=== PATIENT | female | born 1975 | race Caucasian/White ===

== ENCOUNTER 2017-10-03 13:19 | Inpatient (IN) | payer OTHER, MEDICARE ==
[~2017-10-03] VITALS: Ht 160 cm; Wt 78.5 kg
[~2017-10-03 13:19] MED LIST: BACL10 PO; GABA100 PO; HYDR1TAB94 PO; IBUP600 PO; METO25ER PO; Norco 5-325 Ta1 EACH PO; THYR60 PO
[2017-10-03 14:25] LABS: BASOPHILS ABSOLUTE AUTO 0.07 K/mm3 (0.00-0.23); BASOPHILS PERCENT AUTO 1 % (0-2); EOSINOPHILS ABSOLUTE AUTO 0.59 K/mm3 (0.00-0.68); EOSINOPHILS PERCENT AUTO 6 % (0-6); Hematocrit 38.4 % (33.0-51.0); Hemoglobin 12.9 g/dL (11.5-16.0); IMMATURE GRAN ABSOLUTE AUTO 0.04 K/mm3 (0.00-0.10); IMMATURE GRAN PERCENT AUTO 0 % (0-1); LYMPHOCYTES ABSOLUTE AUTO 2.25 K/mm3 (0.84-5.20); LYMPHOCYTES PERCENT AUTO 24 % (21-46); MONOCYTES ABSOLUTE AUTO 0.91 K/mm3 (0.16-1.47); MONOCYTES PERCENT AUTO 10 % (4-13); Mean Corpuscular HGB 30.8 pg (26.0-34.0); Mean Corpuscular HGB Conc 33.6 g/dL (31.5-36.5); Mean Corpuscular Volume 92 fL (80-100); Mean Platelet Volume 10.7 fL (9.1-12.4); NEUTROPHILS ABSOLUTE AUTO 5.39 K/mm3 (1.96-9.15); NEUTROPHILS PERCENT AUTO 58 % (41-73); Platelet Count 239 K/mm3 (150-400); RDW Coefficient Variation 13.4 % (11.7-14.2); RDW Standard Deviation 45.1 fL (35.1-46.3); Red Blood Cell Count 4.19 M/mm3 (3.80-5.20); White Blood Cell Count 9.25 K/mm3 (4.00-11.30)
[2017-10-03 15:01] LABS: Alanine Aminotransfer (ALT/SGP 32 U/L (12-78); Albumin, Blood 3.9 g/dL (3.4-5.0); Albumin/Globulin Ratio 1.1 (0.8-1.8); Alk Phos 72 U/L (50-136); Anion Gap 7 mmol/L (6-16); Aspartate Aminotrans (AST/SGOT 35 U/L (12-37); Bilirubin, Total 0.3 mg/dL (0.1-1.0); Blood Urea Nitrogen 14 mg/dL (8-24); Bun/Creatinine Ratio 15.7 (12.0-20.0); CO2, Blood 25 mmol/L (21-32); Calcium, Blood 8.4 mg/dL (8.5-10.1); Chloride, Blood 111 mmol/L (98-108); Creatinine, Blood 0.89 mg/dL (0.40-1.00); Globulin, Blood 3.4 g/dL (2.2-4.0); Glomerular Filtration Rate >60 (60-); Glucose, Blood 96 mg/dL (70-99); Potassium, Blood 4.1 mmol/L (3.5-5.5); Sodium, Blood 143 mmol/L (136-145); Total Protein, Blood 7.3 g/dL (6.4-8.2); Troponin I 0.149 ng/mL (0.000-0.040)
[2017-10-03] MEDS ORDERED: GABA100 PO (16:53)
[2017-10-03] MEDS ORDERED: FAMO20 PO (16:56)
[2017-10-04 02:32] LABS: CHOL/HDL RATIO 3.9; Cholesterol 213 mg/dL (50-200); HDL Cholesterol 54 mg/dL (>39); LDL/HDL RATIO 2.5; Low Density Lipoprotein Chol 134 mg/dL (0-110); Triglycerides 124 mg/dL (30-160); Very Low Density Lipoprot Chol 24 mg/dL (6-32)
[2017-10-04 12:57] LABS: International Normalized Ratio 1.15
[2017-10-05] MEDS ORDERED: ASPI81CH PO (09:24)
[2017-10-05] MEDS ORDERED: ATOR40TA PO (09:25)
[2017-10-05] MEDS ORDERED: TORSE20 PO (09:26)
== END 2017-10-05 11:00 | disposition home or self-care (01) | DRG 282 ==
LOC: ER 13:19 → MEDS 13:20 → ICUW 16:40 → MEDS 16:40 → ICUW 10-04 11:03
PROVIDERS: Emergency Medicine; Family Medicine; Internal Medicine Cardiovascular Disease
PROC: 4A023N7 Measurement of Cardiac Sampling and Pressure, Left Heart, Percutaneous Approach (ICD-10-PCS; principal; 2017-10-04)
PROC: B211YZZ Fluoroscopy of Multiple Coronary Arteries using Other Contrast (ICD-10-PCS; 2017-10-04)
DX: I42.1 Obstructive hypertrophic cardiomyopathy (principal); I21.4 Non-ST elevation (NSTEMI) myocardial infarction; E03.9 Hypothyroidism, unspecified; R79.89 Other specified abnormal findings of blood chemistry; I25.10 Atherosclerotic heart disease of native coronary artery without angina pectoris; Z95.0 Presence of cardiac pacemaker; I10 Essential (primary) hypertension; E11.9 Type 2 diabetes mellitus without complications
CPT/HCPCS: 36415; 71046; 80053; 80061; 83880; 84443; 84484; 85025; 85379; 85610; 86850; 86900; 86901; 93005; 93010; 93306; 93458; 96360; 96372; 99152; 99285; C1769; C1894; G0378; J0690; J1644; J1650; J2060; J2250; J3010; J7030; Q9967

== ENCOUNTER 2017-10-06 23:59 | Emergency (ER) | payer OTHER, MEDICARE ==
[~2017-10-06] VITALS: Ht 160 cm; Wt 78.0 kg
[~2017-10-06 23:59] MED LIST changes: +ASPI81CH PO; +ATOR40TA PO; +FAMO20 PO; +TORSE20 PO
[2017-10-07 01:12] LABS: BASOPHILS ABSOLUTE AUTO 0.06 K/mm3 (0.00-0.23); BASOPHILS PERCENT AUTO 1 % (0-2); EOSINOPHILS ABSOLUTE AUTO 0.45 K/mm3 (0.00-0.68); EOSINOPHILS PERCENT AUTO 5 % (0-6); Hematocrit 38.9 % (33.0-51.0); IMMATURE GRAN ABSOLUTE AUTO 0.02 K/mm3 (0.00-0.10); IMMATURE GRAN PERCENT AUTO 0 % (0-1); LYMPHOCYTES ABSOLUTE AUTO 3.04 K/mm3 (0.84-5.20); LYMPHOCYTES PERCENT AUTO 34 % (21-46); MONOCYTES ABSOLUTE AUTO 0.98 K/mm3 (0.16-1.47); MONOCYTES PERCENT AUTO 11 % (4-13); Mean Corpuscular HGB 30.6 pg (26.0-34.0); Mean Corpuscular HGB Conc 33.4 g/dL (31.5-36.5); Mean Corpuscular Volume 92 fL (80-100); Mean Platelet Volume 10.8 fL (9.1-12.4); NEUTROPHILS ABSOLUTE AUTO 4.37 K/mm3 (1.96-9.15); NEUTROPHILS PERCENT AUTO 49 % (41-73); Platelet Count 263 K/mm3 (150-400); RDW Coefficient Variation 13.4 % (11.7-14.2); RDW Standard Deviation 45.1 fL (35.1-46.3); Red Blood Cell Count 4.25 M/mm3 (3.80-5.20); White Blood Cell Count 8.92 K/mm3 (4.00-11.30)
[2017-10-07 01:25] LABS: Alanine Aminotransfer (ALT/SGP 45 U/L (12-78); Albumin/Globulin Ratio 1.1 (0.8-1.8); Alk Phos 63 U/L (50-136); Anion Gap 7 mmol/L (6-16); Aspartate Aminotrans (AST/SGOT 49 U/L (12-37); Bilirubin, Total 0.2 mg/dL (0.1-1.0); Blood Urea Nitrogen 17 mg/dL (8-24); Bun/Creatinine Ratio 20.3 (12.0-20.0); CO2, Blood 25 mmol/L (21-32); Calcium, Blood 9.3 mg/dL (8.5-10.1); Chloride, Blood 106 mmol/L (98-108); Creatinine, Blood 0.84 mg/dL (0.40-1.00); Globulin, Blood 3.5 g/dL (2.2-4.0); Glomerular Filtration Rate >60 (60-); Glucose, Blood 83 mg/dL (70-99); Potassium, Blood 4.3 mmol/L (3.5-5.5); Sodium, Blood 138 mmol/L (136-145); Total Protein, Blood 7.5 g/dL (6.4-8.2)
[2017-10-07 03:23] LABS: Troponin I 0.164 ng/mL (0.000-0.040)
== END 2017-10-07 03:45 | disposition home or self-care (01) ==
LOC: ER 23:59
PROVIDERS: Emergency Medicine
DX: R60.9 Edema, unspecified (principal); Z88.8 Allergy status to other drugs, medicaments and biological substances; Z79.899 Other long term (current) drug therapy; Z79.82 Long term (current) use of aspirin
CPT/HCPCS: 71046; 80053; 83880; 84484; 85025; 93005; 93010; 96374; 96375; 99283; J1885

== ENCOUNTER 2017-10-19 11:28 | Observation (INO) | payer OTHER, MEDICARE ==
[~2017-10-19] VITALS: Ht 160 cm; Wt 77.5 kg
[2017-10-19 11:54] LABS: BASOPHILS ABSOLUTE AUTO 0.07 K/mm3 (0.00-0.23); BASOPHILS PERCENT AUTO 1 % (0-2); EOSINOPHILS ABSOLUTE AUTO 0.29 K/mm3 (0.00-0.68); EOSINOPHILS PERCENT AUTO 4 % (0-6); Hematocrit 38.9 % (33.0-51.0); Hemoglobin 13.5 g/dL (11.5-16.0); IMMATURE GRAN ABSOLUTE AUTO 0.04 K/mm3 (0.00-0.10); IMMATURE GRAN PERCENT AUTO 1 % (0-1); LYMPHOCYTES ABSOLUTE AUTO 2.05 K/mm3 (0.84-5.20); LYMPHOCYTES PERCENT AUTO 25 % (21-46); MONOCYTES ABSOLUTE AUTO 0.86 K/mm3 (0.16-1.47); MONOCYTES PERCENT AUTO 10 % (4-13); Mean Corpuscular HGB 31.2 pg (26.0-34.0); Mean Corpuscular HGB Conc 34.7 g/dL (31.5-36.5); Mean Corpuscular Volume 90 fL (80-100); Mean Platelet Volume 10.6 fL (9.1-12.4); NEUTROPHILS ABSOLUTE AUTO 4.95 K/mm3 (1.96-9.15); NEUTROPHILS PERCENT AUTO 60 % (41-73); Platelet Count 275 K/mm3 (150-400); RDW Coefficient Variation 13.2 % (11.7-14.2); RDW Standard Deviation 43.2 fL (35.1-46.3); Red Blood Cell Count 4.33 M/mm3 (3.80-5.20); White Blood Cell Count 8.26 K/mm3 (4.00-11.30)
[2017-10-19] MEDS ORDERED: STIOLTO RESPIMAT4 GM (12:19)
[2017-10-19] MEDS ORDERED: ALBU90OI INH (12:20)
[2017-10-19] MEDS ORDERED: ARNUITY ELLIP200 MCG (12:20)
[2017-10-19] MEDS ORDERED: ACYC200 PO (12:21)
[2017-10-19 12:22] LABS: Alanine Aminotransfer (ALT/SGP 49 U/L (12-78); Albumin, Blood 3.9 g/dL (3.4-5.0); Alk Phos 66 U/L (50-136); Anion Gap 7 mmol/L (6-16); Aspartate Aminotrans (AST/SGOT 59 U/L (12-37); Bilirubin, Total 0.3 mg/dL (0.1-1.0); Blood Urea Nitrogen 21 mg/dL (8-24); Bun/Creatinine Ratio 20.4 (12.0-20.0); CO2, Blood 33 mmol/L (21-32); Calcium, Blood 9.4 mg/dL (8.5-10.1); Chloride, Blood 99 mmol/L (98-108); Creatinine, Blood 1.03 mg/dL (0.40-1.00); Globulin, Blood 3.9 g/dL (2.2-4.0); Glomerular Filtration Rate >60 (60-); Glucose, Blood 104 mg/dL (70-99); Sodium, Blood 139 mmol/L (136-145); Total Protein, Blood 7.8 g/dL (6.4-8.2)
[2017-10-19] MEDS ORDERED: NITR.4SL SL (12:22)
[2017-10-19] MEDS ORDERED: FERSU90EL PO (12:24)
[2017-10-19] MEDS ORDERED: METO25ER PO (13:20)
[2017-10-19] MEDS ORDERED: THYR60 PO (13:20)
[2017-10-19] MEDS ORDERED: ATOR40TA PO (13:20)
[2017-10-19] MEDS ORDERED: ASPI81CH PO (13:20)
[2017-10-19] MEDS ORDERED: TORSE20 PO (13:20)
[2017-10-19] MEDS ORDERED: FAMO20 PO (13:21)
[2017-10-19] MEDS ORDERED: IBUP600 PO (13:21)
[2017-10-19] MEDS ORDERED: BACL10 PO (13:22)
[2017-10-19] MEDS ORDERED: VENL37.5 PO (17:55)
[2017-10-19] MEDS ORDERED: MELA3 PO (17:55)
[2017-10-19] MEDS ORDERED: GABA100 PO (17:55)
[2017-10-19] MEDS ORDERED: Excedrin Extra1 EACH PO (17:56)
[2017-10-19] MEDS ORDERED: XYZAL5 MG PO (17:58)
[2017-10-20 04:40] LABS: Bun/Creatinine Ratio 23.7 (12.0-20.0); Calcium, Blood 9.3 mg/dL (8.5-10.1); Creatinine, Blood 1.14 mg/dL (0.40-1.00); Potassium, Blood 3.1 mmol/L (3.5-5.5); Troponin I 0.421 ng/mL (0.000-0.040)
[2017-10-20] MEDS ORDERED: POTA10T PO (14:54)
== END 2017-10-20 17:55 | disposition home or self-care (01) ==
LOC: ER 11:28 → PCU 11:29
PROVIDERS: Hospitalist; Physician Assistant
DX: R55 Syncope and collapse (principal); I42.1 Obstructive hypertrophic cardiomyopathy; E78.5 Hyperlipidemia, unspecified; I11.0 Hypertensive heart disease with heart failure; I50.9 Heart failure, unspecified; E03.9 Hypothyroidism, unspecified; K21.9 Gastro-esophageal reflux disease without esophagitis; Z95.810 Presence of automatic (implantable) cardiac defibrillator; E87.6 Hypokalemia
CPT/HCPCS: 36415; 76830; 76856; 80048; 80053; 83880; 84443; 84484; 85025; 93005; 93010; 96372; 96374; 96375; 96376; 99285; G0378; J1650; J1940; J2001; J2405; J3480

== ENCOUNTER 2017-10-24 04:58 | Emergency (ER) | payer OTHER, MEDICARE ==
[~2017-10-24] VITALS: Ht 160 cm; Wt 74.8 kg
[~2017-10-24 04:58] MED LIST changes: +ACYC200 PO; +ALBU90OI INH; +ARNUITY ELLIP200 MCG; +Excedrin Extra1 EACH PO; +FERSU90EL PO; +MELA3 PO; +NITR.4SL SL; +POTA10T PO; +STIOLTO RESPIMAT4 GM; +VENL37.5 PO; +XYZAL5 MG PO
[2017-10-24 06:52] LABS: Alanine Aminotransfer (ALT/SGP 46 U/L (12-78); Albumin, Blood 4.5 g/dL (3.4-5.0); Albumin/Globulin Ratio 1.1 (0.8-1.8); Alk Phos 74 U/L (50-136); Anion Gap 10 mmol/L (6-16); Aspartate Aminotrans (AST/SGOT 53 U/L (12-37); Bilirubin, Total 0.5 mg/dL (0.1-1.0); Blood Urea Nitrogen 14 mg/dL (8-24); Bun/Creatinine Ratio 14.8 (12.0-20.0); CO2, Blood 25 mmol/L (21-32); Calcium, Blood 9.4 mg/dL (8.5-10.1); Chloride, Blood 102 mmol/L (98-108); Creatinine, Blood 0.95 mg/dL (0.40-1.00); Glomerular Filtration Rate >60 (60-); Glucose, Blood 88 mg/dL (70-99); Sodium, Blood 137 mmol/L (136-145); Total Protein, Blood 8.5 g/dL (6.4-8.2)
[2017-10-24 07:50] LABS: Magnesium, Blood 2.4 mg/dL (1.6-2.4); Troponin I 0.146 ng/mL (0.000-0.040)
[2017-10-24 08:05] LABS: BASOPHILS ABSOLUTE AUTO 0.08 K/mm3 (0.00-0.23); BASOPHILS PERCENT AUTO 1 % (0-2); EOSINOPHILS ABSOLUTE AUTO 0.22 K/mm3 (0.00-0.68); EOSINOPHILS PERCENT AUTO 3 % (0-6); Hematocrit 40.6 % (33.0-51.0); Hemoglobin 13.6 g/dL (11.5-16.0); IMMATURE GRAN ABSOLUTE AUTO 0.03 K/mm3 (0.00-0.10); IMMATURE GRAN PERCENT AUTO 0 % (0-1); LYMPHOCYTES ABSOLUTE AUTO 3.01 K/mm3 (0.84-5.20); LYMPHOCYTES PERCENT AUTO 35 % (21-46); MONOCYTES ABSOLUTE AUTO 1.11 K/mm3 (0.16-1.47); MONOCYTES PERCENT AUTO 13 % (4-13); Mean Corpuscular HGB 30.6 pg (26.0-34.0); Mean Corpuscular HGB Conc 33.5 g/dL (31.5-36.5); Mean Corpuscular Volume 91 fL (80-100); Mean Platelet Volume 10.5 fL (9.1-12.4); NEUTROPHILS ABSOLUTE AUTO 4.06 K/mm3 (1.96-9.15); NEUTROPHILS PERCENT AUTO 48 % (41-73); Platelet Count 236 K/mm3 (150-400); RDW Coefficient Variation 13.2 % (11.7-14.2); RDW Standard Deviation 44.7 fL (35.1-46.3); Red Blood Cell Count 4.44 M/mm3 (3.80-5.20); White Blood Cell Count 8.51 K/mm3 (4.00-11.30)
[2017-10-24] MEDS ORDERED: HYDMOR2 PO (08:56)
[2017-10-24] MEDS ORDERED: Zofran Odt4 MG SL (08:56)
== END 2017-10-24 09:00 | disposition home or self-care (01) ==
LOC: ER 04:58
PROVIDERS: Emergency Medicine
DX: K85.90 Acute pancreatitis without necrosis or infection, unspecified (principal); K74.60 Unspecified cirrhosis of liver; G89.29 Other chronic pain; I25.10 Atherosclerotic heart disease of native coronary artery without angina pectoris; I42.9 Cardiomyopathy, unspecified; I50.9 Heart failure, unspecified; I25.2 Old myocardial infarction; Z88.4 Allergy status to anesthetic agent; Z88.5 Allergy status to narcotic agent; Z88.8 Allergy status to other drugs, medicaments and biological substances; Z79.82 Long term (current) use of aspirin; Z79.899 Other long term (current) drug therapy
CPT/HCPCS: 36415; 71046; 76705; 80053; 83690; 83735; 83880; 84484; 85025; 93005; 93010; J2405; J7030

== ENCOUNTER 2017-10-25 13:01 | Emergency (ER) | payer OTHER, MEDICARE ==
[~2017-10-25] VITALS: Ht 160 cm; Wt 77.0 kg
[~2017-10-25 13:01] MED LIST changes: +HYDMOR2 PO; +Zofran Odt4 MG SL
[2017-10-25 14:48] LABS: Source, Urine Clean Catch
[2017-10-25 14:59] LABS: Bilirubin, Urine Neg (Neg); Blood, Urine Neg (Neg); Glucose Qualitative, Urine Neg (Neg); Ketones, Urine Neg (Neg); Leukocyte Esterase, Urine Neg (Neg); Nitrite, Urine Neg (Neg); Protein, Urine Neg (Neg); Urobilinogen, Urine NORM (Normal)
[2017-10-25 15:10] LABS: Appearance, Urine Clear (Clear); Color, Urine Pale Yellow (P-Yellow)
[2017-10-25 15:19] LABS: Alanine Aminotransfer (ALT/SGP 35 U/L (12-78); Albumin, Blood 4.3 g/dL (3.4-5.0); Albumin/Globulin Ratio 1.2 (0.8-1.8); Alk Phos 67 U/L (50-136); Anion Gap 11 mmol/L (6-16); Aspartate Aminotrans (AST/SGOT 34 U/L (12-37); Bilirubin, Total 0.3 mg/dL (0.1-1.0); Blood Urea Nitrogen 15 mg/dL (8-24); Bun/Creatinine Ratio 15.9 (12.0-20.0); CO2, Blood 23 mmol/L (21-32); Calcium, Blood 9.8 mg/dL (8.5-10.1); Chloride, Blood 106 mmol/L (98-108); Creatinine, Blood 0.94 mg/dL (0.40-1.00); Free Thyroxine 1.69 ng/dL (0.70-1.60); Globulin, Blood 3.5 g/dL (2.2-4.0); Glomerular Filtration Rate >60 (60-); Glucose, Blood 87 mg/dL (70-99); Potassium, Blood 3.8 mmol/L (3.5-5.5); Sodium, Blood 140 mmol/L (136-145); Total Protein, Blood 7.8 g/dL (6.4-8.2); Troponin I 0.151 ng/mL (0.000-0.040)
[2017-10-25 15:56] LABS: BASOPHILS ABSOLUTE AUTO 0.06 K/mm3 (0.00-0.23); BASOPHILS PERCENT AUTO 1 % (0-2); EOSINOPHILS PERCENT AUTO 3 % (0-6); Hematocrit 39.8 % (33.0-51.0); Hemoglobin 13.4 g/dL (11.5-16.0); IMMATURE GRAN ABSOLUTE AUTO 0.02 K/mm3 (0.00-0.10); IMMATURE GRAN PERCENT AUTO 0 % (0-1); LYMPHOCYTES PERCENT AUTO 31 % (21-46); MONOCYTES ABSOLUTE AUTO 1.06 K/mm3 (0.16-1.47); MONOCYTES PERCENT AUTO 10 % (4-13); Mean Corpuscular HGB 30.9 pg (26.0-34.0); Mean Corpuscular HGB Conc 33.7 g/dL (31.5-36.5); Mean Corpuscular Volume 92 fL (80-100); Mean Platelet Volume 10.8 fL (9.1-12.4); NEUTROPHILS PERCENT AUTO 55 % (41-73); Platelet Count 262 K/mm3 (150-400); RDW Coefficient Variation 13.2 % (11.7-14.2); RDW Standard Deviation 44.8 fL (35.1-46.3); Red Blood Cell Count 4.33 M/mm3 (3.80-5.20); White Blood Cell Count 10.84 K/mm3 (4.00-11.30)
[2017-10-25 17:04] LABS: U Amphetamine Screen Not Detected; U Barbituate Screen Not Detected; U Benzodiazapine Screen Not Detected; U Buprenorphine Screen Not Detected; U Cannabinoids Screen Not Detected; U Cocaine Screen Not Detected; U Methadone Screen Not Detected; U Methamphetamine Screen Not Detected; U Opiates Screen Not Detected; U Oxycodone Screen Not Detected; U Phencyclidine Screen Not Detected; U Propoxyphene Screen Not Detected
== END 2017-10-25 18:08 | disposition home or self-care (01) ==
LOC: ER 13:01
PROVIDERS: Emergency Medicine
DX: R07.9 Chest pain, unspecified (principal); R55 Syncope and collapse; R10.9 Unspecified abdominal pain; F12.90 Cannabis use, unspecified, uncomplicated; I42.1 Obstructive hypertrophic cardiomyopathy; I25.2 Old myocardial infarction; Z88.8 Allergy status to other drugs, medicaments and biological substances; Z88.5 Allergy status to narcotic agent; Z79.899 Other long term (current) drug therapy; Z79.82 Long term (current) use of aspirin
CPT/HCPCS: 36415; 74177; 80053; 81003; 81025; 83690; 83880; 84439; 84443; 84484; 85025; 93005; 93010; 99284; Q9967

== ENCOUNTER 2017-11-19 02:43 | Emergency (ER) | payer OTHER, MEDICARE ==
[~2017-11-19] VITALS: Ht 160 cm; Wt 78.7 kg
[~2017-11-19 02:43] MED LIST changes: +FURO80 PO; +ONDA4ODT MM; -VENL37.5 PO; +VENL37.5ER PO
[2017-11-19 04:45] LABS: BASOPHILS ABSOLUTE AUTO 0.04 K/mm3 (0.00-0.23); BASOPHILS PERCENT AUTO 0 % (0-2); EOSINOPHILS ABSOLUTE AUTO 0.21 K/mm3 (0.00-0.68); EOSINOPHILS PERCENT AUTO 2 % (0-6); Hematocrit 40.6 % (33.0-51.0); Hemoglobin 13.8 g/dL (11.5-16.0); IMMATURE GRAN ABSOLUTE AUTO 0.05 K/mm3 (0.00-0.10); IMMATURE GRAN PERCENT AUTO 1 % (0-1); LYMPHOCYTES ABSOLUTE AUTO 2.97 K/mm3 (0.84-5.20); LYMPHOCYTES PERCENT AUTO 30 % (21-46); MONOCYTES ABSOLUTE AUTO 1.13 K/mm3 (0.16-1.47); MONOCYTES PERCENT AUTO 11 % (4-13); Mean Corpuscular HGB 30.8 pg (26.0-34.0); Mean Corpuscular Volume 91 fL (80-100); Mean Platelet Volume 10.6 fL (9.1-12.4); NEUTROPHILS ABSOLUTE AUTO 5.63 K/mm3 (1.96-9.15); NEUTROPHILS PERCENT AUTO 56 % (41-73); Platelet Count 262 K/mm3 (150-400); RDW Coefficient Variation 13.6 % (11.7-14.2); RDW Standard Deviation 44.9 fL (35.1-46.3); Red Blood Cell Count 4.48 M/mm3 (3.80-5.20); White Blood Cell Count 10.03 K/mm3 (4.00-11.30)
[2017-11-19 05:07] LABS: Alanine Aminotransfer (ALT/SGP 37 U/L (12-78); Albumin, Blood 4.1 g/dL (3.4-5.0); Alk Phos 72 U/L (50-136); Anion Gap 11 mmol/L (6-16); Aspartate Aminotrans (AST/SGOT 31 U/L (12-37); Bilirubin, Total 0.3 mg/dL (0.1-1.0); Blood Urea Nitrogen 20 mg/dL (8-24); Bun/Creatinine Ratio 24.1 (12.0-20.0); CO2, Blood 28 mmol/L (21-32); Calcium, Blood 9.4 mg/dL (8.5-10.1); Chloride, Blood 100 mmol/L (98-108); Creatinine, Blood 0.83 mg/dL (0.40-1.00); Glomerular Filtration Rate >60 (60-); Glucose, Blood 82 mg/dL (70-99); Potassium, Blood 3.4 mmol/L (3.5-5.5); Sodium, Blood 139 mmol/L (136-145); Total Protein, Blood 8.1 g/dL (6.4-8.2); Troponin I 0.321 ng/mL (0.000-0.040)
[2017-11-19] MEDS ORDERED: TORSE20 PO (06:17)
[2017-11-19] MEDS ORDERED: POTA10T PO (06:17)
== END 2017-11-19 08:40 | disposition home or self-care (01) ==
LOC: ER 02:43
PROVIDERS: Emergency Medicine
DX: I42.2 Other hypertrophic cardiomyopathy (principal); I25.2 Old myocardial infarction; Z88.8 Allergy status to other drugs, medicaments and biological substances; Z88.5 Allergy status to narcotic agent; Z79.82 Long term (current) use of aspirin; Z79.899 Other long term (current) drug therapy
CPT/HCPCS: 36415; 80053; 83880; 84484; 85025; 93005; 93010; 96374; 99284; J1940

== ENCOUNTER 2017-12-03 06:12 | Observation (INO) | payer OTHER, MEDICARE ==
[~2017-12-03] VITALS: Ht 160 cm; Wt 73.4 kg
[~2017-12-03 06:12] MED LIST changes: +Armour Thyroid90 MG PO
[2017-12-03 07:49] LABS: BASOPHILS ABSOLUTE AUTO 0.05 K/mm3 (0.00-0.23); BASOPHILS PERCENT AUTO 1 % (0-2); EOSINOPHILS ABSOLUTE AUTO 0.14 K/mm3 (0.00-0.68); EOSINOPHILS PERCENT AUTO 1 % (0-6); Hematocrit 34.2 % (33.0-51.0); Hemoglobin 11.6 g/dL (11.5-16.0); IMMATURE GRAN ABSOLUTE AUTO 0.05 K/mm3 (0.00-0.10); IMMATURE GRAN PERCENT AUTO 1 % (0-1); LYMPHOCYTES ABSOLUTE AUTO 1.94 K/mm3 (0.84-5.20); LYMPHOCYTES PERCENT AUTO 19 % (21-46); MONOCYTES ABSOLUTE AUTO 0.81 K/mm3 (0.16-1.47); MONOCYTES PERCENT AUTO 8 % (4-13); Mean Corpuscular HGB 30.7 pg (26.0-34.0); Mean Corpuscular HGB Conc 33.9 g/dL (31.5-36.5); Mean Corpuscular Volume 91 fL (80-100); NEUTROPHILS PERCENT AUTO 71 % (41-73); Platelet Count 238 K/mm3 (150-400); RDW Coefficient Variation 13.2 % (11.7-14.2); RDW Standard Deviation 43.8 fL (35.1-46.3); Red Blood Cell Count 3.78 M/mm3 (3.80-5.20); White Blood Cell Count 10.19 K/mm3 (4.00-11.30)
[2017-12-03 08:08] LABS: Alanine Aminotransfer (ALT/SGP 53 U/L (12-78); Albumin/Globulin Ratio 1.1 (0.8-1.8); Alk Phos 73 U/L (50-136); Anion Gap 11 mmol/L (6-16); Aspartate Aminotrans (AST/SGOT 52 U/L (12-37); Bilirubin, Total 0.4 mg/dL (0.1-1.0); Blood Urea Nitrogen 17 mg/dL (8-24); Bun/Creatinine Ratio 17.1 (12.0-20.0); CO2, Blood 26 mmol/L (21-32); Calcium, Blood 8.7 mg/dL (8.5-10.1); Chloride, Blood 104 mmol/L (98-108); Creatinine, Blood 0.99 mg/dL (0.40-1.00); Globulin, Blood 3.7 g/dL (2.2-4.0); Glomerular Filtration Rate >60 (60-); Glucose, Blood 104 mg/dL (70-99); Potassium, Blood 3.5 mmol/L (3.5-5.5); Sodium, Blood 141 mmol/L (136-145); Total Protein, Blood 7.7 g/dL (6.4-8.2); Troponin I 0.192 ng/mL (0.000-0.040)
[2017-12-03] MEDS ORDERED: ZYRTEC10 M2 PO (11:20)
[2017-12-03] MEDS ORDERED: TORSE20 PO (11:21)
[2017-12-03] MEDS ORDERED: POTCHL10ER PO (11:22)
[2017-12-03 14:07] LABS: Creatine Kinase MB 4.3 ng/mL (0.0-3.6); Creatine Kinase MB Index 2.3 (0.0-4.0); Troponin I 0.218 ng/mL (0.000-0.040)
[2017-12-03 16:11] LABS: Source, Urine Clean Catch
[2017-12-03 16:22] LABS: Bilirubin, Urine Neg (Neg); Blood, Urine Neg (Neg); Glucose Qualitative, Urine Neg (Neg); Ketones, Urine Neg (Neg); Leukocyte Esterase, Urine Neg (Neg); Nitrite, Urine Neg (Neg); Protein, Urine Neg (Neg); Specific Gravity, Urine 1.015 (1.003-1.022); Urobilinogen, Urine NORM (Normal)
[2017-12-03 16:28] LABS: Appearance, Urine Clear (Clear); Color, Urine Yellow (P-Yellow)
[2017-12-03 20:18] LABS: Creatine Kinase MB 3.4 ng/mL (0.0-3.6); Creatine Kinase MB Index 1.9 (0.0-4.0); Troponin I 0.217 ng/mL (0.000-0.040)
[2017-12-04 06:28] LABS: Bun/Creatinine Ratio 17.1 (12.0-20.0); Calcium, Blood 9.3 mg/dL (8.5-10.1); Creatinine, Blood 1.17 mg/dL (0.40-1.00); Potassium, Blood 3.6 mmol/L (3.5-5.5)
[2017-12-04] MEDS ORDERED: SACC250C PO (15:50)
[2017-12-04] MEDS ORDERED: HYDR10 PO (15:52)
[2017-12-04] MEDS ORDERED: VANCOMYCIN125 MG/2.5 PO (15:54)
[2017-12-05] MEDS ORDERED: TORSE20 PO (20:15)
== END 2017-12-04 17:45 | disposition home or self-care (01) ==
LOC: ER 06:12 → PCU 12:43
PROVIDERS: Emergency Medicine; Family Medicine
DX: A04.72 Enterocolitis due to Clostridium difficile, not specified as recurrent (principal); I42.1 Obstructive hypertrophic cardiomyopathy; I25.2 Old myocardial infarction; E03.9 Hypothyroidism, unspecified; I12.9 Hypertensive chronic kidney disease with stage 1 through stage 4 chronic kidney disease, or unspecified chronic kidney disease; I50.9 Heart failure, unspecified; F41.9 Anxiety disorder, unspecified; Q24.8 Other specified congenital malformations of heart; R06.02 Shortness of breath; R60.9 Edema, unspecified; R79.89 Other specified abnormal findings of blood chemistry; R00.0 Tachycardia, unspecified; R30.0 Dysuria; Z79.01 Long term (current) use of anticoagulants; Z95.810 Presence of automatic (implantable) cardiac defibrillator; Z88.5 Allergy status to narcotic agent; Z88.8 Allergy status to other drugs, medicaments and biological substances; Z79.82 Long term (current) use of aspirin; Z79.899 Other long term (current) drug therapy
CPT/HCPCS: 36415; 71046; 80048; 80053; 81000; 81003; 81025; 82550; 82553; 82947; 83880; 84484; 85025; 87493; 93005; 93010; 96374; 96376; 99285-25; G0378; J1650; J2405

== ENCOUNTER → 2018-01-17 | Outpatient (CLI) | payer MEDICARE ==
[~2018-01-17] MED LIST changes: +CYAN500 PO; +FOLI1 PO; +HYDR10 PO; +MAGOXI400 PO; +POTCHL10ER PO; +SACC250C PO; +VANCOMYCIN125 MG/2.5 PO; +ZYRTEC10 M2 PO
[2018-01-17 18:32] LABS: Appearance, Urine Clear (Clear); Blood, Urine 2+ (Neg); Color, Urine Amber (P-Yellow); Glucose Qualitative, Urine Neg (Neg); Ketones, Urine Neg (Neg); Leukocyte Esterase, Urine 1+ (Neg); Nitrite, Urine Pos (Neg); Protein, Urine Neg (Neg); Specific Gravity, Urine 1.015 (1.003-1.022); Urobilinogen, Urine 2+ (Normal); pH, Urine 6.5 (5.0-8.0)
[2018-01-17 19:05] LABS: Bilirubin, Urine 2+ (Neg)
[2018-01-17 19:07] LABS: Bacteria Few /hpf; Hyaline Casts 0-2 /lpf (0-2); Squamous Epithelial Cells Few /hpf (Few)
== END ==
LOC: LAB SHORT 18:06 → LAB 18:06
PROVIDERS: Registered Nurse
DX: R30.0 Dysuria (principal)
CPT/HCPCS: 81001; 87077; 87086; 87186

== ENCOUNTER 2018-01-24 03:33 | Observation (INO) | payer MEDICARE ==
[~2018-01-24] VITALS: Ht 160 cm; Wt 75.2 kg
[2018-01-24 03:56] LABS: BASOPHILS ABSOLUTE AUTO 0.05 K/mm3 (0.00-0.23); BASOPHILS PERCENT AUTO 1 % (0-2); EOSINOPHILS ABSOLUTE AUTO 0.24 K/mm3 (0.00-0.68); EOSINOPHILS PERCENT AUTO 3 % (0-6); Hematocrit 31.5 % (33.0-51.0); Hemoglobin 10.6 g/dL (11.5-16.0); IMMATURE GRAN ABSOLUTE AUTO 0.03 K/mm3 (0.00-0.10); IMMATURE GRAN PERCENT AUTO 0 % (0-1); LYMPHOCYTES ABSOLUTE AUTO 2.67 K/mm3 (0.84-5.20); LYMPHOCYTES PERCENT AUTO 31 % (21-46); MONOCYTES ABSOLUTE AUTO 0.95 K/mm3 (0.16-1.47); MONOCYTES PERCENT AUTO 11 % (4-13); Mean Corpuscular HGB Conc 33.7 g/dL (31.5-36.5); Mean Corpuscular Volume 92 fL (80-100); Mean Platelet Volume 10.8 fL (9.1-12.4); NEUTROPHILS ABSOLUTE AUTO 4.58 K/mm3 (1.96-9.15); NEUTROPHILS PERCENT AUTO 54 % (41-73); Platelet Count 252 K/mm3 (150-400); RDW Coefficient Variation 13.8 % (11.7-14.2); RDW Standard Deviation 46.4 fL (35.1-46.3); Red Blood Cell Count 3.42 M/mm3 (3.80-5.20); White Blood Cell Count 8.52 K/mm3 (4.00-11.30)
[2018-01-24 04:18] LABS: Alanine Aminotransfer (ALT/SGP 33 U/L (12-78); Albumin, Blood 3.8 g/dL (3.4-5.0); Albumin/Globulin Ratio 1.1 (0.8-1.8); Alk Phos 78 U/L (50-136); Anion Gap 7 mmol/L (6-16); Aspartate Aminotrans (AST/SGOT 39 U/L (12-37); Bilirubin, Total 0.3 mg/dL (0.1-1.0); Blood Urea Nitrogen 24 mg/dL (8-24); Bun/Creatinine Ratio 23.3 (12.0-20.0); CO2, Blood 29 mmol/L (21-32); Calcium, Blood 8.8 mg/dL (8.5-10.1); Chloride, Blood 103 mmol/L (98-108); Creatinine, Blood 1.03 mg/dL (0.40-1.00); Globulin, Blood 3.6 g/dL (2.2-4.0); Glomerular Filtration Rate >60 (60-); Glucose, Blood 85 mg/dL (70-99); Magnesium, Blood 2.5 mg/dL (1.6-2.4); Potassium, Blood 3.4 mmol/L (3.5-5.5); Sodium, Blood 139 mmol/L (136-145); Total Protein, Blood 7.4 g/dL (6.4-8.2); Troponin I 0.317 ng/mL (0.000-0.040)
[2018-01-24] MEDS ORDERED: NITR100 PO (09:19)
[2018-01-24 12:40] LABS: Troponin I 0.286 ng/mL (0.000-0.040)
[2018-01-24 12:54] LABS: Creatine Kinase MB 2.7 ng/mL (0.0-3.6); Creatine Kinase MB Index 1.4 (0.0-4.0)
[2018-01-24 20:50] LABS: Troponin I 0.227 ng/mL (0.000-0.040)
[2018-01-24 20:59] LABS: Source, Urine Clean Catch
[2018-01-24 21:03] LABS: Bilirubin, Urine Neg (Neg); Blood, Urine Neg (Neg); Glucose Qualitative, Urine Neg (Neg); Ketones, Urine Neg (Neg); Leukocyte Esterase, Urine Neg (Neg); Nitrite, Urine Neg (Neg); Protein, Urine Neg (Neg); Specific Gravity, Urine 1.005 (1.003-1.022); Urobilinogen, Urine NORM (Normal)
[2018-01-24 21:11] LABS: Appearance, Urine Clear (Clear); Color, Urine Yellow (P-Yellow)
[2018-01-25 05:39] LABS: BASOPHILS ABSOLUTE AUTO 0.04 K/mm3 (0.00-0.23); BASOPHILS PERCENT AUTO 1 % (0-2); EOSINOPHILS ABSOLUTE AUTO 0.26 K/mm3 (0.00-0.68); EOSINOPHILS PERCENT AUTO 3 % (0-6); Hematocrit 33.3 % (33.0-51.0); Hemoglobin 11.2 g/dL (11.5-16.0); IMMATURE GRAN ABSOLUTE AUTO 0.06 K/mm3 (0.00-0.10); IMMATURE GRAN PERCENT AUTO 1 % (0-1); LYMPHOCYTES PERCENT AUTO 32 % (21-46); MONOCYTES ABSOLUTE AUTO 0.86 K/mm3 (0.16-1.47); MONOCYTES PERCENT AUTO 10 % (4-13); Mean Corpuscular HGB 30.9 pg (26.0-34.0); Mean Corpuscular HGB Conc 33.6 g/dL (31.5-36.5); Mean Corpuscular Volume 92 fL (80-100); Mean Platelet Volume 11.1 fL (9.1-12.4); NEUTROPHILS ABSOLUTE AUTO 4.65 K/mm3 (1.96-9.15); NEUTROPHILS PERCENT AUTO 54 % (41-73); Platelet Count 259 K/mm3 (150-400); RDW Coefficient Variation 13.4 % (11.7-14.2); RDW Standard Deviation 45.3 fL (35.1-46.3); Red Blood Cell Count 3.63 M/mm3 (3.80-5.20); White Blood Cell Count 8.57 K/mm3 (4.00-11.30)
[2018-01-25 06:33] LABS: Albumin, Blood 3.8 g/dL (3.4-5.0); Albumin/Globulin Ratio 1.1 (0.8-1.8); Bilirubin, Total 0.5 mg/dL (0.1-1.0); Bun/Creatinine Ratio 14.4 (12.0-20.0); Creatinine, Blood 1.18 mg/dL (0.40-1.00); Globulin, Blood 3.6 g/dL (2.2-4.0); Potassium, Blood 3.5 mmol/L (3.5-5.5); Total Protein, Blood 7.4 g/dL (6.4-8.2)
[2018-01-25] MEDS ORDERED: IBUP600 PO (12:50)
== END 2018-01-25 15:25 | disposition home or self-care (01) ==
LOC: ER 03:33 → MEDS 03:34 → ENPENDDIS 01-25 13:12 → MEDS 01-25 15:25
PROVIDERS: Emergency Medicine; Internal Medicine
DX: R55 Syncope and collapse (principal); N17.9 Acute kidney failure, unspecified; R07.89 Other chest pain; I11.0 Hypertensive heart disease with heart failure; I50.9 Heart failure, unspecified; I25.2 Old myocardial infarction; I42.1 Obstructive hypertrophic cardiomyopathy; E03.9 Hypothyroidism, unspecified; F41.9 Anxiety disorder, unspecified; G62.9 Polyneuropathy, unspecified; R79.89 Other specified abnormal findings of blood chemistry; E87.6 Hypokalemia; E06.3 Autoimmune thyroiditis; Z79.82 Long term (current) use of aspirin; Z79.899 Other long term (current) drug therapy; Z88.5 Allergy status to narcotic agent; Z88.8 Allergy status to other drugs, medicaments and biological substances; Z95.0 Presence of cardiac pacemaker
CPT/HCPCS: 36415; 71046; 80053; 81003; 82550; 82553; 83735; 83880; 84484; 85025; 85027; 93005; 93010; 96374; 96375; 99285-25; G0378; J2060; J2550

== ENCOUNTER 2018-07-06 01:35 | Emergency (ER) | payer MEDICARE ==
[~2018-07-06] VITALS: Ht 167.6 cm; Wt 68.0 kg
[~2018-07-06 01:35] MED LIST changes: +Ativan0.5 MG PO; +Ativan1 MG PO; +Bactrim Ds Tab1 EACH PO; +LEVSOD100 PO; +METO25 PO; +NITR100 PO; +NP THYROID30 MG PO; -POTCHL10ER PO; +POTCHL20ER PO; +SPIR25 PO; +WARF5 PO
[2018-07-06 02:48] LABS: BASOPHILS ABSOLUTE AUTO 0.06 K/mm3 (0.00-0.23); BASOPHILS PERCENT AUTO 0 % (0-2); EOSINOPHILS ABSOLUTE AUTO 0.38 K/mm3 (0.00-0.68); EOSINOPHILS PERCENT AUTO 3 % (0-6); Hematocrit 31.9 % (33.0-51.0); Mean Corpuscular HGB 24.9 pg (26.0-34.0); Mean Corpuscular HGB Conc 31.3 g/dL (31.5-36.5); Mean Corpuscular Volume 80 fL (80-100); Mean Platelet Volume 10.1 fL (9.1-12.4); Platelet Count 261 K/mm3 (150-400); RDW Coefficient Variation 17.6 % (11.7-14.2); RDW Standard Deviation 51.2 fL (35.1-46.3); Red Blood Cell Count 4.01 M/mm3 (3.80-5.20); White Blood Cell Count 14.15 K/mm3 (4.00-11.30)
[2018-07-06 02:52] LABS: IMMATURE GRAN ABSOLUTE AUTO 0.15 K/mm3 (0.00-0.10); IMMATURE GRAN PERCENT AUTO 1 % (0-1); LYMPHOCYTES ABSOLUTE AUTO 3.73 K/mm3 (0.84-5.20); LYMPHOCYTES PERCENT AUTO 26 % (21-46); MONOCYTES ABSOLUTE AUTO 1.43 K/mm3 (0.16-1.47); MONOCYTES PERCENT AUTO 10 % (4-13); NEUTROPHILS PERCENT AUTO 59 % (41-73)
[2018-07-06 03:08] LABS: Alanine Aminotransfer (ALT/SGP 106 U/L (12-78); Albumin, Blood 3.3 g/dL (3.4-5.0); Albumin/Globulin Ratio 0.8 (0.8-1.8); Alk Phos 229 U/L (50-136); Anion Gap 8 mmol/L (6-16); Aspartate Aminotrans (AST/SGOT 53 U/L (12-37); Bilirubin, Total 0.4 mg/dL (0.1-1.0); Blood Urea Nitrogen 15 mg/dL (8-24); Bun/Creatinine Ratio 18.1 (12.0-20.0); CO2, Blood 27 mmol/L (21-32); Calcium, Blood 9.2 mg/dL (8.5-10.1); Chloride, Blood 104 mmol/L (98-108); Creatinine, Blood 0.83 mg/dL (0.40-1.00); Globulin, Blood 4.2 g/dL (2.2-4.0); Glomerular Filtration Rate >60 (60-); Glucose, Blood 95 mg/dL (70-99); Potassium, Blood 3.4 mmol/L (3.5-5.5); Sodium, Blood 139 mmol/L (136-145); Total Protein, Blood 7.5 g/dL (6.4-8.2); Troponin I 0.278 ng/mL (0.000-0.040)
[2018-07-06 03:09] LABS: BAND PERCENT MAN 1 % (0-8); BASOPHILS PERCENT MAN 0 % (0-2); EOSINOPHILS ABSOLUTE MAN 0.84 K/mm3 (0.00-0.68); EOSINOPHILS PERCENT MAN 6 % (0-6); LYMPHOCYTES ABSOLUTE MAN 3.67 K/mm3 (0.84-5.20); LYMPHOCYTES PERCENT MAN 26 % (21-46); MONOCYTES ABSOLUTE MAN 1.13 K/mm3 (0.16-1.47); MONOCYTES PERCENT MAN 8 % (4-13); MYELOCYTE ABSOLUTE MAN 0.28 K/mm3 (0.00-0.00); MYELOCYTE PERCENT MAN 2 % (0-0); SEG NEUTROPHILS PERCENT MAN 57 % (41-73); TOTAL CELLS COUNTED 100
[2018-07-06 04:17] LABS: Source, Urine Clean Catch
[2018-07-06 04:19] LABS: Bilirubin, Urine Neg (Neg); Blood, Urine 1+ (Neg); Glucose Qualitative, Urine Neg (Neg); Ketones, Urine Neg (Neg); Leukocyte Esterase, Urine 2+ (Neg); Nitrite, Urine Neg (Neg); Protein, Urine Neg (Neg); Specific Gravity, Urine 1.005 (1.003-1.022); Urobilinogen, Urine NORM (Normal)
[2018-07-06 04:24] LABS: Appearance, Urine Clear (Clear); Color, Urine Yellow (P-Yellow); Red Blood Cells, Urine 0-2 /hpf (0-2)
[2018-07-06 04:25] LABS: Bacteria Mod /hpf; Squamous Epithelial Cells Not Seen /hpf (Few)
== END 2018-07-06 04:42 | disposition home or self-care (01) ==
LOC: ER 01:35
PROVIDERS: Emergency Medicine
DX: J06.9 Acute upper respiratory infection, unspecified (principal); E06.3 Autoimmune thyroiditis; I50.9 Heart failure, unspecified; I42.9 Cardiomyopathy, unspecified; I25.2 Old myocardial infarction; Z79.82 Long term (current) use of aspirin; Z88.4 Allergy status to anesthetic agent; Z88.8 Allergy status to other drugs, medicaments and biological substances; Z79.899 Other long term (current) drug therapy; Z79.01 Long term (current) use of anticoagulants
CPT/HCPCS: 71046; 80053; 81001; 83880; 84484; 85025; 87086; 93005; 93010; 99284-25

== ENCOUNTER → 2018-07-11 | Outpatient (CLI) | payer MEDICARE ==
[2018-07-12 10:24] LABS: Appearance, Urine Clear (Clear); Bilirubin, Urine Neg (Neg); Blood, Urine Neg (Neg); Color, Urine Yellow (P-Yellow); Glucose Qualitative, Urine Neg (Neg); Ketones, Urine Neg (Neg); Leukocyte Esterase, Urine 1+ (Neg); Nitrite, Urine Neg (Neg); Protein, Urine 1+ (Neg); Urobilinogen, Urine NORM (Normal)
[2018-07-12 11:28] LABS: Bacteria Few /hpf; Mucus Light (0-Heavy); Red Blood Cells, Urine Rare /hpf (0-2); Squamous Epithelial Cells Mod /hpf (Few); White Blood Cells, Urine 0-2 /hpf (0-5)
== END ==
LOC: LAB SHORT 17:53 → LAB 17:53
PROVIDERS: Nurse Practitioner Family
DX: N89.8 Other specified noninflammatory disorders of vagina (principal); R35.0 Frequency of micturition
CPT/HCPCS: 81001; 87086

== ENCOUNTER 2018-07-26 15:13 | Emergency (ER) | payer OTHER, MEDICARE ==
[~2018-07-26] VITALS: Ht 160 cm; Wt 70.8 kg
[2018-07-26] MEDS ORDERED: CYCL10 PO (17:38)
[2018-07-26] MEDS ORDERED: Naprosyn500 MG PO (17:38)
== END 2018-07-26 17:59 | disposition home or self-care (01) ==
LOC: ER 15:13
DX: S16.1XXA Strain of muscle, fascia and tendon at neck level, initial encounter (principal); S29.012A Strain of muscle and tendon of back wall of thorax, initial encounter; R11.0 Nausea; V49.9XXA Car occupant (driver) (passenger) injured in unspecified traffic accident, initial encounter; Z88.8 Allergy status to other drugs, medicaments and biological substances; Z88.5 Allergy status to narcotic agent; Z79.899 Other long term (current) drug therapy; Z79.82 Long term (current) use of aspirin; Z79.01 Long term (current) use of anticoagulants; I50.9 Heart failure, unspecified; I25.2 Old myocardial infarction

== ENCOUNTER 2019-01-13 16:50 | Emergency (ER) | payer MEDICARE ==
[~2019-01-13] VITALS: Ht 160 cm; Wt 68.0 kg
[~2019-01-13 16:50] MED LIST changes: +CYCL10 PO; +Naprosyn500 MG PO
[2019-01-13 17:20] LABS: BASOPHILS ABSOLUTE AUTO 0.03 K/mm3 (0.00-0.23); BASOPHILS PERCENT AUTO 0 % (0-2); EOSINOPHILS ABSOLUTE AUTO 0.08 K/mm3 (0.00-0.68); EOSINOPHILS PERCENT AUTO 1 % (0-6); Hematocrit 39.3 % (33.0-51.0); IMMATURE GRAN ABSOLUTE AUTO 0.04 K/mm3 (0.00-0.10); IMMATURE GRAN PERCENT AUTO 1 % (0-1); LYMPHOCYTES ABSOLUTE AUTO 1.93 K/mm3 (0.84-5.20); LYMPHOCYTES PERCENT AUTO 25 % (21-46); MONOCYTES ABSOLUTE AUTO 0.85 K/mm3 (0.16-1.47); MONOCYTES PERCENT AUTO 11 % (4-13); Mean Corpuscular HGB 29.6 pg (26.0-34.0); Mean Corpuscular HGB Conc 33.1 g/dL (31.5-36.5); Mean Corpuscular Volume 90 fL (80-100); Mean Platelet Volume 9.3 fL (9.1-12.4); NEUTROPHILS ABSOLUTE AUTO 4.68 K/mm3 (1.96-9.15); NEUTROPHILS PERCENT AUTO 61 % (41-73); Platelet Count 361 K/mm3 (150-400); RDW Coefficient Variation 14.6 % (11.7-14.2); RDW Standard Deviation 47.5 fL (35.1-46.3); Red Blood Cell Count 4.39 M/mm3 (3.80-5.20); White Blood Cell Count 7.61 K/mm3 (4.00-11.30)
[2019-01-13 17:47] LABS: Alanine Aminotransfer (ALT/SGP 44 U/L (12-78); Albumin, Blood 4.2 g/dL (3.4-5.0); Albumin/Globulin Ratio 1.1 (0.8-1.8); Alk Phos 84 U/L (50-136); Anion Gap 10 mmol/L (6-16); Aspartate Aminotrans (AST/SGOT 49 U/L (12-37); Bilirubin, Total 0.6 mg/dL (0.1-1.0); Blood Urea Nitrogen 20 mg/dL (8-24); Bun/Creatinine Ratio 21.1 (12.0-20.0); CO2, Blood 25 mmol/L (21-32); Calcium, Blood 9.5 mg/dL (8.5-10.1); Chloride, Blood 102 mmol/L (98-108); Creatinine, Blood 0.95 mg/dL (0.40-1.00); Globulin, Blood 3.9 g/dL (2.2-4.0); Glomerular Filtration Rate >60 (60-); Glucose, Blood 85 mg/dL (70-99); Potassium, Blood 3.6 mmol/L (3.5-5.5); Sodium, Blood 137 mmol/L (136-145); Total Protein, Blood 8.1 g/dL (6.4-8.2); Troponin I 0.261 ng/mL (0.000-0.040)
[2019-01-13 17:51] LABS: Source, Urine Clean Catch
[2019-01-13 18:00] LABS: Appearance, Urine Clear (Clear); Bilirubin, Urine Neg (Neg); Blood, Urine 1+ (Neg); Color, Urine Yellow (P-Yellow); Glucose Qualitative, Urine Neg (Neg); Ketones, Urine 3+ (Neg); Leukocyte Esterase, Urine Neg (Neg); Nitrite, Urine Neg (Neg); Protein, Urine 1+ (Neg); Specific Gravity, Urine 1.025 (1.003-1.022); Urobilinogen, Urine 1+ (Normal)
[2019-01-13 18:11] LABS: International Normalized Ratio 1.53; Prothrombin Time Results 15.6 Sec (9.7-11.5)
[2019-01-13 18:23] LABS: Bacteria Mod /hpf; Red Blood Cells, Urine 0-2 /hpf (0-2); Squamous Epithelial Cells Many /hpf (Few); White Blood Cells, Urine Not Seen /hpf (0-5)
[2019-01-13 18:25] LABS: Mucus Light (0-Heavy)
[2019-01-13] MEDS ORDERED: Norco 5-325 Ta1 EACH PO (19:00)
[2019-01-13] MEDS ORDERED: ONDA4ODT MM (19:00)
== END 2019-01-13 19:45 | disposition home or self-care (01) ==
LOC: ER 16:50
PROVIDERS: Emergency Medicine; Physician Assistant
DX: K04.7 Periapical abscess without sinus (principal); R07.9 Chest pain, unspecified; R11.0 Nausea; Z79.899 Other long term (current) drug therapy; Z88.8 Allergy status to other drugs, medicaments and biological substances; Z88.5 Allergy status to narcotic agent; Z79.82 Long term (current) use of aspirin; Z79.01 Long term (current) use of anticoagulants; I50.9 Heart failure, unspecified
CPT/HCPCS: 36415; 71046; 80053; 81001; 83605; 83690; 83880; 84484; 85025; 85610; 87040; 87086; 93005; 93010; 96361; 96372-59; 96374; 96375; 96376; 99284-25; J0696; J1170; J2405; J7030

== ENCOUNTER 2019-03-17 14:25 | Emergency (ER) | payer MEDICARE, OTHER ==
[~2019-03-17] VITALS: Ht 160 cm; Wt 70.3 kg
[2019-03-17 15:05] LABS: BASOPHILS ABSOLUTE AUTO 0.05 K/mm3 (0.00-0.23); BASOPHILS PERCENT AUTO 1 % (0-2); EOSINOPHILS ABSOLUTE AUTO 0.09 K/mm3 (0.00-0.68); EOSINOPHILS PERCENT AUTO 1 % (0-6); Hematocrit 37.1 % (33.0-51.0); Hemoglobin 12.4 g/dL (11.5-16.0); IMMATURE GRAN ABSOLUTE AUTO 0.03 K/mm3 (0.00-0.10); IMMATURE GRAN PERCENT AUTO 0 % (0-1); LYMPHOCYTES PERCENT AUTO 27 % (21-46); MONOCYTES ABSOLUTE AUTO 1.02 K/mm3 (0.16-1.47); MONOCYTES PERCENT AUTO 11 % (4-13); Mean Corpuscular HGB 29.4 pg (26.0-34.0); Mean Corpuscular HGB Conc 33.4 g/dL (31.5-36.5); Mean Corpuscular Volume 88 fL (80-100); Mean Platelet Volume 9.9 fL (9.1-12.4); NEUTROPHILS ABSOLUTE AUTO 5.56 K/mm3 (1.96-9.15); NEUTROPHILS PERCENT AUTO 60 % (41-73); Platelet Count 299 K/mm3 (150-400); RDW Coefficient Variation 14.6 % (11.7-14.2); Red Blood Cell Count 4.22 M/mm3 (3.80-5.20); White Blood Cell Count 9.25 K/mm3 (4.00-11.30)
[2019-03-17 15:16] LABS: Alanine Aminotransfer (ALT/SGP 38 U/L (12-78); Albumin, Blood 3.9 g/dL (3.4-5.0); Alk Phos 68 U/L (50-136); Anion Gap 7 mmol/L (6-16); Aspartate Aminotrans (AST/SGOT 35 U/L (12-37); Bilirubin, Total 0.3 mg/dL (0.1-1.0); Blood Urea Nitrogen 14 mg/dL (8-24); Bun/Creatinine Ratio 16.5 (12.0-20.0); CO2, Blood 27 mmol/L (21-32); Calcium, Blood 9.2 mg/dL (8.5-10.1); Chloride, Blood 105 mmol/L (98-108); Creatinine, Blood 0.85 mg/dL (0.40-1.00); Globulin, Blood 3.8 g/dL (2.2-4.0); Glomerular Filtration Rate >60 (60-); Glucose, Blood 92 mg/dL (70-99); Potassium, Blood 3.2 mmol/L (3.5-5.5); Sodium, Blood 139 mmol/L (136-145); Total Protein, Blood 7.7 g/dL (6.4-8.2); Troponin I 0.277 ng/mL (0.000-0.040)
[2019-03-17 15:26] LABS: Prothrombin Time Results 48.7 Sec (9.7-11.5)
[2019-03-17 15:28] LABS: International Normalized Ratio 5.35
== END 2019-03-17 18:45 | disposition home or self-care (01) ==
LOC: ER 14:25
PROVIDERS: Emergency Medicine
DX: F41.9 Anxiety disorder, unspecified (principal); R07.89 Other chest pain; E87.6 Hypokalemia; R42 Dizziness and giddiness; R79.1 Abnormal coagulation profile; I25.2 Old myocardial infarction; F43.10 Post-traumatic stress disorder, unspecified; Z88.8 Allergy status to other drugs, medicaments and biological substances; Z88.5 Allergy status to narcotic agent; Z79.899 Other long term (current) drug therapy; Z79.82 Long term (current) use of aspirin; Z79.01 Long term (current) use of anticoagulants
CPT/HCPCS: 36415; 71046; 80053; 83880; 84484; 85025; 85610; 93005; 93010; 99284-25

== ENCOUNTER 2019-07-03 02:01 | Emergency (ER) | payer MEDICARE, OTHER ==
[~2019-07-03] VITALS: Ht 160 cm; Wt 68.5 kg
[2019-07-03] MEDS ORDERED: GABA300 PO (02:41)
[2019-07-03] MEDS ORDERED: EUTHYROX88 MCG PO (02:42)
[2019-07-03] MEDS ORDERED: VENL75ER PO (02:44)
[2019-07-03] MEDS ORDERED: ALDACTONE25 MG PO (02:45)
[2019-07-03] MEDS ORDERED: POTCHL20ER PO (02:46)
[2019-07-03] MEDS ORDERED: WARF5 PO (02:48)
[2019-07-03] MEDS ORDERED: METOPROLOL TART25 MG PO (02:48)
[2019-07-03] MEDS ORDERED: BACL20 PO (02:49)
[2019-07-03 03:14] LABS: BASOPHILS ABSOLUTE AUTO 0.04 K/mm3 (0.00-0.23); BASOPHILS PERCENT AUTO 0 % (0-2); EOSINOPHILS PERCENT AUTO 1 % (0-6); Hematocrit 38.7 % (33.0-51.0); Hemoglobin 13.1 g/dL (11.5-16.0); IMMATURE GRAN ABSOLUTE AUTO 0.04 K/mm3 (0.00-0.10); IMMATURE GRAN PERCENT AUTO 0 % (0-1); LYMPHOCYTES ABSOLUTE AUTO 2.41 K/mm3 (0.84-5.20); LYMPHOCYTES PERCENT AUTO 24 % (21-46); MONOCYTES ABSOLUTE AUTO 0.98 K/mm3 (0.16-1.47); MONOCYTES PERCENT AUTO 10 % (4-13); Mean Corpuscular HGB 29.9 pg (26.0-34.0); Mean Corpuscular HGB Conc 33.9 g/dL (31.5-36.5); Mean Platelet Volume 9.9 fL (9.1-12.4); NEUTROPHILS PERCENT AUTO 65 % (41-73); Platelet Count 264 K/mm3 (150-400); RDW Coefficient Variation 13.8 % (11.7-14.2); RDW Standard Deviation 44.8 fL (35.1-46.3); Red Blood Cell Count 4.38 M/mm3 (3.80-5.20); White Blood Cell Count 10.27 K/mm3 (4.00-11.30)
[2019-07-03 03:17] LABS: Mean Corpuscular Volume 88 fL (80-100)
[2019-07-03 03:28] LABS: International Normalized Ratio 2.11; Prothrombin Time Results 21.6 Sec (9.7-11.5)
[2019-07-03 03:37] LABS: Alanine Aminotransfer (ALT/SGP 32 U/L (12-78); Albumin/Globulin Ratio 1.1 (0.8-1.8); Alk Phos 72 U/L (50-136); Anion Gap 6 mmol/L (6-16); Aspartate Aminotrans (AST/SGOT 25 U/L (12-37); Bilirubin, Total 0.4 mg/dL (0.1-1.0); Blood Urea Nitrogen 16 mg/dL (8-24); Bun/Creatinine Ratio 18.4 (12.0-20.0); CO2, Blood 29 mmol/L (21-32); Chloride, Blood 103 mmol/L (98-108); Creatinine, Blood 0.87 mg/dL (0.40-1.00); Globulin, Blood 3.5 g/dL (2.2-4.0); Glomerular Filtration Rate >60 (60-); Glucose, Blood 102 mg/dL (70-99); Potassium, Blood 3.3 mmol/L (3.5-5.5); Sodium, Blood 138 mmol/L (136-145); Total Protein, Blood 7.5 g/dL (6.4-8.2); Troponin I 0.153 ng/mL (0.000-0.040)
== END 2019-07-03 05:30 | disposition home or self-care (01) ==
LOC: ER 02:01
PROVIDERS: Emergency Medicine
DX: R07.9 Chest pain, unspecified (principal); I25.2 Old myocardial infarction; F32.9 Major depressive disorder, single episode, unspecified; Z86.73 Personal history of transient ischemic attack (TIA), and cerebral infarction without residual deficits; I50.9 Heart failure, unspecified; Z88.8 Allergy status to other drugs, medicaments and biological substances; Z88.5 Allergy status to narcotic agent; Z79.899 Other long term (current) drug therapy; Z79.82 Long term (current) use of aspirin; Z79.01 Long term (current) use of anticoagulants
CPT/HCPCS: 36415; 80053; 84484; 85025; 85610; 93005; 93010; 99285-25

== ENCOUNTER 2019-07-08 01:08 | Inpatient (IN) | payer MEDICARE, OTHER ==
[~2019-07-08] VITALS: Ht 160 cm; Wt 61.4 kg
[~2019-07-08 01:08] MED LIST changes: +BACL20 PO; -Excedrin Extra1 EACH PO; +GABA300 PO; +VENL75ER PO
[2019-07-08 01:30] LABS: BASOPHILS ABSOLUTE AUTO 0.04 K/mm3 (0.00-0.23); BASOPHILS PERCENT AUTO 1 % (0-2); EOSINOPHILS ABSOLUTE AUTO 0.16 K/mm3 (0.00-0.68); EOSINOPHILS PERCENT AUTO 2 % (0-6); Hematocrit 37.8 % (33.0-51.0); Hemoglobin 12.6 g/dL (11.5-16.0); IMMATURE GRAN ABSOLUTE AUTO 0.02 K/mm3 (0.00-0.10); IMMATURE GRAN PERCENT AUTO 0 % (0-1); LYMPHOCYTES ABSOLUTE AUTO 2.17 K/mm3 (0.84-5.20); LYMPHOCYTES PERCENT AUTO 33 % (21-46); MONOCYTES ABSOLUTE AUTO 0.85 K/mm3 (0.16-1.47); MONOCYTES PERCENT AUTO 13 % (4-13); Mean Corpuscular HGB 29.9 pg (26.0-34.0); Mean Corpuscular HGB Conc 33.3 g/dL (31.5-36.5); Mean Corpuscular Volume 90 fL (80-100); NEUTROPHILS ABSOLUTE AUTO 3.35 K/mm3 (1.96-9.15); NEUTROPHILS PERCENT AUTO 51 % (41-73); Platelet Count 241 K/mm3 (150-400); RDW Coefficient Variation 13.8 % (11.7-14.2); RDW Standard Deviation 45.3 fL (35.1-46.3); Red Blood Cell Count 4.22 M/mm3 (3.80-5.20); White Blood Cell Count 6.59 K/mm3 (4.00-11.30)
[2019-07-08 01:31] LABS: Source, Urine Catheter
[2019-07-08 01:35] LABS: Bilirubin, Urine Neg (Neg); Blood, Urine Neg (Neg); Glucose Qualitative, Urine Neg (Neg); Ketones, Urine Neg (Neg); Leukocyte Esterase, Urine Neg (Neg); Nitrite, Urine Neg (Neg); Protein, Urine Neg (Neg); Specific Gravity, Urine 1.015 (1.003-1.022); Urobilinogen, Urine NORM (Normal)
[2019-07-08 01:43] LABS: Appearance, Urine Clear (Clear); Color, Urine Yellow (P-Yellow)
[2019-07-08 01:47] LABS: International Normalized Ratio 1.62; Prothrombin Time Results 16.9 Sec (9.7-11.5)
[2019-07-08 01:49] LABS: U Amphetamine Screen Not Detected; U Barbituate Screen Not Detected; U Benzodiazapine Screen DETECTED; U Buprenorphine Screen Not Detected; U Cannabinoids Screen DETECTED; U Cocaine Screen Not Detected; U Methadone Screen Not Detected; U Methamphetamine Screen Not Detected; U Opiates Screen Not Detected; U Oxycodone Screen Not Detected; U Phencyclidine Screen Not Detected; U Propoxyphene Screen Not Detected
[2019-07-08 01:55] LABS: Acetaminophen, Random <2.0 ug/mL (10.0-30.0); Alanine Aminotransfer (ALT/SGP 26 U/L (12-78); Albumin, Blood 3.4 g/dL (3.4-5.0); Albumin/Globulin Ratio 1.1 (0.8-1.8); Alk Phos 61 U/L (50-136); Anion Gap 7 mmol/L (6-16); Aspartate Aminotrans (AST/SGOT 23 U/L (12-37); Bilirubin, Total 0.2 mg/dL (0.1-1.0); Blood Urea Nitrogen 17 mg/dL (8-24); Bun/Creatinine Ratio 19.1 (12.0-20.0); CO2, Blood 25 mmol/L (21-32); Calcium, Blood 8.3 mg/dL (8.5-10.1); Chloride, Blood 108 mmol/L (98-108); Creatinine, Blood 0.89 mg/dL (0.40-1.00); Ethanol (Alcohol), Blood, Med <3 mg/dL; Free Thyroxine 1.19 ng/dL (0.70-1.60); Glomerular Filtration Rate >60 (60-); Glucose, Blood 71 mg/dL (70-99); Potassium, Blood 3.7 mmol/L (3.5-5.5); Salicylate <1.7 mg/dL (2.8-20.0); Sodium, Blood 140 mmol/L (136-145); Total Protein, Blood 6.4 g/dL (6.4-8.2)
[2019-07-08 01:57] LABS: Thyroid Stimulating Hormone 0.842 uIU/mL (0.360-4.800)
--- NOTE | 2019-07-08 07:15 | NUR ---
PT INTUBATED. NOT FOLLOWING COMMANDS. TOMLIN IN PLACE DRAINING TO GRAVITY. PROPOFOL INFUSING AT 30MCG/KG/MIN, PRECEDEX INFUSING AT 0.2 FOR SEDATION. WILL CONTINUE TO MONITOR.
--- NOTE | 2019-07-08 07:15 | NUR ---
BEGINNING OF SHIFT Assumed care at 0700. Bedside report received from Antonio LAMAS. Pt sedated with 30 mcg/kg/min propofol and 0.2 mcg/kr/hr precedex. Pt responsive to painful stimulus. Mechanically ventilated via 7.5 cm ETT, 23 cm TONY. Ventilator settings AC 16, vT 450, PEEP 5.0, FiO2 45%. SpO2 97%. Lungs clear t/o on auscultation. No sputum noted in in-line suction. 100% atrial paced per heart monitor, rate 60. BP stable. OG tube in place, clamped. Erickson catheter in place for strict measurement of fluid intake and output; clear, yellow urine noted. Pt's father in room, participated in bedside report and then departed shortly afterwards.
--- NOTE | 2019-07-08 08:35 | NUR ---
DR GARCIA IN TO SEE PT Discussed medications that pt reportedly overdosed on. Discussed reported poison control recommendations.
--- NOTE | 2019-07-08 09:19 | NUR ---
SEDATION VACATION Propofol decreased to 15 mcg/kg/min, precedex remained at 0.2 mcg/kg/hr. Pt awoke with verbal stimulus. Opened eyes when instructed to do so. Gripped this RN's fingers when instructed to do so. Propofol increased back to previous rate of 30 mcg/kg/min.
--- NOTE | 2019-07-08 10:41 | NUR ---
[facility] Nurse, Ellyn, called for update. Discussed QRS and QTc. Recommends keeping blood potassium greater than 4 and magnesium greater than 2. Plan to address with Dr Jernigan.
--- NOTE | 2019-07-08 10:46 | NUR ---
DISCUSSED POISON CONTROL RECOMMENDATIONS WITH DR GARCIA New orders provided to check potassium and magnesium. Provider aware of prolonged QTc, which is currently 560 ms.
--- NOTE | 2019-07-08 11:22 | NUR ---
OG TUBE Advanced four inches per orders from Dr Jernigan. Confirmed placement with air injection and auscultation over stomach.
[2019-07-08 11:25] LABS: Magnesium, Blood 2.3 mg/dL (1.6-2.4); Potassium, Blood 3.4 mmol/L (3.5-5.5)
--- NOTE | 2019-07-08 12:32 | NUR ---
DISCUSSED LABS WITH DR GARCIA Orders given for IVPB potassium.
[2019-07-08 13:37] LABS: Hematocrit 37.9 % (33.0-51.0); Hemoglobin 12.4 g/dL (11.5-16.0); Mean Corpuscular HGB 29.5 pg (26.0-34.0); Mean Corpuscular HGB Conc 32.7 g/dL (31.5-36.5); Mean Corpuscular Volume 90 fL (80-100); Mean Platelet Volume 10.1 fL (9.1-12.4); Platelet Count 213 K/mm3 (150-400); RDW Coefficient Variation 14.2 % (11.7-14.2); RDW Standard Deviation 46.7 fL (35.1-46.3); Red Blood Cell Count 4.21 M/mm3 (3.80-5.20); White Blood Cell Count 9.58 K/mm3 (4.00-11.30)
[2019-07-08 13:46] LABS: Alanine Aminotransfer (ALT/SGP 22 U/L (12-78); Albumin, Blood 3.2 g/dL (3.4-5.0); Albumin/Globulin Ratio 1.1 (0.8-1.8); Alk Phos 58 U/L (50-136); Anion Gap 7 mmol/L (6-16); Aspartate Aminotrans (AST/SGOT 22 U/L (12-37); Bilirubin, Total 0.4 mg/dL (0.1-1.0); Blood Urea Nitrogen 14 mg/dL (8-24); CO2, Blood 20 mmol/L (21-32); Calcium, Blood 8.2 mg/dL (8.5-10.1); Chloride, Blood 117 mmol/L (98-108); Creatinine, Blood 0.74 mg/dL (0.40-1.00); Glomerular Filtration Rate >60 (60-); Glucose, Blood 71 mg/dL (70-99); Potassium, Blood 3.4 mmol/L (3.5-5.5); Sodium, Blood 144 mmol/L (136-145); Total Protein, Blood 6.2 g/dL (6.4-8.2)
--- NOTE | 2019-07-08 14:06 | NUR ---
AGITATION / CALL PLACED TO DR GARCIA Pt found sitting in bed, pulling on restraints and kicking in bed. Propofol increased to 40 mcg/kg/min. BP stable. Pt less agitated, but continues to toss head back and forth in bed and pull on restraints. Call placed to Dr Garcia.
--- NOTE | 2019-07-08 17:07 | NUR ---
CALL PLACED TO DR GARCIA Call placed to Dr Garcia to discuss home warfarin and subtherapeutic INR on admit. Per pharmacistGini, pt's target INR is 2.5-3.5. Telephone order given for heparin drip and coumadin.
--- NOTE | 2019-07-08 18:38 | NUR ---
SUMMARY At this time, pt is sedated with 60 mcg/kg/min propofol. Responsive to painful stimulus. Remains on ventilator AC 16/450/5/35%. SpO2 97%. 100% atrial paced. QTc 560 ms. Heparin infusing per pharmacy orders. Warfarin given through OG tube. Pt's father and best friend have visited for very brief periods of time. Will continue to closely monitor until care handoff and bedside report with oncoming RN.
--- NOTE | 2019-07-08 20:44 | NUR ---
INITIAL ASSESSMENT PATIENT INTUBATED AND SEDATED ON PROPOFOL. PATIENT RESPONDS TO PAINFUL STIMULI AND NURSING CARE WITH GRIMACING AND LOCALIZATION OF MOVEMENTS. PATIENT DOES NOT APPEAR TO HAVE ANY PAIN. PATIENT AFEBRILE. PATIENT IN RESTRAINTS TO PREVENT SELF EXTUBATION. PATIENT SATTING 100% ON VENT SETTINGS OF AC 16, TV 450, PEEP 5, AND 35% FIO2. NO SPUTUM BEING SUCTIONED FROM ETT AT THIS TIME. ETT 7.5 AND 23 AT THE LIP. PATIENT 100% ATRIALLY PACED. HR AT 60. SBP 80S TO 1-TEENS. PROPOFOL DECREASED FROM 60 TO 50 MCG/ KG/ MINUTE FOR SOFT BP AT VERY BEGINNING OF SHIFT. CLICK NOTED TO AUSCULTATION. PULSES FAINT TO PALPATION. ABDOMEN SOFT, NONDISTENDED, WITH NORMOACTIVE BS NOTED. DATE OF LAST BM UNKNOWN. HEMORRHOIDS NOTED DURING COMPLETE BED BATH. OG IN PLACE; CLAMPED. TEMP PROBE TOMLIN IN PLACE, DRAINING YELLOW COLORED URINE. SCAR NOTED TO MID CHEST AND LEFT CHEST WALL. HEPARIN INFUSING AT 13 UNITS/ KG/ HOUR. NS TKO. BED LOW, CALL LIGHT IN REACH. FRIEND AT BEDSIDE. WILL CONTINUE TO MONITOR PATIENT FREQUENTLY THROUGHOUT SHIFT.
--- NOTE | 2019-07-09 00:15 | NUR ---
PATIENT REMAINS INTUBATED AND SEDATED. PATIENT REMAINS RESPONDING TO PAINFUL STIMULI/ NURSING CARE. PATIENT AFEBRILE. PATIENT HAS NO SIGNS OF PAIN OR DISCOMFORT. PATIENT DECREASED TO 25% FIO2 AND REMAINS SATTING 90% AND GREATER. PATIENT REMAINS ATRIAL PACED. HR 60. BP STABLE. NO CHANGE IN GI. TOMLIN DRAINING YELLOW/ GREEN COLORED URINE THAT IS CLOUDY WITH SEDIMENT. NO OTHER ACUTE CHANGES TO NOTE ON AT THIS TIME. WILL CONTINUE TO MONITOR.
[2019-07-09 03:40] LABS: BASOPHILS ABSOLUTE AUTO 0.06 K/mm3 (0.00-0.23); BASOPHILS PERCENT AUTO 1 % (0-2); EOSINOPHILS PERCENT AUTO 2 % (0-6); Hematocrit 34.4 % (33.0-51.0); Hemoglobin 11.4 g/dL (11.5-16.0); IMMATURE GRAN ABSOLUTE AUTO 0.04 K/mm3 (0.00-0.10); IMMATURE GRAN PERCENT AUTO 0 % (0-1); LYMPHOCYTES ABSOLUTE AUTO 2.04 K/mm3 (0.84-5.20); LYMPHOCYTES PERCENT AUTO 19 % (21-46); MONOCYTES ABSOLUTE AUTO 1.07 K/mm3 (0.16-1.47); MONOCYTES PERCENT AUTO 10 % (4-13); Mean Corpuscular HGB 29.8 pg (26.0-34.0); Mean Corpuscular HGB Conc 33.1 g/dL (31.5-36.5); Mean Corpuscular Volume 90 fL (80-100); Mean Platelet Volume 10.8 fL (9.1-12.4); NEUTROPHILS ABSOLUTE AUTO 7.63 K/mm3 (1.96-9.15); NEUTROPHILS PERCENT AUTO 69 % (41-73); Platelet Count 186 K/mm3 (150-400); RDW Coefficient Variation 14.6 % (11.7-14.2); RDW Standard Deviation 48.3 fL (35.1-46.3); Red Blood Cell Count 3.83 M/mm3 (3.80-5.20); White Blood Cell Count 11.04 K/mm3 (4.00-11.30)
[2019-07-09 03:54] LABS: International Normalized Ratio 1.85; Prothrombin Time Results 19.1 Sec (9.7-11.5)
--- NOTE | 2019-07-09 04:00 | NUR ---
PATIENT REMAINS INTUBATED AND SEDATED. PATIENT AFEBRILE. NO SIGNS OF PAIN. PATIENT REMAINS ATRIAL PACED. HR 60. BP STABLE. REMAINS SATTING 90% AND GREATER ON SAME VENT SETTINGS. NO ACUTE CHANGES TO NOTE ON. WILL CONTINUE TO MONITOR.
[2019-07-09 04:01] LABS: Alanine Aminotransfer (ALT/SGP 22 U/L (12-78); Albumin/Globulin Ratio 1.1 (0.8-1.8); Alk Phos 58 U/L (50-136); Anion Gap 7 mmol/L (6-16); Aspartate Aminotrans (AST/SGOT 28 U/L (12-37); Bilirubin, Total 0.5 mg/dL (0.1-1.0); Blood Urea Nitrogen 15 mg/dL (8-24); Bun/Creatinine Ratio 19.3 (12.0-20.0); CO2, Blood 20 mmol/L (21-32); Calcium, Blood 7.9 mg/dL (8.5-10.1); Chloride, Blood 114 mmol/L (98-108); Creatinine, Blood 0.78 mg/dL (0.40-1.00); Globulin, Blood 2.8 g/dL (2.2-4.0); Glomerular Filtration Rate >60 (60-); Glucose, Blood 87 mg/dL (70-99); Magnesium, Blood 2.2 mg/dL (1.6-2.4); Phosphorus, Blood 2.3 mg/dL (2.5-4.9); Potassium, Blood 3.6 mmol/L (3.5-5.5); Sodium, Blood 141 mmol/L (136-145); Total Protein, Blood 5.8 g/dL (6.4-8.2)
--- NOTE | 2019-07-09 04:45 | NUR ---
DR. GARCIA CALLED AND INFORMED THAT PATIENT HAS ONLY HAD OUT 175 MLS OF URINE THIS SHIFT. INFORMED THAT PHOSPHORUS LOW AT 2.3. NO ORDERS RECEIVED AT THIS TIME. WILL CONTINUE TO MONITOR.
--- NOTE | 2019-07-09 05:39 | NUR ---
SEDATION VACATION AND WEAN FROM 0440 TO 0520. PATIENT NODDED YES AND NO TO ANSWER QUESTIONS. PATIENT FOLLOWED SOME SIMPLE COMMANDS. PATIENT THEN BECAME AGITATED AND VOMITED. PATIENT IMMEDIATELY SUCTIONED BY RT. PATIENT PLACED BACK ON PROPOFOL AND GIVEN 2 MG IV ATIVAN. PATIENT RESTING QUIETLY AT THIS TIME. WILL CONTINUE TO MONITOR.
--- NOTE | 2019-07-09 06:43 | NUR ---
SHIFT SUMMARY PATIENT REMAINED INTUBATED. PATIENT ON SEDATION UNTIL SEDATION VACATION AND WEAN THIS AM FROM 0440 TO 0520. PATIENT PASSED WEAN AND FOLLOWED SOME SIMPLE COMMANDS BUT BECAME AGITATED AND VOMITED. PATIENT THEN PLACED BACK ON SEDATION AND GIVEN 2 MG IV ATIVAN TO KEEP HER FROM SWINGING HEAD BACK AND FORTH AND GAGGING SELF. PATIENT MOVES ALL EXTREMITIES WELL. PATIENT REMAINED AFEBRILE. PATIENT HAD NO SIGNS OF PAIN. PATIENT REMAINED ON VENTILATOR AND FIO2 ABLE TO BE DECREASED FROM 35% TO 25% DURING SHIFT. LUNGS REMAINED CLEAR IN UPPER LOBES AND DIMINISHED IN LOWER LOBES. PATIENT REMAINED MOSTLY ATRIAL PACED UNTIL END OF SHIFT. HR 60S TO 70S. BP REMAINED STABLE. PATIENT DID NOT HAVE BM THIS SHIFT. OG REMAINED CLAMPED. TOMLIN DRAINED MINIMAL AMOUNT OF YELLOW/ GREEN, CLOUDY URINE WITH SEDIMENT. DR. GARCIA AWARE OF MINIMAL OUTPUT. NO CHANGE TO SKIN. PATIENT REPOSITIONED THROUGHOUT SHIFT. HEPARIN INCREASED FROM 13 TO 15 UNITS/ KG/ HOUR THIS SHIFT. NS TKO. PROPOFOL CURRENTLY INFUSING AT 40 MCG/ KG/ MINUTE. PATIENT RECEIVED COMPLETE BED BATH THIS SHIFT. NO SIGNS OF PAIN NOTED AT THIS TIME. BED LOW, CALL LIGHT IN REACH. REPORT WILL BE GIVEN TO [facility] DAY SHIFT NURSE SHORTLY.
--- NOTE | 2019-07-09 08:00 | NUR ---
BEGINNING OF SHIFT Assumed care at 0700. Bedside report recieved from Brooke LAMAS. Pt on ventilator AC 16/450/5/25%. Receiving 40 mcg/kg/min propofol. Pt agitated, thrashing head back and forth, kicking legs out of bed. Pt pulling on restraints, attempting to reach for ETT. Propofol increased up to 60 mcg/kg/min. Ativan IV push given.
--- NOTE | 2019-07-09 08:20 | NUR ---
DR GARCIA AT BEDSIDE. PROPOFOL OFF. Pt remains agitated. Pt not following commands. Propofol stopped per Dr Garcia. Will continue to reevaluate pt for extubation.
--- NOTE | 2019-07-09 08:55 | NUR ---
UPDATE Pt following commands. Pt agitated. Orders for extubation per Dr Jernigan. RT Avery notified.
--- NOTE | 2019-07-09 09:15 | NUR ---
EXTUBATION Pt remained agitated, kicking legs in bed. Pt began vomiting. OG tube connected to suction. No gastric contents collected in suction cansiter. OG tube removed. Pt extubated at 0905. Placed on 2 LPM NC. SpO2 100%. Pt immediately more calm. Pt's father at bedside during extubation.
--- NOTE | 2019-07-09 09:20 | NUR ---
SUICIDE PRECAUTIONS Speech nonsensical. Pt does not answer questions appropriately, including name and date of . Unable to perform [place]-Suicide Severity Rating Scale Assessment. Pt placed in moderate-risk suicide precautions with remote video monitoring. Room mitigation completed.
--- NOTE | 2019-07-09 09:30 | NUR ---
TACHYCARDIA AND FEVER HR trending up since 0500. Previously paced with HR 60. Currently 105-115, sinus. Discussed current temperature 100.9. No new orders at this time.
--- NOTE | 2019-07-09 10:30 | NUR ---
VEST RESTRAINT APPLIED Pt has not followed any directions from staff since extubation. Pt does not answer questions appropriately. Pt got out of bed, stood up. This RN entered room and attempted to manage cords and lines and redirect pt to bed. Pt continued to not follow directions. Pt standing in place, providing nonsensical speech. After a few seconds, unable to bear own weight and required max assist from three staff to remain standing and move back to bed. Vest restraint applied.
--- NOTE | 2019-07-09 12:00 | NUR ---
SOFT WRIST RESTRAINTS APPLIED Pt continues to attempt to get out of bed. Pt repeatedly pulls on Erickson catheter. Pt has pulled out one IV. Removing monitoring equipment including BP cuff and continuous oximetry. Continues to provide nonsensical speech; does not answer questions appropritely or follow commands.
--- NOTE | 2019-07-09 13:00 | NUR ---
UPDATE GIVEN TO POISON CONTROL CENTER Poison control center called unit for update. Discussed extubation, mentation, and vital signs. Discussed QTc and AM labs. No new recommendations at this time.
--- NOTE | 2019-07-09 13:45 | NUR ---
DR GARCIA AT BEDSIDE Agitation discussed. Inquired about starting IV fluids for patient. New orders entered by provider.
--- NOTE | 2019-07-09 14:45 | NUR ---
PRECEDEX STARTED Pt remains in vest restraint and soft wrist restraints. Pt is not following commands or answering questions appropriately. Pt calling out with nonsensical speech. Kicking and pulling on restraints. Sitting up in bed, trying to get out of bed. Precedex started.
--- NOTE | 2019-07-09 19:25 | NUR ---
SUMMARY Pt extubated today and has been on room air with SpO2 90% or greater. Pt rarely answers questions appropriately. Provided correct name and month/day of once. Stated source of pain once (Erickson catheter removed as pt stated it as source of discomfort). Otherwise, has not answered questions appropriately, therefore unable to perform [place]-Suicide Severity Rating Scale Reassessment. Since extubation, pt has been in moderate risk suicide precautions per orders from Dr Hilario. After extubation, pt required restraint due to confusion and risk for falls, additionally pt was pulling at cords/lines/tubes. Pt has had agitation that did not resolve with ativan administration and was started on precedex drip. Precedex currently at 0.2 mcg/kg/hr at this time. Pt has had visitors for brief periods of time throughout the day. Bedside report given to oncoming RNAdam.
--- NOTE | 2019-07-09 20:30 | NUR ---
SUICIDE SEVERITY- PT UNABLE TO ANSWER SUICIDE PRECAUTION QUESTIONS. PT CURRENTLY IN BILATERAL WRIST RESTRAINTS, MERCEEDS VEST, ON CAMERA MONITORING, ROOM MITIGATED FOR SAFETY, DOOR/CURTAIN OPEN. PT PLACED "MODERATE RISK" PER DAYSHIFT HOSPITALIST. WILL CONTINUE TO MONITOR AND REASSESS PT BETTER ABLE TO ANSWER QUESTIONS.
--- NOTE | 2019-07-09 21:23 | NUR ---
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 PT ALERT TO SELF, PT VERBALLY RESPONDS NONSENSICAL WITH OCCASIONAL CONFUSED WORDS. PT PULLING ON IV'S, PULLED OUT OF SOFT RESTRAINTS ATTEMPTING TO UNSAFELY AMBULATE . PT PLACED IN TAT AND MEDICATED PER EMAR. PT MODERATE SUICIDE RISK PER DAYSHIFT HOSPITALIST, ROOM MITIGATED, PT ON CAMERA MONITORING, CURTAIN DOOR REMAIN OPEN. BILATERAL UPPER TAT AND MERCEDES VEST REMAIN IN PLACE. PT ATRIAL PACED, HR:60. OCCASIONALLY HYPOTENSIVE, WILL MONITOR AND TITRATE SEDATING MEDICATIONS NEEDED. PT CURRENTLY ON PRECEDEX 0.04 MCG/KG/HR. HEPARIN @13 U/KG/HR. LR@75 ML/HR. SEE FULL SHIFT ASSESSMENT.
[2019-07-10 04:52] LABS: BASOPHILS ABSOLUTE AUTO 0.03 K/mm3 (0.00-0.23); BASOPHILS PERCENT AUTO 0 % (0-2); EOSINOPHILS PERCENT AUTO 3 % (0-6); Hematocrit 31.9 % (33.0-51.0); Hemoglobin 10.5 g/dL (11.5-16.0); IMMATURE GRAN ABSOLUTE AUTO 0.03 K/mm3 (0.00-0.10); IMMATURE GRAN PERCENT AUTO 0 % (0-1); LYMPHOCYTES ABSOLUTE AUTO 1.53 K/mm3 (0.84-5.20); LYMPHOCYTES PERCENT AUTO 21 % (21-46); MONOCYTES PERCENT AUTO 10 % (4-13); Mean Corpuscular HGB 29.8 pg (26.0-34.0); Mean Corpuscular HGB Conc 32.9 g/dL (31.5-36.5); Mean Corpuscular Volume 91 fL (80-100); Mean Platelet Volume 10.2 fL (9.1-12.4); NEUTROPHILS ABSOLUTE AUTO 4.71 K/mm3 (1.96-9.15); NEUTROPHILS PERCENT AUTO 65 % (41-73); Platelet Count 179 K/mm3 (150-400); RDW Coefficient Variation 14.3 % (11.7-14.2); RDW Standard Deviation 47.8 fL (35.1-46.3); Red Blood Cell Count 3.52 M/mm3 (3.80-5.20)
[2019-07-10 05:07] LABS: International Normalized Ratio 1.65; Prothrombin Time Results 17.2 Sec (9.7-11.5)
[2019-07-10 05:12] LABS: Alanine Aminotransfer (ALT/SGP 18 U/L (12-78); Albumin, Blood 2.9 g/dL (3.4-5.0); Albumin/Globulin Ratio 0.9 (0.8-1.8); Alk Phos 55 U/L (50-136); Anion Gap 5 mmol/L (6-16); Aspartate Aminotrans (AST/SGOT 19 U/L (12-37); Bilirubin, Total 0.6 mg/dL (0.1-1.0); Blood Urea Nitrogen 12 mg/dL (8-24); Bun/Creatinine Ratio 15.7 (12.0-20.0); CO2, Blood 24 mmol/L (21-32); Calcium, Blood 8.1 mg/dL (8.5-10.1); Chloride, Blood 113 mmol/L (98-108); Creatinine, Blood 0.76 mg/dL (0.40-1.00); Globulin, Blood 3.1 g/dL (2.2-4.0); Glomerular Filtration Rate >60 (60-); Glucose, Blood 84 mg/dL (70-99); Magnesium, Blood 2.2 mg/dL (1.6-2.4); Phosphorus, Blood 3.2 mg/dL (2.5-4.9); Potassium, Blood 3.5 mmol/L (3.5-5.5); Sodium, Blood 142 mmol/L (136-145)
--- NOTE | 2019-07-10 06:42 | NUR ---
SHIFT SUMMARY PT PLACED IN 4PT TOUGH CUFFS AT 0000 ALONG WITH MERCEDES VEST D/T PT CONTINUING TO ATTEMPT UNSAFE AMBULATION, KICKING LEGS AND BED. PT SCREAMS FOR "CLARICE" AND SAYS THAT SHE WILL "KILL" NURSING STAFF OR THAT SHE WILL HAVE "CLARICE DO IT". PT REORIENTED AND TOLD THAT CLARICE WILL RETURN IN MORNING. PT NOT CONSOLABLE CONTINUING TO SCREAM AND CUSS. PRECEDEX REMAINS AT 0.3 MCG/KG/HR. UNABLE TO TITRATE HIGHER D/T PT BECOMING HYPOTENSIVE. ADMINISTERING ATIVAN NEEDED. PT DOES NOT ANSWER QUESTIONS OR PARTICIPATE IN CARE. PT OFTEN MUMBLES NONSENSE AND APPEARS CONFUSED. WILL REPORT TO DAYSHIFT NURSE.
--- NOTE | 2019-07-10 08:00 | NUR ---
SHIFT ASSESMENT PT AGGITATED, DOES NOT FOLLOW COMMANDS OR REDIRECT, YELLING AND VERBALLY ABUSIVE TO STAFF BUT REMAINS ON PDEX QTT AND WILL WEAN TOLERATED. PRNS PER MD ORDER. VSS, AFEBRILE, PACED AT TIMES AND MECH VALVE AUDIBLE. HEPARIN QTT PER MD/RX. RA WITH SATS WNL AND NO S/S OF RESP DISTRESS. MASK IN PLACE R/T HIGH RISK OF SPITTING ON STAFF. FOUR POINT LOCKED RESTRAINTS IN PLACE AND VEST TO ASSURE PT REMAINS SAFE, ASSESMENT PER PROTOCOL. NPO, NO BM. INCONTINENT OF URINE AND CHANGED PRN. SKIN INTACT. WILL CONT TO MONITOR
--- NOTE | 2019-07-10 11:13 | NUR ---
uNABLE TO ENGAGE [id number] FOR SAFETY PLANNING. PT INCOHENT TALKING. IS IN RESTRAINTS WITH MASK ON FAce due to spitting . wILL ATTENPT PLAN AT ANOTHER TIME IF PATIENT STABILIZES AND IS ABLE TO ENGAGE IN DIRECTED CONVERSATION.
--- NOTE | 2019-07-10 12:00 | NUR ---
PT UPDATE PT REMAINS AGGITATED,WITH FREQ OUTBURSTS TO STAFF AND FATHER. DOES NOT FOLLOW COMMANDS OR REDIRECT, YELLING AND VERBALLY ABUSIVE TO STAFF BUT REMAINS ON PDEX QTT AND WILL WEAN TOLERATED. PRNS PER MD ORDER. VSS, AFEBRILE, HEPARIN QTT OFF AND CONVERTED TO LOVENOX.COUMADIN RA WITH SATS WNL AND NO S/S OF RESP DISTRESS. MASK IN PLACE R/T HIGH RISK OF SPITTING ON STAFF. FOUR POINT LOCKED RESTRAINTS IN PLACE AND VEST TO ASSURE PT REMAINS SAFE, ASSESMENT PER PROTOCOL. NPO, NO BM. INCONTINENT OF URINE AND CHANGED PRN. SKIN INTACT. WILL CONT TO MONITOR
--- NOTE | 2019-07-10 22:44 | NUR ---
PT REFUSING TO ANSWER SUICIDE QUESTIONS, PT MADE MODERATE RISK PER PHYSICIAN. CAMERA MONITORING ON, BUE/BLE TAT AND MERCEDES RESTRAINT IN PLACE, CURTAIN/DOOR OPEN
--- NOTE | 2019-07-10 23:14 | NUR ---
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 PT IN 4PT TAT WITH MERCEDES RESTRAINTS. PT YELLING AND ATTEMPTING TO SPIT ON STAFF. PT VERBALLY ABUSIVE AND THREATENING PULLING VIOLENTLY ON RESTRAINTS AND ATTEMPTING TO KICK/HIT BED. PT REFUSING TO ANSWER QUESTIONS REGARDING SUICIDE ATTEMPT/IDEATION, MEDICAL HISTORY, AND REFUSING TO COOPERATE WITH CARE. PRECEDEX ON @ 0.6MCG/KG/HR, ZYPREXA IM PRN. ROOM MITITGATED, PT ON CAMERA MONITORING, DOOR/CURTAIN OPEN. VSS. SEE FULL SHIFT ASSESSMENT.
--- NOTE | 2019-07-10 23:58 | NUR ---
PT REMOVED FROM RESTRAINTS ONE AT AT TIME, ROM PERFORMED. LOTION APPLIED TO EXTREMETIES. LEGS AND SHOULDERS MASSAGED FOR PT COMFORT.
--- NOTE | 2019-07-11 00:06 | NUR ---
UNABLE TO SAFELY REPOSITION PATIENT TO ANY POSITION BUT SUPINE. PT ATTEMPTING TO CHEW ON HER IV TUBING. PT BOOSTED, ROM PERFORMED.
--- NOTE | 2019-07-11 01:24 | NUR ---
PT AWAKE AN AGITATED, SCREAMING/THREATENING STAFF. LEG RESTRAINTS REMOVED TO PERFORM ROM, PT REMOVED ATTENDS, SPREAD HER LEGS OPEN AND SCREAMED "LOOK AT THIS, IS THIS WHAT YOU WANT TO SEE". PT STATES SHE WOULD RATHER "JUMP OFF BRIDGE IN [place] THAN BE HERE", PT STATES "DAD AND CLARICE ARE LIARS, I NEVER TRIED TO KILL MYSELF", PT DEMANDING TO BE RELEASED FROM HOSPITAL, REMINDED PT WHY SHE WAS AT [facility] AND ENCOURAGED HER TO TALK WITH MENTAL HEALTH PHYSICIAN WHEN AVAILABLE. PT CONTINUES TO BE UNCOOPERATIVE WITH CARE, NO ATTENDS IN PLACE PT REMOVED AND IS TOO AGITATED TO ALLOW CARE.
--- NOTE | 2019-07-11 02:30 | NUR ---
CALL FROM MONITORING, PT ATTEMPTING TO GET OUT OF MERCEDES AND RESTRAINTS. PT REPOSITIONED, MERCEDES ADJUSTED. PT SCREAMING AT STAFF ATTEMPTING TO SPIT.
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
--- NOTE | 2019-07-11 08:00 | NUR ---
INITIAL ASSESSMENT PATIENT ALERT AND ORIENTED TO SELF, FAMILY, AND FOLLOWING DIRECTIONS, WHEN SHE WANTS TO. PATIENT REFUSING SUICIDAL IDEATION. PATIENT REFUSING THAT SHE IS IN THE HOSPITAL. PATIENT LABILE, ANGRY AND DEFENSIVE AT TIMES, COOPERATIVE AND POLITE AT OTHERS. PATIENT WEAK BUT ABLE TO MOVE ALL EXTREMITIES. PATIENT AFEBRILE. PATIENT HAS NO COMPLAINTS OF PAIN AT THIS TIME. PATIENT IN RESTRAINTS TO PROTECT LINES AND CORDS. RESP WNL. PATIENT ATRIAL PACED, HR 59 TO 60. CLICK HEARD ON AUSCULTATION. BP STABLE. HEMORRHOIDS NOTED. NO BM SINCE ADMITTED NOTED. ATTENDS IN PLACE FOR INCONTINENCE- URINE FOUL SMELLING AND YELLOW IN COLOR. SCAR TO MIDLINE CHEST AND LEFT CHEST WALL. PRECEDEX INFUSING AT 0.7 MCG/ KG/ HOUR. LR TKO. BED LOW, CALL LIGHT IN REACH. WILL CONTINUE TO MONITOR PATIENT FREQUENTLY THROUGHOUT SHIFT.
--- NOTE | 2019-07-11 09:00 | NUR ---
PATIENT IV INFILTRATED SHORT TIME AGO WITH NS INFUSING WO. IVS FLUSHED AND PATENT UPON ADMINISTERING MEDS. FAMILY CAME TO VISIT AND INFORMED STAFF OF ARM LOOKING BIG AND BLUE 10 MINUTES AFTER NURSE LEFT ROOM. CHARGE NURSE, PRIMARY NURSE AND ANOTHER RN IN ROOM TO ASSESS. PATIENT FINGERS BLUE/ BLACK. PULSES DOPPLER. CAP REFILL LESS THAN 3 SECONDS. ARM SWOLLEN AND TIGHT. IVS STOPPED AND REMOVED. ARM ELEVATED AND WARM BLANKET WRAPPED AROUND. LESS THAN A MINUTE LATER FINGERS PINK AGAIN. ARM AND HAND REMAINS SWOLLEN AND TIGHT. CAP REFILL REMAINS LESS THAN 3 SECONDS AND FAINT PULSE PALPABLE. DR. BROWNLEE CALLED AND STATED HE WOULD BE IN TO PLACE CENTRAL LINE SBP IN THE 60S. DR. BROWNLEE IN ROOM TO SEE ARM AND HAND. WAS GOING TO PLACE CENTRAL LINE BUT DECIDED TO HAVE PICC RN PLACE PICC INSTEAD. AWARE OF LOW BPS. PATIENT'S BROTHER, SAYRA, CALLED AND INFORMED OF PATIENT'S BP AND NEED FOR A LINE FOR BP MEDS. PATIENT'S BROTHER AGREED TO EITHER PICC OR CENTRAL LINE. 0910: PICC RN IN ROOM AT THIS TIME, SETTING UP FOR PLACEMENT. PATIENT REMAINS RESPONDING TO VERBAL STIMULI. L ARM AND HAND REMAIN WITH 1 + PULSE AND GOOD CAP REFILL. SWELLING HAS COME DOWN SOME BUT REMAINS SWOLLEN AND TIGHT.
--- NOTE | 2019-07-11 10:37 | NUR ---
PATIENT'S FATHER IN TO SEE HER. UPDATED ON PATIENT CONDITION. INFORMED THAT DR. REA WILL BE IN TO SEE PATIENT TODAY.
--- NOTE | 2019-07-11 10:47 | NUR ---
POISON CONTROL AND ASKED FOR UPDATE. UPDATED ON PATIENT CONDITION.
--- NOTE | 2019-07-11 12:40 | NUR ---
PATIENT PLACED ON [address] DEMPSEY. PATIENT WANTING TO LEAVE AND IS NOT SAFE TO DO SO AT THIS TIME. MIDDLEKAUFF TO STILL SEE PATIENT TODAY.
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
--- NOTE | 2019-07-11 16:00 | NUR ---
PATIENT REMAINS CONFUSED AND DELIRIOUS. PATIENT CONTINUES NOT TO BELIEVE THAT WE ARE IN THE HOSPITAL AND CONTINUES TO BELIEVE THAT WE ARE SOMEWHERE ELSE OTHER THAN WHERE WE WERE THIS AM. PATIENT REMAINS AFEBILE. PATIENT ATRIAL PACED AND SR. HR 59 TO 70S. BP REMAINS STABLE. BED LOW, CALL LIGHT IN REACH. WILL CONTINUE TO MONITOR.
--- NOTE | 2019-07-11 17:15 | NUR ---
PATIENT VERY AGITATED AND ANGRY WITH STAFF. PATIENT ATTEMPTING TO CRAWL OUT OF BED WHEN RESTRAINTS TAKEN OFF TO CHANGE HER ATTENDS. PATIENT STATES SHE WANTS TO GO TO BATHROOM. PATIENT INFORMED THAT SHE IS UNABLE TO USE THE TOILET AT THIS TIME SHE IS ON SEDATING MEDICATIONS AND IS NOT COOPERATIVE ENOUGH AT THIS TIME TO BE SAFE TO USE THE TOILET. PATIENT BECAME EVEN MORE DISTRAUGHT, CURSING AT STAFF, KICKING BED AND GRABBING AT LINES AND CORDS. MORE STAFF CALLED INTO ROOM TO HELP. PATIENT REPOSITIONED AND PLACED BACK IN RESTRAINTS. FATHER AT BEDSIDE THE WHOLE TIME. FATHER HAS BEEN IN 2 TIMES TODAY AND IT SEEMS LIKE PATIENT REALLY EXCALATES WHEN HE IS HERE.
--- NOTE | 2019-07-11 17:38 | NUR ---
DR. BATISTAUFF IN ROOM TO SEE PATIENT AND SPEAK WITH HER FATHER, DANA, THAT IS IN THE ROOM WELL.
--- NOTE | 2019-07-11 19:30 | NUR ---
SHIFT SUMMARY PATIENT REMAINED LABILE; COOPERATIVE WITH PLEASE AND THANK YOUS AT TIMES AND ANGRY, AGGRESSIVE, VERBALLY ABUSIVE. PATIENT ONLY ORIENTED TO SELF, DAD AND FRIEND, AND FOLLOWING DIRECTIONS WHEN WANTS TO. PATIENT CONTINUED TO STATE THAT SHE DID NOT TAKE ANY EXTRA MEDICATIONS AND WAS NOT TRYING TO HURT SELF. PATIENT DELIRIOUS STATING THAT SHE WAS NOT IN THE HOSPITAL. THIS AFTERNOON, PATIENT STATED THAT SHE WAS NOT IN THE SAME PLACE SHE WAS IN THE AM. RESTRAINTS TAKEN OFF OF BLES PATIENT WAS COOPERATIVE AT THE TIME. PATIENT EARNED FEET RESTRAINTS BACK SHORT TIME AFTER WHEN STARTED KICKING BED, TRYING TO CRAWL OUT OF BED. PATIENT REMAINED AFEBRILE. PATIENT REMAINED SATTING 90% AND GREATER ON RA. PATIENT REMAINED IN SR TO ATRIAL PACED, HR 59 TO 70S. BP REMAINED STABLE. NO BM THIS SHIFT. PATIENT OFFERED LUNCH AND DINNER BUT BECAME VERY ESCALATED EACH TIME SO DID NOT EAT. ATTENDS CHANGED SEVERAL TIMES. URINE REMAINED YELLOW WITH FOUL ODOR. NO CHANGE TO SKIN. PATIENT REPOSITIONED THROUGHOUT SHIFT AND WAS ALSO REPOSITIONING AND SCOOTING SELF AROUND IN BED QUITE A LOT. PRECEDEX REMAINS INFUSING AT 1.0 MCG/ MINUTE AND NS TKO. FATHER IN TO VISIT 2X TODAY. ÁLVARO SAW PATIENT WHILE FATHER HERE. LYNNEUFF CHANGED UP PATIENT MEDICATIONS. REPORT GIVEN TO ASSUMING CITY CONTROLLER NURSE.
--- NOTE | 2019-07-11 19:56 | NUR ---
PT PLACED ON 2-MD HOLD. REFUSING TO ANSWER SUICIDE SEVERITY ASSESSMENT QUESTIONS. PT ON CAMERA MONITORING. 4PT TAT AND MERCEDES RESTRAINTS. BED IN LOW LOCKED POSITION, CURTAIN/DOOR OPEN.
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
--- NOTE | 2019-07-12 02:06 | NUR ---
ORDNANCE KEEPER AND THIS NURSE ATTEMPTED TO PERFORM ROM AND ORAL CARE. PT REFUSED TO OPEN MOUTH, CHAPSTICK APPLIED TO LIPS. LEGS TAKEN OUT OF RESTRAINTS TEMPORARILY TO PERFORM ROM, PT BEGAN ADJUSTING HER LOWER BODY ATTEMPTING TO PULL SHEETS OFF AND ATTENDS. ATTEMPTED TO VERBALLY REDIRECT. PT PLACED BACK IN LEG RESTRAINTS FOR PT AND STAFF SAFETY. PT REQUESTING A LARGER BED WITH MORE COMFORTABLE PILLOWS. PT UNSUCCESSFULLY REORIENTED. PT CONTINUES TO YELL.
--- NOTE | 2019-07-12 03:59 | NUR ---
PT REPORTS THAT HER MOTHER IS "AT HOME COMMITTING SUICIDE WITH THE OVEN", PT REORIENTED UNSUCCESSFULLY. PT BELIEVES SHE IS AT HOME, PT REPORTS THAT SHE IS GOING TO "KILL HER PARENTS" AND THAT SHE IS GOING TO SEND "CLARICE" TO "KILL THIS NURSE".
--- NOTE | 2019-07-12 04:13 | NUR ---
PERFORMED ORAL CARE, GIVEN MOUTH MOISTURIZER AND A DRINK OF WATER. PT REFUSING TO SWALLOW WATER AND THEN SPIT IT ACROSS THE BED TRYING TO HIT MEDICAL STAFF.
[2019-07-12 04:23] LABS: International Normalized Ratio 2.76; Prothrombin Time Results 27.9 Sec (9.7-11.5)
--- NOTE | 2019-07-12 06:13 | NUR ---
SHIFT SUMMARY PT REMAINS IN 4PT TAT WITH MERCEDES. PT MEDICATED PER EMAR WITH LITTLE RELIEF FROM PSYCHOLOGICAL SYMPTOMS. PT CONTINUES TO YELL AND PULL AT RESTRAINTS. ATTEMPTS TO LOOSEN OR REMOVE RESTRAINTS UNSUCCESSFUL PT IMMEDIATELY ATTEMPTS TO GET OUT OF BED, PULL IV'S OUT AND PULL ATTENDS OFF. PT OFTEN REFUSES TO PARTICIPATE OR ALLOW CARE, PT SPIT WATER OUT AND CONTINUES TO YELL VERBAL THREATS AT STAFF. PLEASE SEE MULTIPLE PREVIOUS NOTES FROM THIS SHIFT. WILL REPORT TO DAYSHIFT NURSE.
--- NOTE | 2019-07-12 07:15 | NUR ---
BEGINNING OF SHIFT Assumed care at 0700. Bedside report received from Adam LAMAS. Pt on room air. Paced per heart monitor. Pt on 1.4 mcg/kg/hr. Responsive to verbal stimulus. Does not answer questions or follow commands. Pt in vest restraint and TAT cuffs to all extremities.
--- NOTE | 2019-07-12 08:17 | NUR ---
DR DEMPSEY IN TO SEE PT Discussed plan of care. No new orders at this time.
--- NOTE | 2019-07-12 12:00 | NUR ---
DR BROWNLEE IN TO SEE PT Precedex at 1.4 mcg/kg/hr. Provider states to give ordered haldol, turn precedex off. At this time, pt in TAT x 4 extremities and vest restraint.
--- NOTE | 2019-07-12 16:00 | NUR ---
DR BATISTAUFF IN TO SEE PT Update given to provider. At this time, pt is sitting up in recliner, free of restratints. Pt is A&O x 4. Answering questions appropriately and verbalizing needs. Pt got up to shower and brushed teeth. Requesting raisin bran to eat.
--- NOTE | 2019-07-12 16:01 | NUR ---
CALL PLACED TO DR DEMPSEY Notified provider of pt's progress. Pt is requesting tylenol, stating she has a headache. Pt is also requesting "something for a cough". Pt has a dry, nonproductive cough.
--- NOTE | 2019-07-12 17:47 | NUR ---
SUMMARY At this time, pt is A&O x 4. Pt follows commands and verbalizes needs. Pt has been up in recliner since 1500. Pt compliant with fall risk precautions and utilizes call light to notify staff when she needs assistance. Pt was not alert enough to eat breakfast tray. Pt ate about 35% of lunch but had nausea and vomiting afterwards. Pt refused dinner tray at this time but stated she may want her dinner later. Dr Rosales, Dr Hilario, and Dr Forrester updated on pt progress this shift. Pt to remain in ICU overnight per Dr Forrester. Pt's father in to see pt this afternoon. When asked if pt knows why she is in the hospital, pt states "They told me I passed out and I was on a breathing machine for a few days- but I don't remember the breathing machine." This RN told pt that she had overdosed on her medications, pt stated "I did not take more than I was supposed to. I was filling my medication containers for when I travel". Pt states she had no intentions of killing herself.
--- NOTE | 2019-07-12 22:30 | NUR ---
ASSUMED PT CARE AT 1915 BEDSIDE REPORT GIVEN BY CYDNEY STOREY. PT LYING IN BED SLEEPING. VSS. PT IS SALINE LOCKED. REMAINS ON SUICIDE PRECAUTIONS, WELL A TWO MD HOLD. PT'S FATHER CALLED FOR AN UPDATE. CALL LIGHT WITHIN REACH; PT ABLE TO MAKE HER BASIC NEEDS KNOWN.
[2019-07-13 03:30] LABS: Hematocrit 39.7 % (33.0-51.0); Hemoglobin 13.4 g/dL (11.5-16.0); Mean Corpuscular HGB 29.7 pg (26.0-34.0); Mean Corpuscular HGB Conc 33.8 g/dL (31.5-36.5); Platelet Count 280 K/mm3 (150-400); RDW Coefficient Variation 13.8 % (11.7-14.2); RDW Standard Deviation 44.3 fL (35.1-46.3); Red Blood Cell Count 4.51 M/mm3 (3.80-5.20); White Blood Cell Count 7.26 K/mm3 (4.00-11.30)
[2019-07-13 03:31] LABS: Mean Corpuscular Volume 88 fL (80-100)
[2019-07-13 03:48] LABS: Anion Gap 10 mmol/L (6-16); Blood Urea Nitrogen 9 mg/dL (8-24); CO2, Blood 20 mmol/L (21-32); Calcium, Blood 9.4 mg/dL (8.5-10.1); Chloride, Blood 111 mmol/L (98-108); Creatinine, Blood 0.82 mg/dL (0.40-1.00); Glomerular Filtration Rate >60 (60-); Glucose, Blood 94 mg/dL (70-99); Potassium, Blood 3.9 mmol/L (3.5-5.5); Sodium, Blood 141 mmol/L (136-145)
[2019-07-13 03:54] LABS: Prothrombin Time Results 45.1 Sec (9.7-11.5)
[2019-07-13 03:59] LABS: International Normalized Ratio 4.59
--- NOTE | 2019-07-13 04:26 | NUR ---
END OF SHIFT SUMMARY PT HAS SLEPT MOST OF SHIFT. WOKE UP ONCE WITH AN EPISODE OF VOMITING. BROWN LIQUID WITH SMALL CHUNKS NOTED TO EMESIS. PT HASN'T EATEN ANYTHING ON THIS SHIFT. LINEN CHANGE PERFORMED. PT ASSISTED ONE PERSON TO BEDSIDE COMMODE. ORAL CARE PERFORMED. PT ASSISTED BACK TO BED; EMESIS BAG NEAR BY. MEDICATED WITH ZOFRAN PER ORDERS. PT REMAINS ON CAMERA D/T MODERATE SUICIDE PRECAUTIONS. PRECEDEX GTT REMAINS OFF. RESTRAINTS HAVE REMAINED OFF ALL SHIFT. PT HAS BEEN PLEASANT AND COOPERATIVE WITH CARES; OCCASIONALLY LABILE WITH MOOD WHERE SHE WILL ASK TO BE LEFT ALONE. APPEARS WITHDRAWN. DENIES ANY SUICIDAL IDEATION AT THIS TIME. WILL CONTINUE TO MONITOR UNTIL REPORT IS HANDED OFF TO ONCOMING RN.
--- NOTE | 2019-07-13 06:33 | NUR ---
REPORT GIVEN TO CORBIN. CALLED PT'S DAD, DANA, TO INFORM HIM OF THE ROOM TRANSFER.
--- NOTE | 2019-07-13 09:17 | NUR ---
attempted Safety Plan. Pt reports has headache and needs to rest. She said "I already have one with my counselor". Further questioning results were "[facility]". Informed pt I would come back later to update our plan with her. Involuntary status MD Hold begun 07-11-19. Patricia Rainey M.Ed., [facility]-c
[2019-07-13] MEDS ORDERED: DIAZ5 PO (10:10)
[2019-07-13] MEDS ORDERED: CYCL10 PO (10:31)
--- NOTE | 2019-07-13 13:50 | NUR ---
ADVISED PATIENT HAS BEEN HAVING NAUSEA AND DISLIKES SANDWICHES WHICH IS ABOUT ONLY THING ON SOFT, FINGER FOODS. ASKED TO CHANGE TO BRAT DIET. ALSO C/O HEARTBURN AND HAS TAKEN TUMS OR PEPCID IN PAST. OK FOR DIET CHANGE AND PEPCID 20 MG NOW AND BID.
--- NOTE | 2019-07-13 17:44 | NUR ---
REVIEW D'C INSTRUCTIONS. AWARE TO F/U W/[facility] AND HAS APPT FOR 07/20 AND AWARE CAN CALL IF NEEDS TO. AWARE [facility] WILL CALL HER FOR F/U. STS CLOTHES-DARK BRA, BLACK SHIRT(W/ROSI PRINTED ON IT) AND BLACK SWEATER W/HER MEDS CAME IN W/HER. PER PHARMACY, NO MEDS THERE. PER ICU THEY DO NOT HAVE CLOTHES OR MEDS. NOTIFIED [facility] AND THEY ARE ALSO CHECKING.PATIENT REQUEST HER MEDS OF ALDACTONE, METOPROLOL AND THYROID HAS NOT HAD THEM. AWAITING E.R RESPONSE, THEN WILL D'C.
--- NOTE | 2019-07-13 18:05 | NUR ---
PATIENT DOES NOT WISH TO WAIT FOR E.R. TO CALL BACK. STS "MAYBE MY DAD TOOK EVERYTHING HOME." IN W/C W/BRASS BURNISHER AND ADULT MALE TO POV.
[2019-07-14] MEDS ORDERED: VENLAFAXINE HCL75 M1 PO (16:02)
[2019-07-23] MEDS ORDERED: TORSE20 PO (18:41)
[2019-07-23] MEDS ORDERED: EUTHYROX88 MCG PO (18:42)
[2019-07-23] MEDS ORDERED: ALDACTONE25 MG PO (18:42)
[2019-07-23] MEDS ORDERED: POTA10T PO (18:43)
[2019-07-23] MEDS ORDERED: WARF5 PO ×2 (18:43→18:44)
[2019-07-23] MEDS ORDERED: LEVOCETIRIZINE D5 MG PO (18:44)
[2019-07-23] MEDS ORDERED: METOPROLOL TART25 MG PO (18:44)
[2019-07-23] MEDS ORDERED: Celexa10 MG PO (18:45)
[2019-07-23] MEDS ORDERED: OMEP20ER PO (18:47)
[2019-07-23] MEDS ORDERED: MELATONIN5 M1 PO (18:47)
[2019-07-23] MEDS ORDERED: AZELASTINE137 MCG/0. (18:48)
[2019-07-23] MEDS ORDERED: DESVENLAFAXINE25 MG PO (18:49)
[2019-07-23] MEDS ORDERED: Lamotrigine25 MG PO (18:50)
[2019-07-23] MEDS ORDERED: Excedrin Extra1 EACH PO (19:14)
[2019-07-23] MEDS ORDERED: ONDA4ODT SL (19:53)
== END 2019-07-13 18:01 | disposition home or self-care (01) | DRG 917 ==
LOC: ER 01:08 → ICUW 01:09 → MEDS 07-13 06:53
PROVIDERS: Emergency Medicine; Internal Medicine; Internal Medicine Critical Care Medicine; ADMIT Internal Medicine
PROC: 0BH17EZ Insertion of Endotracheal Airway into Trachea, Via Natural or Artificial Opening (ICD-10-PCS; principal; 2019-07-09)
PROC: 5A1935Z Respiratory Ventilation, Less than 24 Consecutive Hours (ICD-10-PCS; 2019-07-09)
DX: T42.72XA Poisoning by unspecified antiepileptic and sedative-hypnotic drugs, intentional self-harm, initial encounter (principal); G92 Toxic encephalopathy; J96.00 Acute respiratory failure, unspecified whether with hypoxia or hypercapnia; F31.81 Bipolar II disorder; F33.2 Major depressive disorder, recurrent severe without psychotic features; Z95.2 Presence of prosthetic heart valve; I25.2 Old myocardial infarction; Z79.01 Long term (current) use of anticoagulants; I95.9 Hypotension, unspecified; E03.9 Hypothyroidism, unspecified; G62.9 Polyneuropathy, unspecified; Z86.73 Personal history of transient ischemic attack (TIA), and cerebral infarction without residual deficits; Z95.0 Presence of cardiac pacemaker; I50.9 Heart failure, unspecified; Z78.1 Physical restraint status; B37.9 Candidiasis, unspecified
CPT/HCPCS: 31500; 31720; 36415; 51702; 71045; 80048; 80053; 81003; 81025; 82947; 83605; 83735; 84100; 84132; 84439; 84443; 85025; 85027; 85610; 85730; 93005; 93010; 94002; 94003; 96361; 96361-59; 96372; 96374-59; 96375; 96376; 97110; 97161; 99291-25; 99292; A9270-GY; C1751; G0378; G0480; J1630; J1644; J1650; J2060; J2405; J2704; J3010; J3480; J7030; J7120

== ENCOUNTER 2019-07-14 14:19 | Observation (INO) | payer MEDICARE, OTHER ==
[~2019-07-14] VITALS: Ht 160 cm; Wt 67.0 kg
[~2019-07-14 14:19] MED LIST changes: +ALDACTONE25 MG PO; +DIAZ5 PO; +EUTHYROX88 MCG PO; +Excedrin Extra1 EACH PO; +METOPROLOL TART25 MG PO
[2019-07-14 14:58] LABS: BASOPHILS ABSOLUTE AUTO 0.06 K/mm3 (0.00-0.23); BASOPHILS PERCENT AUTO 1 % (0-2); EOSINOPHILS ABSOLUTE AUTO 0.14 K/mm3 (0.00-0.68); EOSINOPHILS PERCENT AUTO 2 % (0-6); Hematocrit 47.7 % (33.0-51.0); Hemoglobin 15.7 g/dL (11.5-16.0); IMMATURE GRAN ABSOLUTE AUTO 0.05 K/mm3 (0.00-0.10); IMMATURE GRAN PERCENT AUTO 1 % (0-1); LYMPHOCYTES ABSOLUTE AUTO 1.86 K/mm3 (0.84-5.20); LYMPHOCYTES PERCENT AUTO 28 % (21-46); MONOCYTES ABSOLUTE AUTO 0.76 K/mm3 (0.16-1.47); MONOCYTES PERCENT AUTO 11 % (4-13); Mean Corpuscular HGB 29.4 pg (26.0-34.0); Mean Corpuscular HGB Conc 32.9 g/dL (31.5-36.5); Mean Corpuscular Volume 89 fL (80-100); Mean Platelet Volume 9.9 fL (9.1-12.4); NEUTROPHILS ABSOLUTE AUTO 3.84 K/mm3 (1.96-9.15); NEUTROPHILS PERCENT AUTO 57 % (41-73); Platelet Count 344 K/mm3 (150-400); RDW Coefficient Variation 14.4 % (11.7-14.2); RDW Standard Deviation 46.6 fL (35.1-46.3); Red Blood Cell Count 5.34 M/mm3 (3.80-5.20); White Blood Cell Count 6.71 K/mm3 (4.00-11.30)
[2019-07-14 15:15] LABS: Alanine Aminotransfer (ALT/SGP 45 U/L (12-78); Albumin, Blood 4.4 g/dL (3.4-5.0); Alk Phos 98 U/L (50-136); Anion Gap 8 mmol/L (6-16); Aspartate Aminotrans (AST/SGOT 54 U/L (12-37); Bilirubin, Total 0.4 mg/dL (0.1-1.0); Blood Urea Nitrogen 7 mg/dL (8-24); Bun/Creatinine Ratio 8.1 (12.0-20.0); CO2, Blood 28 mmol/L (21-32); Calcium, Blood 10.3 mg/dL (8.5-10.1); Chloride, Blood 105 mmol/L (98-108); Creatinine, Blood 0.86 mg/dL (0.40-1.00); Globulin, Blood 4.5 g/dL (2.2-4.0); Glomerular Filtration Rate >60 (60-); Glucose, Blood 99 mg/dL (70-99); Potassium, Blood 3.6 mmol/L (3.5-5.5); Sodium, Blood 141 mmol/L (136-145); Total Protein, Blood 8.9 g/dL (6.4-8.2); Troponin I 0.427 ng/mL (0.000-0.040)
[2019-07-14] MEDS ORDERED: VENLAFAXINE HCL75 M1 PO (16:02)
[2019-07-14] MEDS ORDERED: POTA10T PO (16:03)
[2019-07-14] MEDS ORDERED: LEVOCETIRIZINE D5 MG PO (16:04)
[2019-07-14 16:09] LABS: International Normalized Ratio 2.25
--- NOTE | 2019-07-14 18:54 | NUR ---
1725 RECEIVED PT TO RM 329 VIA W/C FROM ER. RECEIVED REPORT FROM LIZ LAMAS. PT TO ER WITH C/O CP, HAVING EXTENSIVE CARDIAC HX; SEE CHART. TROPONIN SLIGHTLY ELEVATED; SEE CHART. PT TO BE OBS FOR REPEAT TROPONINS. NO C/O CP TO PRESENT SINCE ADMIT. PT DID C/O "HRT BURN". DR ABEL NOTIFIED. PT STARTED ON PRILOSEC. PT ALSO REQUESTED OTHER HOME MEDICATIONS; SEE CHART. INDEPENDENT IN RM, BUT REPORTED BEING DIZZY; BED ALARM PLACED. PT A&O, ABLE TO MAKE NEEDS KNOWN. REPORTING TO KALYANI LAMAS.
[2019-07-14 22:59] LABS: U Amphetamine Screen Not Detected; U Barbituate Screen Not Detected; U Benzodiazapine Screen DETECTED; U Buprenorphine Screen Not Detected; U Cannabinoids Screen Not Detected; U Cocaine Screen Not Detected; U Methadone Screen Not Detected; U Methamphetamine Screen Not Detected; U Opiates Screen Not Detected; U Oxycodone Screen Not Detected; U Propoxyphene Screen Not Detected
[2019-07-14 23:34] LABS: Source, Urine Clean Catch
[2019-07-14 23:40] LABS: Bilirubin, Urine Neg (Neg); Blood, Urine Neg (Neg); Glucose Qualitative, Urine Neg (Neg); Ketones, Urine Neg (Neg); Leukocyte Esterase, Urine Neg (Neg); Nitrite, Urine Neg (Neg); Protein, Urine Neg (Neg); Specific Gravity, Urine 1.015 (1.003-1.022); Urobilinogen, Urine NORM (Normal)
[2019-07-14 23:42] LABS: Appearance, Urine Clear (Clear); Color, Urine Yellow (P-Yellow)
--- NOTE | 2019-07-15 01:41 | NUR ---
CALL TO MD PT C/O BACK PAIN & NAUSEA, WORRIED D/T LAST SD PRESENTING THIS WAY- CALLED DR ARELLANO AND REC EKG ORDER, VS ASSESSED, PHENERGAN ADMIN, PT RESTING, WILL CONT TO MONITOR
[2019-07-15 03:04] LABS: International Normalized Ratio 2.08; Prothrombin Time Results 21.4 Sec (9.7-11.5)
--- NOTE | 2019-07-15 05:02 | NUR ---
SHIFT SUMMARY PT HAS HAD NO ACUTE CHANGES THIS SHIFT, MEDICATED 1X FOR C/O HEAD, SHOULDER & NECK PAIN, 2X FOR NAUSEA- ZOFRAN 1ST WAS NOT EFFECTIVE, THEN ADMIN PHENERGAN; PT STATED HER SX FELT SIMILAR TO PREVIOUS ME, CONSULTED MD, COMPLETED EKG (NO CHANGE) & VS ASSESSED. PT AWAKE T/O MOST OF SHIFT, BEDRESTING AT THIS TIME, WILL CONT TO ASSESS UNTIL REPORT GIVEN TO DAY RN.
[2019-07-15 08:10] LABS: Albumin, Blood 4.1 g/dL (3.4-5.0); Anion Gap 10 mmol/L (6-16); Blood Urea Nitrogen 8 mg/dL (8-24); Bun/Creatinine Ratio 10.2 (12.0-20.0); CO2, Blood 26 mmol/L (21-32); Calcium, Blood 10.5 mg/dL (8.5-10.1); Chloride, Blood 102 mmol/L (98-108); Creatinine, Blood 0.79 mg/dL (0.40-1.00); Glomerular Filtration Rate >60 (60-); Glucose, Blood 94 mg/dL (70-99); Phosphorus, Blood 5.3 mg/dL (2.5-4.9); Potassium, Blood 3.2 mmol/L (3.5-5.5); Sodium, Blood 138 mmol/L (136-145)
--- NOTE | 2019-07-15 16:16 | NUR ---
ECHOCARDIOGRAM COMPLETED
--- NOTE | 2019-07-15 18:35 | NUR ---
SHE HAS NOT NAPPED ANY TODAY AND IS WORRIED ABOUT HAVING ANOTHER SLEEPLESS NIGHT AHEAD. SHE HAS BEEN MEDICATED TODAY FOR A H/A, GAS, AND HEARTBURN. AND ROUNDED ON HER TOGETHER AFTER SHE TALKED WITH ABOUT HER RECENT SUICIDE ATTEMPT. SHE SAYS SHE EVEN REMEMBERS FEELING DEPRESSED A YOUNG CHILD. TELE NSR. NO CP. 1 LITER OF IVF'S ORDERED BUT SHE REFUSED ANYMORE AFTER 60% OF IT INFUSED. I TURNED IT OFF WHEN SHE INSISTED. SHE FELT HER HAND LOOKED PUFFY AND FELT HER ABD WAS BLOATING. VSS. SHE SAYS SHE MIGHT DISCHARGE TOMORROW.
--- NOTE | 2019-07-16 04:36 | NUR ---
SHIFT SUMMARY PT HAS HAD NO ACUTE CHANGES THIS SHIFT, GAVE MELATONIN FOR SLEEP BUT PT STATES SHE WAS UNABLE TO FALL ASLEEP, DID CHECK ON PT A FEW TIMES THAT SHE APPEARED TO BE SLEEPING, PT AMBULATED IN HALLWAY INDEP 2X DURING SHIFT, BEDRESTING AT THIS TIME, WILL CONT TO MONITOR UNTIL REPORT GIVEN TO DAY RN.
[2019-07-16 05:51] LABS: International Normalized Ratio 2.41; Prothrombin Time Results 24.5 Sec (9.7-11.5)
[2019-07-16 06:38] LABS: Anion Gap 9 mmol/L (6-16); Blood Urea Nitrogen 12 mg/dL (8-24); Bun/Creatinine Ratio 14.3 (12.0-20.0); CO2, Blood 25 mmol/L (21-32); Calcium, Blood 9.3 mg/dL (8.5-10.1); Chloride, Blood 103 mmol/L (98-108); Creatinine, Blood 0.84 mg/dL (0.40-1.00); Glomerular Filtration Rate >60 (60-); Glucose, Blood 94 mg/dL (70-99); Phosphorus, Blood 3.5 mg/dL (2.5-4.9); Potassium, Blood 3.5 mmol/L (3.5-5.5); Sodium, Blood 137 mmol/L (136-145)
[2019-07-16] MEDS ORDERED: WARF5 PO (08:58)
[2019-07-16] MEDS ORDERED: MELATONIN5 M1 PO (09:00)
[2019-07-16] MEDS ORDERED: Celexa10 MG PO (09:00)
[2019-07-16] MEDS ORDERED: OMEP20ER PO (09:01)
--- NOTE | 2019-07-16 10:46 | NUR ---
SHE DISCHARGED HOME AT 0930 WITH BELONGINGS AND INSTRUCTIONS. HER SISTER PICKED HER UP. SHE HAD A SHORT NAP BEFORE BREAKFAST. SHE WAS SO HAPPY TO GET SOME SLEEP. SHE SAID SHE FELT VERY READY TO GO HOME, FEELING "SO MUCH BETTER" THAN WHEN SHE CAME IN. SHE WANTS TO TAKE 10 MG CELEXA INSTEAD OF 20. 10 MG IS WHAT IS ORDERED FOR HOME. SHE SAID SHE WON'T TAKE THE PRILOSEC AT HOME. SHE HAS AN APPT. THIS WEEK ALREADY WITH . NO COMPLAINTS. NO TELE EVENTS. VSS.
== END 2019-07-16 09:25 | disposition home or self-care (01) ==
LOC: ER 14:19 → MEDS 14:20
PROVIDERS: Physician Assistant; ADMIT Family Medicine
DX: R07.9 Chest pain, unspecified (principal); E06.3 Autoimmune thyroiditis; F41.9 Anxiety disorder, unspecified; R06.02 Shortness of breath; F43.10 Post-traumatic stress disorder, unspecified; E87.6 Hypokalemia; I50.30 Unspecified diastolic (congestive) heart failure; E83.52 Hypercalcemia; Z86.73 Personal history of transient ischemic attack (TIA), and cerebral infarction without residual deficits; Z95.2 Presence of prosthetic heart valve; Z79.01 Long term (current) use of anticoagulants; Z98.890 Other specified postprocedural states; Z95.810 Presence of automatic (implantable) cardiac defibrillator; Z79.899 Other long term (current) drug therapy; Z88.8 Allergy status to other drugs, medicaments and biological substances; Z88.5 Allergy status to narcotic agent
CPT/HCPCS: 36415; 71046; 80053; 80069; 81003; 82306; 83880; 83970; 84484; 85025; 85379; 85610; 93005; 93010; 93306; 96361; 96374; 96375; 96376; 97110; 97161; 99285-25; A9270; A9270-GY; G0378; J2405; J2550; J7030

== ENCOUNTER 2019-07-26 03:32 | Emergency (ER) | payer MEDICARE, OTHER ==
[~2019-07-26] VITALS: Ht 160 cm; Wt 63.5 kg
[~2019-07-26 03:32] MED LIST changes: +AZELASTINE137 MCG/0.; +Celexa10 MG PO; +DESVENLAFAXINE25 MG PO; +LEVOCETIRIZINE D5 MG PO; +Lamotrigine25 MG PO; +MELATONIN5 M1 PO; +OMEP20ER PO; +ONDA4ODT SL; +VENLAFAXINE HCL75 M1 PO
[2019-07-26 03:46] LABS: BASOPHILS ABSOLUTE AUTO 0.05 K/mm3 (0.00-0.23); BASOPHILS PERCENT AUTO 1 % (0-2); EOSINOPHILS ABSOLUTE AUTO 0.16 K/mm3 (0.00-0.68); EOSINOPHILS PERCENT AUTO 2 % (0-6); Hematocrit 34.4 % (33.0-51.0); Hemoglobin 11.5 g/dL (11.5-16.0); IMMATURE GRAN ABSOLUTE AUTO 0.05 K/mm3 (0.00-0.10); IMMATURE GRAN PERCENT AUTO 1 % (0-1); LYMPHOCYTES ABSOLUTE AUTO 3.06 K/mm3 (0.84-5.20); LYMPHOCYTES PERCENT AUTO 32 % (21-46); MONOCYTES ABSOLUTE AUTO 1.07 K/mm3 (0.16-1.47); MONOCYTES PERCENT AUTO 11 % (4-13); Mean Corpuscular HGB 30.2 pg (26.0-34.0); Mean Corpuscular HGB Conc 33.4 g/dL (31.5-36.5); Mean Corpuscular Volume 90 fL (80-100); Mean Platelet Volume 10.2 fL (9.1-12.4); NEUTROPHILS ABSOLUTE AUTO 5.19 K/mm3 (1.96-9.15); NEUTROPHILS PERCENT AUTO 54 % (41-73); Platelet Count 311 K/mm3 (150-400); RDW Coefficient Variation 14.5 % (11.7-14.2); RDW Standard Deviation 47.8 fL (35.1-46.3); Red Blood Cell Count 3.81 M/mm3 (3.80-5.20); White Blood Cell Count 9.58 K/mm3 (4.00-11.30)
[2019-07-26 04:04] LABS: International Normalized Ratio 1.73; Prothrombin Time Results 17.9 Sec (9.7-11.5)
[2019-07-26 04:08] LABS: Alanine Aminotransfer (ALT/SGP 39 U/L (12-78); Albumin, Blood 3.4 g/dL (3.4-5.0); Albumin/Globulin Ratio 1.1 (0.8-1.8); Alk Phos 77 U/L (50-136); Anion Gap 5 mmol/L (6-16); Aspartate Aminotrans (AST/SGOT 36 U/L (12-37); Bilirubin, Total 0.2 mg/dL (0.1-1.0); Blood Urea Nitrogen 21 mg/dL (8-24); Bun/Creatinine Ratio 22.5 (12.0-20.0); CO2, Blood 30 mmol/L (21-32); Calcium, Blood 8.3 mg/dL (8.5-10.1); Chloride, Blood 106 mmol/L (98-108); Creatinine, Blood 0.93 mg/dL (0.40-1.00); Glomerular Filtration Rate >60 (60-); Glucose, Blood 109 mg/dL (70-99); Potassium, Blood 3.5 mmol/L (3.5-5.5); Sodium, Blood 141 mmol/L (136-145); Total Protein, Blood 6.4 g/dL (6.4-8.2)
== END 2019-07-26 05:10 | disposition home or self-care (01) ==
LOC: ER 03:32
PROVIDERS: Emergency Medicine
DX: R53.1 Weakness (principal); Z88.8 Allergy status to other drugs, medicaments and biological substances; Z88.5 Allergy status to narcotic agent; Z79.899 Other long term (current) drug therapy; Z79.01 Long term (current) use of anticoagulants; I25.2 Old myocardial infarction; I50.9 Heart failure, unspecified
CPT/HCPCS: 36415; 71045; 80053; 83880; 84484; 85025; 85610; 93005; 93010; 96374; 99284-25; J2405

== ENCOUNTER 2019-07-29 00:29 | Emergency (ER) | payer MEDICARE, OTHER ==
[~2019-07-29] VITALS: Ht 160 cm; Wt 61.2 kg
== END 2019-07-29 01:15 | disposition home or self-care (01) ==
LOC: ER 00:29
DX: F32.9 Major depressive disorder, single episode, unspecified (principal); R45.1 Restlessness and agitation; E06.3 Autoimmune thyroiditis; I25.2 Old myocardial infarction; F43.10 Post-traumatic stress disorder, unspecified; I50.9 Heart failure, unspecified; I42.2 Other hypertrophic cardiomyopathy; Z88.6 Allergy status to analgesic agent; Z88.8 Allergy status to other drugs, medicaments and biological substances; Z79.01 Long term (current) use of anticoagulants; Z79.899 Other long term (current) drug therapy; Z79.82 Long term (current) use of aspirin; Z86.73 Personal history of transient ischemic attack (TIA), and cerebral infarction without residual deficits
CPT/HCPCS: 99284

== ENCOUNTER 2019-07-30 01:33 | Emergency (ER) | payer MEDICARE, OTHER ==
[~2019-07-30] VITALS: Ht 160 cm; Wt 68.0 kg
== END 2019-07-30 02:04 | disposition home or self-care (01) ==
LOC: ER 01:33
DX: F32.9 Major depressive disorder, single episode, unspecified (principal); F41.9 Anxiety disorder, unspecified; R45.1 Restlessness and agitation; F98.9 Unspecified behavioral and emotional disorders with onset usually occurring in childhood and adolescence; I25.2 Old myocardial infarction; I50.9 Heart failure, unspecified; E06.3 Autoimmune thyroiditis; I42.2 Other hypertrophic cardiomyopathy; F90.9 Attention-deficit hyperactivity disorder, unspecified type; Z88.6 Allergy status to analgesic agent; Z88.8 Allergy status to other drugs, medicaments and biological substances; Z79.01 Long term (current) use of anticoagulants; Z79.899 Other long term (current) drug therapy; Z86.73 Personal history of transient ischemic attack (TIA), and cerebral infarction without residual deficits; Z79.82 Long term (current) use of aspirin
CPT/HCPCS: 99284

== ENCOUNTER → 2019-07-30 | Outpatient (CLI) | payer MEDICARE, OTHER ==
[2019-08-02 01:10] LABS: CHLAMYDIA TRACHOMATIS, NAA Negative (Negative); NEISSERIA GONORRHOEAE, NAA Negative (Negative)
== END | disposition home or self-care (01) ==
LOC: LAB 16:54 → LAB SHORT 16:54
PROVIDERS: Nurse Practitioner
DX: Z72.51 High risk heterosexual behavior (principal)
CPT/HCPCS: 87491; 87591

== ENCOUNTER 2019-08-06 04:02 | Emergency (ER) | payer MEDICARE, OTHER ==
[~2019-08-06] VITALS: Ht 160 cm; Wt 69.8 kg
== END 2019-08-06 05:33 | disposition home or self-care (01) ==
LOC: ER 04:02
DX: R45.1 Restlessness and agitation (principal); I42.2 Other hypertrophic cardiomyopathy; I25.2 Old myocardial infarction; I50.9 Heart failure, unspecified; F32.9 Major depressive disorder, single episode, unspecified; F43.10 Post-traumatic stress disorder, unspecified; Z86.73 Personal history of transient ischemic attack (TIA), and cerebral infarction without residual deficits; F41.9 Anxiety disorder, unspecified; Z79.01 Long term (current) use of anticoagulants; Z79.82 Long term (current) use of aspirin; Z79.899 Other long term (current) drug therapy; Z88.6 Allergy status to analgesic agent; Z88.8 Allergy status to other drugs, medicaments and biological substances
CPT/HCPCS: 99285

== ENCOUNTER → 2019-08-18 | Outpatient (CLI) | payer MEDICARE, OTHER | END | disposition home or self-care (01) | LOC: LAB 19:52 → LAB SHORT 19:52 | DX: J02.9 Acute pharyngitis, unspecified (principal) | CPT/HCPCS: 87081 ==

== ENCOUNTER 2019-08-30 10:06 | Emergency (ER) | payer MEDICARE, OTHER ==
[~2019-08-30] VITALS: Ht 160 cm; Wt 67.6 kg
[2019-08-30] MEDS ORDERED: DESV50 PO (10:51)
[2019-08-30] MEDS ORDERED: DIAZ5 PO (10:52)
[2019-08-30] MEDS ORDERED: HYDHCL25 PO (10:52)
[2019-08-30] MEDS ORDERED: ACET325 PO (10:52)
== END 2019-08-30 11:15 | disposition home or self-care (01) ==
LOC: ER 10:06
DX: F41.9 Anxiety disorder, unspecified (principal); F32.9 Major depressive disorder, single episode, unspecified; I42.9 Cardiomyopathy, unspecified; I25.2 Old myocardial infarction; I50.9 Heart failure, unspecified; F43.10 Post-traumatic stress disorder, unspecified; Z88.8 Allergy status to other drugs, medicaments and biological substances; Z88.5 Allergy status to narcotic agent; Z79.899 Other long term (current) drug therapy; Z79.01 Long term (current) use of anticoagulants; Z86.73 Personal history of transient ischemic attack (TIA), and cerebral infarction without residual deficits
CPT/HCPCS: 99284

== ENCOUNTER → 2019-09-22 | Outpatient (CLI) | payer MEDICARE, OTHER ==
[~2019-09-22] MED LIST changes: +ACET325 PO; +DESV50 PO; +HYDHCL25 PO
[2019-09-25 19:34] LABS: Adenovirus F 40/41 Not Detected (NOT DETECT); Astrovirus Not Detected (NOT DETECT); Campylobacter Sp Not Detected (NOT DETECT); Cryptosporidium Not Detected (NOT DETECT); Cyclospora Cayetanensis Not Detected (NOT DETECT); E. Coli O157 Not Detected (NOT DETECT); Entamoeba Histolytica Not Detected (NOT DETECT); Enteroaggregative E. coli-EAEC Not Detected (NOT DETECT); Enteropathogenic E. coli-EPEC Not Detected (NOT DETECT); Enterotoxigenic E. coli-ETEC Not Detected (NOT DETECT); Giardia Lamblia Not Detected (NOT DETECT); Norovirus GI/GII Not Detected (NOT DETECT); Plesiomonas Shigelloides Not Detected (NOT DETECT); Rotavirus A Not Detected (NOT DETECT); Salmonella Sp Not Detected (NOT DETECT); Sapovirus Not Detected (NOT DETECT); Shiga Toxin-prod E. coli-STEC Not Detected (NOT DETECT); Shigella/Enteroin E. coli-EIEC Not Detected (NOT DETECT); Vibrio Cholerae Not Detected (NOT DETECT); Vibrio Sp Not Detected (NOT DETECT); Yersinia Enterocolitica Not Detected (NOT DETECT)
== END | disposition home or self-care (01) ==
LOC: LAB SHORT 17:16 → LAB 17:16
PROVIDERS: Family Medicine
DX: K52.9 Noninfective gastroenteritis and colitis, unspecified (principal)
CPT/HCPCS: 0097U; 89055

== ENCOUNTER 2019-10-10 16:54 | Emergency (ER) | payer OTHER, MEDICARE ==
[~2019-10-10] VITALS: Ht 160 cm; Wt 68.0 kg
== END 2019-10-10 20:56 | disposition home or self-care (01) ==
LOC: ER 16:54
DX: T76.21XA Adult sexual abuse, suspected, initial encounter (principal); H61.23 Impacted cerumen, bilateral; R00.2 Palpitations; I25.2 Old myocardial infarction; I50.9 Heart failure, unspecified; F41.9 Anxiety disorder, unspecified; F32.9 Major depressive disorder, single episode, unspecified; Z88.8 Allergy status to other drugs, medicaments and biological substances; Z88.5 Allergy status to narcotic agent; Z79.899 Other long term (current) drug therapy; Z79.82 Long term (current) use of aspirin; Z79.01 Long term (current) use of anticoagulants; Z86.73 Personal history of transient ischemic attack (TIA), and cerebral infarction without residual deficits
CPT/HCPCS: 93005; 93010

== ENCOUNTER 2019-10-12 07:13 | Emergency (ER) | payer MEDICARE, OTHER ==
[~2019-10-12] VITALS: Ht 160 cm; Wt 72.6 kg
[2019-10-12 08:03] LABS: BASOPHILS ABSOLUTE AUTO 0.08 K/mm3 (0.00-0.23); BASOPHILS PERCENT AUTO 1 % (0-2); EOSINOPHILS PERCENT AUTO 3 % (0-6); Hematocrit 37.3 % (33.0-51.0); Hemoglobin 12.2 g/dL (11.5-16.0); IMMATURE GRAN ABSOLUTE AUTO 0.04 K/mm3 (0.00-0.10); IMMATURE GRAN PERCENT AUTO 1 % (0-1); LYMPHOCYTES ABSOLUTE AUTO 2.12 K/mm3 (0.84-5.20); LYMPHOCYTES PERCENT AUTO 30 % (21-46); MONOCYTES ABSOLUTE AUTO 0.98 K/mm3 (0.16-1.47); MONOCYTES PERCENT AUTO 14 % (4-13); Mean Corpuscular HGB 30.1 pg (26.0-34.0); Mean Corpuscular HGB Conc 32.7 g/dL (31.5-36.5); Mean Corpuscular Volume 92 fL (80-100); Mean Platelet Volume 10.6 fL (9.1-12.4); NEUTROPHILS ABSOLUTE AUTO 3.58 K/mm3 (1.96-9.15); NEUTROPHILS PERCENT AUTO 51 % (41-73); Platelet Count 246 K/mm3 (150-400); RDW Coefficient Variation 14.1 % (11.7-14.2); RDW Standard Deviation 47.4 fL (35.1-46.3); Red Blood Cell Count 4.05 M/mm3 (3.80-5.20)
[2019-10-12 08:23] LABS: Alanine Aminotransfer (ALT/SGP 50 U/L (12-78); Albumin, Blood 3.9 g/dL (3.4-5.0); Alk Phos 82 U/L (50-136); Anion Gap 6 mmol/L (6-16); Aspartate Aminotrans (AST/SGOT 62 U/L (12-37); Bilirubin, Total 0.3 mg/dL (0.1-1.0); Blood Urea Nitrogen 14 mg/dL (8-24); Bun/Creatinine Ratio 14.2 (12.0-20.0); CO2, Blood 30 mmol/L (21-32); Calcium, Blood 9.1 mg/dL (8.5-10.1); Chloride, Blood 103 mmol/L (98-108); Creatinine, Blood 0.98 mg/dL (0.40-1.00); Globulin, Blood 3.9 g/dL (2.2-4.0); Glomerular Filtration Rate >60 (60-); Glucose, Blood 78 mg/dL (70-99); Potassium, Blood 3.5 mmol/L (3.5-5.5); Sodium, Blood 139 mmol/L (136-145); Total Protein, Blood 7.8 g/dL (6.4-8.2)
[2019-10-12 08:44] LABS: Source, Urine Clean Catch
[2019-10-12 08:59] LABS: Bilirubin, Urine Neg (Neg); Blood, Urine Neg (Neg); Glucose Qualitative, Urine Neg (Neg); Ketones, Urine Neg (Neg); Leukocyte Esterase, Urine Neg (Neg); Nitrite, Urine Neg (Neg); Protein, Urine Neg (Neg); Specific Gravity, Urine 1.005 (1.003-1.022); Urobilinogen, Urine NORM (Normal)
[2019-10-12 09:14] LABS: Appearance, Urine Clear (Clear); Color, Urine Yellow (P-Yellow)
== END 2019-10-12 10:44 | disposition home or self-care (01) ==
LOC: ER 07:13
PROVIDERS: Emergency Medicine
DX: R07.9 Chest pain, unspecified (principal); R00.2 Palpitations; R19.7 Diarrhea, unspecified; I25.2 Old myocardial infarction; I50.9 Heart failure, unspecified; F32.9 Major depressive disorder, single episode, unspecified; F41.9 Anxiety disorder, unspecified; E03.9 Hypothyroidism, unspecified; I48.91 Unspecified atrial fibrillation; Z88.8 Allergy status to other drugs, medicaments and biological substances; Z79.899 Other long term (current) drug therapy; Z79.82 Long term (current) use of aspirin; Z79.01 Long term (current) use of anticoagulants; Z86.73 Personal history of transient ischemic attack (TIA), and cerebral infarction without residual deficits
CPT/HCPCS: 36415; 71046; 80053; 81003; 83880; 84484; 85025; 93005; 93010; 96374; 99285-25; J2060

== ENCOUNTER → 2020-02-15 | Outpatient (CLI) | payer OTHER ==
[2020-02-15 20:32] LABS: Candida species (DNA Probe) Negative (NEGATIVE); G. vaginalis (DNA Probe) Positive (NEGATIVE); T. vaginalis (DNA Probe) Negative (NEGATIVE)
== END | disposition home or self-care (01) ==
LOC: LAB SHORT 17:43 → LAB 17:43
PROVIDERS: Nurse Practitioner
DX: N76.0 Acute vaginitis (principal)
CPT/HCPCS: 87480; 87510; 87660

== ENCOUNTER → 2020-02-21 | Outpatient (CLI) | payer OTHER ==
[2020-02-22 14:10] LABS: ADENOVIRUS F 40/41 Not Detected (Not Detected); ASTROVIRUS Not Detected (Not Detected); C DIFFICILE TOXIN A/B Not Detected (Not Detected); CAMPYLOBACTER Not Detected (Not Detected); CRYPTOSPORIDIUM Not Detected (Not Detected); CYCLOSPORA CAYETANENSIS Not Detected (Not Detected); ENTAMOEBA HISTOLYTICA Not Detected (Not Detected); ENTEROAGGREGATIVE E COLI Not Detected (Not Detected); ENTEROPATHOGENIC E COLI Not Detected (Not Detected); ENTEROTOXIGENIC E COLI Not Detected (Not Detected); GIARDIA LAMBLIA Not Detected (Not Detected); NOROVIRUS GI/GII Not Detected (Not Detected); PLESIOMONAS SHIGELLOIDES Not Detected (Not Detected); ROTAVIRUS A Not Detected (Not Detected); SALMONELLA Not Detected (Not Detected); SAPOVIRUS Not Detected (Not Detected); SHIGA-TOXIN-PRODUCING E COLI Not Detected (Not Detected); SHIGELLA/ENTEROINVASIVE E COLI Not Detected (Not Detected); VIBRIO Not Detected (Not Detected); VIBRIO CHOLERAE Not Detected (Not Detected); YERSINIA ENTEROCOLITICA Not Detected (Not Detected)
== END | disposition home or self-care (01) ==
LOC: LAB 16:51 → LAB SHORT 16:51
PROVIDERS: Nurse Practitioner
DX: K52.9 Noninfective gastroenteritis and colitis, unspecified (principal)
CPT/HCPCS: 0097U

== ENCOUNTER → 2020-04-03 | Outpatient (CLI) | payer OTHER ==
[2020-04-04 11:06] LABS: Candida species (DNA Probe) Negative (NEGATIVE); G. vaginalis (DNA Probe) Positive (NEGATIVE); T. vaginalis (DNA Probe) Negative (NEGATIVE)
[2020-04-05 05:10] LABS: CHLAMYDIA TRACHOMATIS, NAA Negative (Negative); NEISSERIA GONORRHOEAE, NAA Negative (Negative)
== END | disposition home or self-care (01) ==
LOC: LAB 17:15 → LAB SHORT 17:15
PROVIDERS: Advanced Practice Midwife
DX: Z11.3 Encounter for screening for infections with a predominantly sexual mode of transmission (principal); N76.0 Acute vaginitis
CPT/HCPCS: 87480; 87491; 87510; 87591; 87660

== ENCOUNTER 2020-04-06 19:29 | Emergency (ER) | payer OTHER ==
[~2020-04-06] VITALS: Ht 160 cm; Wt 73.5 kg
== END 2020-04-06 21:05 | disposition home or self-care (01) ==
LOC: ER 19:29
DX: J11.1 Influenza due to unidentified influenza virus with other respiratory manifestations (principal); Z20.828 Contact with and (suspected) exposure to other viral communicable diseases; Z79.899 Other long term (current) drug therapy; Z79.52 Long term (current) use of systemic steroids; Z88.5 Allergy status to narcotic agent; Z88.8 Allergy status to other drugs, medicaments and biological substances
CPT/HCPCS: 99283; U0003

== ENCOUNTER → 2020-05-10 | Outpatient (CLI) | payer OTHER ==
[~2020-05-10] MED LIST changes: +AMOCLA875 PO; +AMOX-CLAV 875-1 EAC5; +Acetyl L-Carni500 MG PO; +Cleocin HCl300 MG PO; +DESVENLAFAXINE50 M3 PO; +ENOX60I SC; +LATUDA20 M3 PO; +MONT10T PO; +Natrol 5-Htp50 MG PO; +PRAZ2 PO; +PROM25 PO; +Ritalin10 MG PO; +Roxicodone5 MG PO; +WARF7.5 PO
[2020-05-11 13:11] LABS: Candida species (DNA Probe) Negative (NEGATIVE); G. vaginalis (DNA Probe) Positive (NEGATIVE); T. vaginalis (DNA Probe) Negative (NEGATIVE)
== END | disposition home or self-care (01) ==
LOC: LAB 14:26 → LAB SHORT 14:26
PROVIDERS: Obstetrics & Gynecology
DX: N89.8 Other specified noninflammatory disorders of vagina (principal)
CPT/HCPCS: 87480; 87510; 87660

== ENCOUNTER 2020-05-15 16:16 | Emergency (ER) | payer OTHER ==
[~2020-05-15] VITALS: Ht 160 cm; Wt 74.8 kg
[~2020-05-15 16:16] MED LIST changes: -AMOCLA875 PO; -AMOX-CLAV 875-1 EAC5; -Acetyl L-Carni500 MG PO; -Cleocin HCl300 MG PO; -DESVENLAFAXINE50 M3 PO; -ENOX60I SC; -LATUDA20 M3 PO; -MONT10T PO; -Natrol 5-Htp50 MG PO; -PRAZ2 PO; -PROM25 PO; -Ritalin10 MG PO; -Roxicodone5 MG PO; -WARF7.5 PO
[2020-05-15 18:32] LABS: Hematocrit 37.2 % (33.0-51.0); Hemoglobin 12.5 g/dL (11.5-16.0); Mean Corpuscular HGB 31.3 pg (26.0-34.0); Mean Corpuscular HGB Conc 33.6 g/dL (31.5-36.5); Mean Corpuscular Volume 93 fL (80-100); Mean Platelet Volume 10.8 fL (9.1-12.4); Platelet Count 289 K/mm3 (150-400); RDW Coefficient Variation 13.8 % (11.7-14.2); RDW Standard Deviation 47.4 fL (35.1-46.3); White Blood Cell Count 6.72 K/mm3 (4.00-11.30)
[2020-05-15 19:07] LABS: BASOPHILS ABSOLUTE MAN 0.06 K/mm3 (0.00-0.23); BASOPHILS PERCENT MAN 1 % (0-2); EOSINOPHILS PERCENT MAN 3 % (0-6); LYMPHOCYTES ABSOLUTE MAN 1.68 K/mm3 (0.84-5.20); LYMPHOCYTES PERCENT MAN 25 % (21-46); MONOCYTES ABSOLUTE MAN 0.47 K/mm3 (0.16-1.47); MONOCYTES PERCENT MAN 7 % (4-13); SEG NEUTROPHILS PERCENT MAN 64 % (41-73); TOTAL CELLS COUNTED 100
[2020-05-15 19:36] LABS: Troponin I 0.171 ng/mL (0.000-0.040)
[2020-05-15 19:38] LABS: Alanine Aminotransfer (ALT/SGP 41 U/L (12-78); Albumin/Globulin Ratio 1.2 (0.8-1.8); Alk Phos 82 U/L (50-136); Anion Gap 7 mmol/L (6-16); Aspartate Aminotrans (AST/SGOT 34 U/L (12-37); Bilirubin, Total 0.5 mg/dL (0.1-1.0); Blood Urea Nitrogen 16 mg/dL (8-24); Bun/Creatinine Ratio 18.4 (12.0-20.0); CO2, Blood 26 mmol/L (21-32); Calcium, Blood 8.9 mg/dL (8.5-10.1); Chloride, Blood 104 mmol/L (98-108); Creatinine, Blood 0.87 mg/dL (0.40-1.00); Globulin, Blood 3.3 g/dL (2.2-4.0); Glomerular Filtration Rate >60 (60-); Glucose, Blood 76 mg/dL (70-99); Potassium, Blood 3.6 mmol/L (3.5-5.5); Sodium, Blood 137 mmol/L (136-145); Total Protein, Blood 7.3 g/dL (6.4-8.2)
[2020-05-15] MEDS ORDERED: Roxicodone5 MG PO (20:03)
== END 2020-05-15 20:10 | disposition home or self-care (01) ==
LOC: ER 16:16
PROVIDERS: Emergency Medicine
DX: I42.1 Obstructive hypertrophic cardiomyopathy (principal); Z79.01 Long term (current) use of anticoagulants; Z79.82 Long term (current) use of aspirin; Z79.899 Other long term (current) drug therapy
CPT/HCPCS: 36415; 71046; 80053; 84484; 85007; 85027; 93005; 93010; 99285-25

== ENCOUNTER 2020-11-26 19:34 | Emergency (ER) | payer MEDICARE, OTHER ==
[~2020-11-26] VITALS: Ht 160 cm; Wt 73.9 kg
[~2020-11-26 19:34] MED LIST changes: +Acetyl L-Carni500 MG PO; +MONT10T PO; +Roxicodone5 MG PO
[2020-11-26 20:11] LABS: BASOPHILS ABSOLUTE AUTO 0.05 K/mm3 (0.00-0.23); BASOPHILS PERCENT AUTO 1 % (0-2); EOSINOPHILS ABSOLUTE AUTO 0.12 K/mm3 (0.00-0.68); EOSINOPHILS PERCENT AUTO 2 % (0-6); Hematocrit 40.1 % (33.0-51.0); Hemoglobin 13.9 g/dL (11.5-16.0); IMMATURE GRAN ABSOLUTE AUTO 0.02 K/mm3 (0.00-0.10); IMMATURE GRAN PERCENT AUTO 0 % (0-1); LYMPHOCYTES ABSOLUTE AUTO 2.11 K/mm3 (0.84-5.20); LYMPHOCYTES PERCENT AUTO 31 % (21-46); MONOCYTES ABSOLUTE AUTO 0.75 K/mm3 (0.16-1.47); MONOCYTES PERCENT AUTO 11 % (4-13); Mean Corpuscular HGB Conc 34.7 g/dL (31.5-36.5); Mean Corpuscular Volume 90 fL (80-100); Mean Platelet Volume 9.9 fL (9.1-12.4); NEUTROPHILS ABSOLUTE AUTO 3.71 K/mm3 (1.96-9.15); NEUTROPHILS PERCENT AUTO 55 % (41-73); Platelet Count 276 K/mm3 (150-400); RDW Coefficient Variation 13.4 % (11.7-14.2); RDW Standard Deviation 43.8 fL (35.1-46.3); Red Blood Cell Count 4.48 M/mm3 (3.80-5.20); White Blood Cell Count 6.76 K/mm3 (4.00-11.30)
[2020-11-26 20:31] LABS: Alanine Aminotransfer (ALT/SGP 55 U/L (12-78); Albumin, Blood 4.1 g/dL (3.4-5.0); Albumin/Globulin Ratio 1.1 (0.8-1.8); Alk Phos 72 U/L (50-136); Anion Gap 5 mmol/L (6-16); Aspartate Aminotrans (AST/SGOT 94 U/L (12-37); Bilirubin, Total 0.4 mg/dL (0.1-1.0); Blood Urea Nitrogen 10 mg/dL (8-24); Bun/Creatinine Ratio 12.2 (12.0-20.0); CO2, Blood 27 mmol/L (21-32); Calcium, Blood 9.1 mg/dL (8.5-10.1); Chloride, Blood 107 mmol/L (98-108); Creatinine, Blood 0.82 mg/dL (0.40-1.00); Globulin, Blood 3.7 g/dL (2.2-4.0); Glomerular Filtration Rate >60 (60-); Glucose, Blood 110 mg/dL (70-99); Potassium, Blood 3.5 mmol/L (3.5-5.5); Sodium, Blood 139 mmol/L (136-145); Total Protein, Blood 7.8 g/dL (6.4-8.2); Troponin I 0.294 ng/mL (0.000-0.040)
[2020-11-27] MEDS ORDERED: AMOCLA875 PO (00:31)
== END 2020-11-27 00:55 | disposition home or self-care (01) ==
LOC: ER 19:34
PROVIDERS: Physician Assistant
DX: K04.7 Periapical abscess without sinus (principal); R79.89 Other specified abnormal findings of blood chemistry; I50.9 Heart failure, unspecified; I25.2 Old myocardial infarction; Z88.8 Allergy status to other drugs, medicaments and biological substances; Z79.899 Other long term (current) drug therapy; Z79.01 Long term (current) use of anticoagulants
CPT/HCPCS: 36415; 71046; 80053; 83880; 84484; 85025; 93005; 93010; 96374; 96375; 99284-25; A9270; J1885; J2550

== ENCOUNTER 2020-12-05 18:51 | Observation (INO) | payer MEDICARE, OTHER ==
[~2020-12-05] VITALS: Ht 160 cm; Wt 74.0 kg
[~2020-12-05 18:51] MED LIST changes: +AMOCLA875 PO
[2020-12-05 19:36] LABS: BASOPHILS ABSOLUTE AUTO 0.06 K/mm3 (0.00-0.23); BASOPHILS PERCENT AUTO 1 % (0-2); EOSINOPHILS ABSOLUTE AUTO 0.11 K/mm3 (0.00-0.68); EOSINOPHILS PERCENT AUTO 1 % (0-6); Hematocrit 38.7 % (33.0-51.0); Hemoglobin 13.3 g/dL (11.5-16.0); IMMATURE GRAN ABSOLUTE AUTO 0.02 K/mm3 (0.00-0.10); IMMATURE GRAN PERCENT AUTO 0 % (0-1); LYMPHOCYTES ABSOLUTE AUTO 2.49 K/mm3 (0.84-5.20); LYMPHOCYTES PERCENT AUTO 29 % (21-46); MONOCYTES PERCENT AUTO 12 % (4-13); Mean Corpuscular HGB 30.7 pg (26.0-34.0); Mean Corpuscular HGB Conc 34.4 g/dL (31.5-36.5); Mean Corpuscular Volume 89 fL (80-100); Mean Platelet Volume 10.8 fL (9.1-12.4); NEUTROPHILS ABSOLUTE AUTO 5.03 K/mm3 (1.96-9.15); NEUTROPHILS PERCENT AUTO 58 % (41-73); Platelet Count 234 K/mm3 (150-400); RDW Coefficient Variation 13.3 % (11.7-14.2); RDW Standard Deviation 43.8 fL (35.1-46.3); Red Blood Cell Count 4.33 M/mm3 (3.80-5.20); White Blood Cell Count 8.71 K/mm3 (4.00-11.30)
[2020-12-05 19:40] LABS: Alanine Aminotransfer (ALT/SGP 61 U/L (12-78); Albumin/Globulin Ratio 1.1 (0.8-1.8); Alk Phos 77 U/L (50-136); Anion Gap 9 mmol/L (6-16); Aspartate Aminotrans (AST/SGOT 76 U/L (12-37); Bilirubin, Total 0.5 mg/dL (0.1-1.0); Blood Urea Nitrogen 17 mg/dL (8-24); Bun/Creatinine Ratio 20.7 (12.0-20.0); CO2, Blood 23 mmol/L (21-32); Calcium, Blood 8.8 mg/dL (8.5-10.1); Chloride, Blood 106 mmol/L (98-108); Creatinine, Blood 0.82 mg/dL (0.40-1.00); Globulin, Blood 3.6 g/dL (2.2-4.0); Glomerular Filtration Rate >60 (60-); Glucose, Blood 78 mg/dL (70-99); Potassium, Blood 4.2 mmol/L (3.5-5.5); Sodium, Blood 138 mmol/L (136-145); Total Protein, Blood 7.6 g/dL (6.4-8.2); Troponin I 0.474 ng/mL (0.000-0.040)
[2020-12-05] MEDS ORDERED: LATUDA20 M3 PO (19:59)
[2020-12-05] MEDS ORDERED: BACL20 PO (20:00)
[2020-12-05] MEDS ORDERED: WARF7.5 PO (20:32)
[2020-12-05] MEDS ORDERED: PRAZ2 PO (20:34)
[2020-12-05] MEDS ORDERED: DESVENLAFAXINE50 M3 PO (20:35)
[2020-12-05] MEDS ORDERED: AMOX-CLAV 875-1 EAC5 (20:35)
[2020-12-05] MEDS ORDERED: PROM25 PO (20:35)
[2020-12-05] MEDS ORDERED: Natrol 5-Htp50 MG PO (20:41)
[2020-12-05 22:27] LABS: International Normalized Ratio 2.71; Prothrombin Time Results 27.7 Sec (9.7-11.5)
[2020-12-06 04:16] LABS: International Normalized Ratio 2.46; Prothrombin Time Results 25.2 Sec (9.7-11.5)
--- NOTE | 2020-12-06 04:53 | NUR ---
SHIFT SUMMARY PT NEW ED ADMIT THIS EVENING. A/O X 4. EXTENSIVE CARDIAC HX. PT HAS HX OF ANXIETY. PLEASANT BUT ANXIOUS UPON ADMISSION. VERY KNOWLEDGEABLE ABOUT HER MEDICAL HX. NO COMPLAINTS OF CHEST PAIN SINCE ADMISSION. PT REPORTED THAT PAIN PRIOR WAS INTERMITTENT AND RADIATED TO LEFT ARM AND JAW. PT ATE FOOD BROUGHT IN BY FAMILY. TOLERATED WELL. DENIES ANY NAUSEA OR SOB. TELEMETRY READING SR IN THE 90'S. PT HAS PACER/AICD. HYPOTENSIVE THIS AM. ASYMPTOMATIC. SLEEPING. VITAL SIGNS STABLE. WILL CONTINUE TO MONITOR.
[2020-12-06] MEDS ORDERED: AMOCLA875 PO (13:40)
[2020-12-06] MEDS ORDERED: ENOX60I SC (13:41)
--- NOTE | 2020-12-06 17:19 | NUR ---
DISCHARGE SUMMARY PATIENT DISCHARGED TO HOME. PATIENT ALERT AND ORIENTED, INDEPENDENT IN THE ROOM THROUGHOUT THIS SHIFT. PATIENT MEDICATED FOR PAIN PER EMAR THIS SHIFT. IV REMOVED PRIOR TO DISCHARGE. DISCHARGE AND MEDICATION INSTRUCTIONS REVIEWED WITH PATIENT, NO QUESTIONS AT THIS TIME. PATIENT'S SISTER IN THE ROOM TO PROVIDE TRANSPORATION. PATIENT TO VEHICLE VIA WHEELCHAIR BY UNDERGROUND DRILL OPERATOR.
== END 2020-12-06 16:20 | disposition home or self-care (01) ==
LOC: ER 18:51 → MEDS 18:52 → ER 22:36 → MEDS 22:50
PROVIDERS: Emergency Medicine; Pharmacist; ADMIT Internal Medicine
DX: I42.1 Obstructive hypertrophic cardiomyopathy (principal); R55 Syncope and collapse; I25.2 Old myocardial infarction; I11.0 Hypertensive heart disease with heart failure; I50.9 Heart failure, unspecified; I45.10 Unspecified right bundle-branch block; R79.89 Other specified abnormal findings of blood chemistry; E03.9 Hypothyroidism, unspecified; F41.9 Anxiety disorder, unspecified; R51.9 Headache, unspecified; G47.00 Insomnia, unspecified; G62.9 Polyneuropathy, unspecified; K04.7 Periapical abscess without sinus; J30.2 Other seasonal allergic rhinitis; I07.1 Rheumatic tricuspid insufficiency; Z88.5 Allergy status to narcotic agent; Z88.8 Allergy status to other drugs, medicaments and biological substances; Z86.73 Personal history of transient ischemic attack (TIA), and cerebral infarction without residual deficits; Z95.0 Presence of cardiac pacemaker; Z95.2 Presence of prosthetic heart valve; Z79.01 Long term (current) use of anticoagulants
CPT/HCPCS: 36415; 71045; 80053; 83880; 84484; 85025; 85610; 93005; 93010; 93306; 96365; 96372; 99285-25; A9270; G0378; J0295; J1650

== ENCOUNTER → 2020-12-10 | Outpatient (CLI) | payer MEDICARE, OTHER ==
[~2020-12-10] MED LIST changes: +AMOX-CLAV 875-1 EAC5; +Cleocin HCl300 MG PO; +DESVENLAFAXINE50 M3 PO; +ENOX60I SC; +LATUDA20 M3 PO; +Natrol 5-Htp50 MG PO; +PRAZ2 PO; +PROM25 PO; +Ritalin10 MG PO; +WARF7.5 PO
== END | disposition home or self-care (01) ==
LOC: LAB SHORT 14:14 → LAB 14:14
DX: R07.9 Chest pain, unspecified (principal)
CPT/HCPCS: 84484

== ENCOUNTER 2020-12-13 11:33 | Emergency (ER) | payer MEDICARE, OTHER ==
[~2020-12-13] VITALS: Ht 160 cm; Wt 72.6 kg
[~2020-12-13 11:33] MED LIST changes: -Cleocin HCl300 MG PO; -Ritalin10 MG PO
[2020-12-13] MEDS ORDERED: Ritalin10 MG PO (11:43)
[2020-12-13 12:13] LABS: BASOPHILS ABSOLUTE AUTO 0.05 K/mm3 (0.00-0.23); BASOPHILS PERCENT AUTO 1 % (0-2); EOSINOPHILS ABSOLUTE AUTO 0.12 K/mm3 (0.00-0.68); EOSINOPHILS PERCENT AUTO 2 % (0-6); Hematocrit 36.9 % (33.0-51.0); Hemoglobin 12.4 g/dL (11.5-16.0); IMMATURE GRAN ABSOLUTE AUTO 0.02 K/mm3 (0.00-0.10); IMMATURE GRAN PERCENT AUTO 0 % (0-1); LYMPHOCYTES ABSOLUTE AUTO 1.95 K/mm3 (0.84-5.20); LYMPHOCYTES PERCENT AUTO 31 % (21-46); MONOCYTES ABSOLUTE AUTO 0.67 K/mm3 (0.16-1.47); MONOCYTES PERCENT AUTO 11 % (4-13); Mean Corpuscular HGB 30.6 pg (26.0-34.0); Mean Corpuscular HGB Conc 33.6 g/dL (31.5-36.5); Mean Corpuscular Volume 91 fL (80-100); Mean Platelet Volume 10.5 fL (9.1-12.4); NEUTROPHILS ABSOLUTE AUTO 3.59 K/mm3 (1.96-9.15); NEUTROPHILS PERCENT AUTO 56 % (41-73); Platelet Count 287 K/mm3 (150-400); RDW Coefficient Variation 13.8 % (11.7-14.2); RDW Standard Deviation 46.5 fL (35.1-46.3); Red Blood Cell Count 4.05 M/mm3 (3.80-5.20)
[2020-12-13 12:36] LABS: Alanine Aminotransfer (ALT/SGP 47 U/L (12-78); Albumin, Blood 3.9 g/dL (3.4-5.0); Albumin/Globulin Ratio 1.1 (0.8-1.8); Alk Phos 81 U/L (50-136); Anion Gap 6 mmol/L (6-16); Aspartate Aminotrans (AST/SGOT 35 U/L (12-37); Bilirubin, Total 0.2 mg/dL (0.1-1.0); Blood Urea Nitrogen 14 mg/dL (8-24); Bun/Creatinine Ratio 17.2 (12.0-20.0); CO2, Blood 23 mmol/L (21-32); Chloride, Blood 112 mmol/L (98-108); Creatinine, Blood 0.82 mg/dL (0.40-1.00); Globulin, Blood 3.5 g/dL (2.2-4.0); Glomerular Filtration Rate >60 (60-); Glucose, Blood 105 mg/dL (70-99); Sodium, Blood 141 mmol/L (136-145); Total Protein, Blood 7.4 g/dL (6.4-8.2)
[2020-12-13 12:37] LABS: Troponin I 0.299 ng/mL (0.000-0.040)
[2020-12-13 12:55] LABS: International Normalized Ratio 1.85; Prothrombin Time Results 19.3 Sec (9.7-11.5)
[2020-12-13] MEDS ORDERED: Cleocin HCl300 MG PO (13:16)
== END 2020-12-13 13:30 | disposition home or self-care (01) ==
LOC: ER 11:33
PROVIDERS: Emergency Medicine
DX: I42.9 Cardiomyopathy, unspecified (principal); I50.9 Heart failure, unspecified; Z79.01 Long term (current) use of anticoagulants; Z88.8 Allergy status to other drugs, medicaments and biological substances; Z88.5 Allergy status to narcotic agent; Z79.899 Other long term (current) drug therapy
CPT/HCPCS: 71046; 80053; 83880; 84484; 85025; 85610; 93005; 93010; 99285-25; A9270; J2405

== ENCOUNTER 2020-12-16 14:35 | Emergency (ER) | payer MEDICARE, OTHER ==
[~2020-12-16] VITALS: Ht 160 cm; Wt 73.0 kg
[~2020-12-16 14:35] MED LIST changes: +Cleocin HCl300 MG PO; +Ritalin10 MG PO
[2020-12-16 19:32] LABS: BASOPHILS ABSOLUTE AUTO 0.03 K/mm3 (0.00-0.23); BASOPHILS PERCENT AUTO 0 % (0-2); EOSINOPHILS ABSOLUTE AUTO 0.03 K/mm3 (0.00-0.68); EOSINOPHILS PERCENT AUTO 0 % (0-6); Hematocrit 38.3 % (33.0-51.0); Hemoglobin 12.8 g/dL (11.5-16.0); IMMATURE GRAN ABSOLUTE AUTO 0.03 K/mm3 (0.00-0.10); IMMATURE GRAN PERCENT AUTO 0 % (0-1); LYMPHOCYTES ABSOLUTE AUTO 2.07 K/mm3 (0.84-5.20); LYMPHOCYTES PERCENT AUTO 25 % (21-46); MONOCYTES ABSOLUTE AUTO 0.57 K/mm3 (0.16-1.47); MONOCYTES PERCENT AUTO 7 % (4-13); Mean Corpuscular HGB Conc 33.4 g/dL (31.5-36.5); Mean Corpuscular Volume 93 fL (80-100); Mean Platelet Volume 9.9 fL (9.1-12.4); NEUTROPHILS ABSOLUTE AUTO 5.58 K/mm3 (1.96-9.15); NEUTROPHILS PERCENT AUTO 67 % (41-73); Platelet Count 287 K/mm3 (150-400); RDW Coefficient Variation 14.3 % (11.7-14.2); RDW Standard Deviation 48.8 fL (35.1-46.3); Red Blood Cell Count 4.13 M/mm3 (3.80-5.20); White Blood Cell Count 8.31 K/mm3 (4.00-11.30)
[2020-12-16 20:05] LABS: Alanine Aminotransfer (ALT/SGP 39 U/L (12-78); Albumin/Globulin Ratio 1.1 (0.8-1.8); Alk Phos 70 U/L (50-136); Anion Gap 5 mmol/L (6-16); Aspartate Aminotrans (AST/SGOT 32 U/L (12-37); Bilirubin, Total 0.4 mg/dL (0.1-1.0); Blood Urea Nitrogen 15 mg/dL (8-24); Bun/Creatinine Ratio 18.3 (12.0-20.0); CO2, Blood 25 mmol/L (21-32); Chloride, Blood 110 mmol/L (98-108); Creatinine, Blood 0.82 mg/dL (0.40-1.00); Globulin, Blood 3.7 g/dL (2.2-4.0); Glomerular Filtration Rate >60 (60-); Glucose, Blood 110 mg/dL (70-99); Potassium, Blood 3.6 mmol/L (3.5-5.5); Sodium, Blood 140 mmol/L (136-145); Total Protein, Blood 7.7 g/dL (6.4-8.2); Troponin I 0.228 ng/mL (0.000-0.040)
== END 2020-12-16 23:30 | disposition home or self-care (01) ==
LOC: ER 14:35
PROVIDERS: Physician Assistant
DX: R55 Syncope and collapse (principal); R68.84 Jaw pain; Z79.899 Other long term (current) drug therapy
CPT/HCPCS: 36415; 80053; 84484; 84703; 85025; 93005; 93010; 96374; 99284-25; A9270; J1885

== ENCOUNTER 2020-12-22 23:41 | Emergency (ER) | payer MEDICARE, OTHER ==
[2020-12-23 00:10] LABS: Calcium, Ionized (POC) 1.16 mmol/L (1.10-1.46); Chloride (POC) 101 mmol/L (98-108); Creatinine (POC) 1.5 mg/dL (0.6-1.0); Glucose (ISTAT POC) 95 mg/dL (70-99); Hemoglobin (POC) 14.3 g/dL (12.0-16.0); Sodium (POC) 139 mmol/L (135-148); Total CO2 (POC) 28 mmol/L (21-32)
== END 2020-12-23 00:24 | disposition home or self-care (01) ==
LOC: ER 23:41
PROVIDERS: Student in an Organized Health Care Education/Training Program
DX: Z00.00 Encounter for general adult medical examination without abnormal findings (principal); I25.2 Old myocardial infarction; I50.9 Heart failure, unspecified
CPT/HCPCS: 80047; 85014; 99283

== ENCOUNTER 2021-01-06 18:14 | Emergency (ER) | payer MEDICARE, OTHER ==
[~2021-01-06] VITALS: Ht 160 cm; Wt 72.6 kg
[2021-01-06 19:19] LABS: BASOPHILS ABSOLUTE AUTO 0.04 K/mm3 (0.00-0.23); BASOPHILS PERCENT AUTO 0 % (0-2); EOSINOPHILS ABSOLUTE AUTO 0.18 K/mm3 (0.00-0.68); EOSINOPHILS PERCENT AUTO 2 % (0-6); Hematocrit 39.2 % (33.0-51.0); Hemoglobin 13.2 g/dL (11.5-16.0); IMMATURE GRAN ABSOLUTE AUTO 0.12 K/mm3 (0.00-0.10); IMMATURE GRAN PERCENT AUTO 1 % (0-1); LYMPHOCYTES ABSOLUTE AUTO 3.08 K/mm3 (0.84-5.20); LYMPHOCYTES PERCENT AUTO 30 % (21-46); MONOCYTES ABSOLUTE AUTO 0.88 K/mm3 (0.16-1.47); MONOCYTES PERCENT AUTO 9 % (4-13); Mean Corpuscular HGB 30.9 pg (26.0-34.0); Mean Corpuscular HGB Conc 33.7 g/dL (31.5-36.5); Mean Corpuscular Volume 92 fL (80-100); NEUTROPHILS ABSOLUTE AUTO 5.85 K/mm3 (1.96-9.15); NEUTROPHILS PERCENT AUTO 58 % (41-73); Platelet Count 307 K/mm3 (150-400); RDW Coefficient Variation 13.8 % (11.7-14.2); RDW Standard Deviation 46.7 fL (35.1-46.3); Red Blood Cell Count 4.27 M/mm3 (3.80-5.20); White Blood Cell Count 10.15 K/mm3 (4.00-11.30)
[2021-01-06 19:38] LABS: Albumin, Blood 4.1 g/dL (3.4-5.0); Albumin/Globulin Ratio 1.2 (0.8-1.8); Bilirubin, Total 0.6 mg/dL (0.1-1.0); Bun/Creatinine Ratio 20.9 (12.0-20.0); Calcium, Blood 9.4 mg/dL (8.5-10.1); Creatinine, Blood 1.1 mg/dL (0.40-1.00); Globulin, Blood 3.4 g/dL (2.2-4.0); Potassium, Blood 3.3 mmol/L (3.5-5.5); Total Protein, Blood 7.5 g/dL (6.4-8.2)
[2021-01-06] MEDS ORDERED: VANCOCIN HCL125 MG PO (21:34)
== END 2021-01-06 22:23 | disposition home or self-care (01) ==
LOC: ER 18:14
PROVIDERS: Physician Assistant
DX: K11.20 Sialoadenitis, unspecified (principal); R11.2 Nausea with vomiting, unspecified; I50.9 Heart failure, unspecified; Z79.899 Other long term (current) drug therapy; Z79.01 Long term (current) use of anticoagulants
CPT/HCPCS: 36415; 80053; 85025; 96365; 99283-25

== ENCOUNTER 2021-01-07 10:10 | Emergency (ER) | payer MEDICARE, OTHER ==
[~2021-01-07] VITALS: Ht 170.2 cm; Wt 72.6 kg
[~2021-01-07 10:10] MED LIST changes: +VANCOCIN HCL125 MG PO
[2021-01-07 12:05] LABS: BASOPHILS ABSOLUTE AUTO 0.03 K/mm3 (0.00-0.23); BASOPHILS PERCENT AUTO 0 % (0-2); EOSINOPHILS ABSOLUTE AUTO 0.24 K/mm3 (0.00-0.68); EOSINOPHILS PERCENT AUTO 3 % (0-6); Hemoglobin 12.3 g/dL (11.5-16.0); IMMATURE GRAN ABSOLUTE AUTO 0.08 K/mm3 (0.00-0.10); IMMATURE GRAN PERCENT AUTO 1 % (0-1); LYMPHOCYTES PERCENT AUTO 23 % (21-46); MONOCYTES PERCENT AUTO 10 % (4-13); Mean Corpuscular HGB 31.1 pg (26.0-34.0); Mean Corpuscular HGB Conc 34.2 g/dL (31.5-36.5); Mean Corpuscular Volume 91 fL (80-100); NEUTROPHILS ABSOLUTE AUTO 4.58 K/mm3 (1.96-9.15); NEUTROPHILS PERCENT AUTO 63 % (41-73); Platelet Count 276 K/mm3 (150-400); RDW Coefficient Variation 13.6 % (11.7-14.2); RDW Standard Deviation 46.2 fL (35.1-46.3); Red Blood Cell Count 3.96 M/mm3 (3.80-5.20); White Blood Cell Count 7.33 K/mm3 (4.00-11.30)
[2021-01-07 12:22] LABS: International Normalized Ratio 1.53; Prothrombin Time Results 16.1 Sec (9.7-11.5)
[2021-01-07 12:23] LABS: Albumin, Blood 3.7 g/dL (3.4-5.0); Albumin/Globulin Ratio 1.1 (0.8-1.8); Bilirubin, Total 0.4 mg/dL (0.1-1.0); Bun/Creatinine Ratio 23.1 (12.0-20.0); Calcium, Blood 9.6 mg/dL (8.5-10.1); Creatinine, Blood 0.99 mg/dL (0.40-1.00); Globulin, Blood 3.3 g/dL (2.2-4.0); Potassium, Blood 3.7 mmol/L (3.5-5.5)
[2021-01-08] MEDS ORDERED: CLIN100S IV (10:41)
== END 2021-01-07 13:10 | disposition home or self-care (01) ==
LOC: ER 10:10
PROVIDERS: Emergency Medicine
DX: K11.20 Sialoadenitis, unspecified (principal); I11.0 Hypertensive heart disease with heart failure; I50.9 Heart failure, unspecified; Z79.899 Other long term (current) drug therapy; Z79.01 Long term (current) use of anticoagulants
CPT/HCPCS: 36415; 80053; 85025; 85610; 96365; 99283-25; J7030

== ENCOUNTER 2021-01-08 01:59 | Day surgery (SDC) | payer MEDICARE, OTHER ==
--- NOTE | 2021-01-08 09:34 | NUR ---
Patient is sitting outside the infusion center crying. She talks about her personal issues, medical conditions and her lack of hope. Patient tells me that she is spiritual but is reluctant to discuss her specific beliefs. I normalize her struggle, reinforce helpful attitudes and practices and provide therapeutic listening, spirirutal guidance and prayer. Patient responds well and shows signs of increased hope. I will continue to remain available to patient and family.
[2021-01-08] MEDS ORDERED: CLIN100S IV (10:41)
== END 2021-01-08 09:05 | disposition home or self-care (01) ==
LOC: ATC 01:59
DX: K11.20 Sialoadenitis, unspecified (principal); I50.9 Heart failure, unspecified; Z79.01 Long term (current) use of anticoagulants; F41.9 Anxiety disorder, unspecified
CPT/HCPCS: 96365; 99283

== ENCOUNTER 2021-01-09 07:16 | Day surgery (SDC) | payer MEDICARE, OTHER ==
[~2021-01-09 07:16] MED LIST changes: +CLIN100S IV
== END 2021-01-09 15:53 | disposition home or self-care (01) ==
LOC: ATC 07:16
DX: K11.20 Sialoadenitis, unspecified (principal); J36 Peritonsillar abscess; I25.2 Old myocardial infarction; I50.9 Heart failure, unspecified; Z95.0 Presence of cardiac pacemaker; Z95.2 Presence of prosthetic heart valve; Z79.01 Long term (current) use of anticoagulants; Z88.6 Allergy status to analgesic agent; Z88.8 Allergy status to other drugs, medicaments and biological substances
CPT/HCPCS: 70450; 71046; 80053; 83690; 83880; 84484; 85025; 93005; 93010; 96365; 99282; 99284-25

== ENCOUNTER 2021-01-10 01:06 | Day surgery (SDC) | payer MEDICARE, OTHER ==
--- NOTE | 2021-01-10 08:41 | NUR ---
PT WAS VERY LETHARGIC DURING VISIT. PT ARRIVED AMBULATING SLOWLY DOWN THE SMITH. DC'D VIA WC. PT STATED THAT HER SISTER WOULD BE PICKING HER UP. LEFT PT SITTING IN WC NEAR THE EXIT. STS SHE WILL CALL HER SISTER.
[2021-01-11] MEDS ORDERED: Ativan1 MG PO (05:32)
== END 2021-01-10 15:44 | disposition home or self-care (01) ==
LOC: ATC 01:06
DX: K11.20 Sialoadenitis, unspecified (principal); I42.8 Other cardiomyopathies; E06.3 Autoimmune thyroiditis; I25.2 Old myocardial infarction; I50.9 Heart failure, unspecified; Z95.0 Presence of cardiac pacemaker; Z95.2 Presence of prosthetic heart valve
CPT/HCPCS: 96365

== ENCOUNTER 2021-01-11 01:29 | Emergency (ER) | payer MEDICARE, OTHER ==
[~2021-01-11] VITALS: Ht 160 cm; Wt 72.6 kg
[2021-01-11] MEDS ORDERED: Ativan1 MG PO (05:32)
== END 2021-01-11 07:15 | disposition home or self-care (01) ==
LOC: ER 01:29
DX: R11.0 Nausea (principal); R53.81 Other malaise; R53.82 Chronic fatigue, unspecified
CPT/HCPCS: 96374; 99283-25; J2550; J7030

== ENCOUNTER 2021-01-11 07:43 | Day surgery (SDC) | payer MEDICARE, OTHER ==
--- NOTE | 2021-01-11 17:05 | NUR ---
PATIENT CALLED AND REPORTED SHE WOULD NOT BE IN FOR HER SECOND APPT TODAY
== END 2021-01-11 08:05 | disposition home or self-care (01) ==
LOC: ATC 07:43
DX: K11.20 Sialoadenitis, unspecified (principal); I42.8 Other cardiomyopathies; I50.9 Heart failure, unspecified; E06.3 Autoimmune thyroiditis; I25.2 Old myocardial infarction; Z95.0 Presence of cardiac pacemaker; Z95.2 Presence of prosthetic heart valve
CPT/HCPCS: 96365

== ENCOUNTER → 2021-01-11 | Outpatient (CLI) | payer MEDICARE, OTHER ==
[2021-01-11 12:08] LABS: International Normalized Ratio 2.64
== END | disposition home or self-care (01) ==
LOC: LAB SHORT 11:15 → LAB 11:15
PROVIDERS: Physician Assistant
DX: R53.83 Other fatigue (principal); Z95.0 Presence of cardiac pacemaker
CPT/HCPCS: 85610

== ENCOUNTER 2021-07-27 21:20 | Emergency (ER) | payer MEDICARE, OTHER ==
[~2021-07-27] VITALS: Ht 160 cm; Wt 69.0 kg
[2021-07-27 22:15] LABS: BASOPHILS ABSOLUTE AUTO 0.07 K/mm3 (0.00-0.23); BASOPHILS PERCENT AUTO 1 % (0-2); EOSINOPHILS ABSOLUTE AUTO 0.14 K/mm3 (0.00-0.68); EOSINOPHILS PERCENT AUTO 1 % (0-6); Hematocrit 39.3 % (33.0-51.0); Hemoglobin 13.1 g/dL (11.5-16.0); IMMATURE GRAN PERCENT AUTO 1 % (0-1); LYMPHOCYTES ABSOLUTE AUTO 3.85 K/mm3 (0.84-5.20); LYMPHOCYTES PERCENT AUTO 33 % (21-46); MONOCYTES ABSOLUTE AUTO 1.05 K/mm3 (0.16-1.47); MONOCYTES PERCENT AUTO 9 % (4-13); Mean Corpuscular HGB 30.2 pg (26.0-34.0); Mean Corpuscular HGB Conc 33.3 g/dL (31.5-36.5); Mean Corpuscular Volume 91 fL (80-100); Mean Platelet Volume 10.6 fL (9.1-12.4); NEUTROPHILS ABSOLUTE AUTO 6.35 K/mm3 (1.96-9.15); NEUTROPHILS PERCENT AUTO 55 % (41-73); Platelet Count 287 K/mm3 (150-400); RDW Coefficient Variation 15.5 % (11.7-14.2); RDW Standard Deviation 51.4 fL (35.1-46.3); Red Blood Cell Count 4.34 M/mm3 (3.80-5.20); White Blood Cell Count 11.56 K/mm3 (4.00-11.30)
[2021-07-27 22:29] LABS: Albumin, Blood 3.9 g/dL (3.4-5.0); Albumin/Globulin Ratio 1.2 (0.8-1.8); Bilirubin, Total 0.4 mg/dL (0.1-1.0); Bun/Creatinine Ratio 27.1 (12.0-20.0); Calcium, Blood 8.7 mg/dL (8.5-10.1); Globulin, Blood 3.3 g/dL (2.2-4.0); Potassium, Blood 3.5 mmol/L (3.5-5.5); Total Protein, Blood 7.2 g/dL (6.4-8.2)
[2021-07-27 22:51] LABS: U Amphetamine Screen Not Detected; U Barbituate Screen Not Detected; U Benzodiazapine Screen DETECTED; U Buprenorphine Screen Not Detected; U Cannabinoids Screen Not Detected; U Cocaine Screen Not Detected; U Methadone Screen Not Detected; U Methamphetamine Screen Not Detected; U Opiates Screen Not Detected; U Oxycodone Screen Not Detected; U Phencyclidine Screen Not Detected; U Propoxyphene Screen Not Detected
[2021-07-27 23:04] LABS: International Normalized Ratio 2.4; Prothrombin Time Results 23.8 Sec (9.7-11.5)
== END 2021-07-28 01:36 | disposition home or self-care (01) ==
LOC: ER 21:20
PROVIDERS: Student in an Organized Health Care Education/Training Program
DX: R77.8 Other specified abnormalities of plasma proteins (principal); R74.8 Abnormal levels of other serum enzymes; I25.2 Old myocardial infarction; I50.9 Heart failure, unspecified; Z79.899 Other long term (current) drug therapy; Z88.8 Allergy status to other drugs, medicaments and biological substances; Z88.5 Allergy status to narcotic agent
CPT/HCPCS: 36415; 70450; 71045; 80053; 84484; 85025; 85610; 93005; 93010; 99284-25

== ENCOUNTER 2021-08-10 23:11 | Emergency (ER) | payer MEDICARE, OTHER ==
[~2021-08-10] VITALS: Ht 160 cm; Wt 73.5 kg
[2021-08-11] MEDS ORDERED: POTA10T PO (00:10)
[2021-08-11] MEDS ORDERED: METO25 PO (00:10)
[2021-08-11] MEDS ORDERED: DIAZ2 PO (00:10)
== END 2021-08-11 00:30 | disposition home or self-care (01) ==
LOC: ER 23:11
DX: F41.9 Anxiety disorder, unspecified (principal); Z76.0 Encounter for issue of repeat prescription; I50.9 Heart failure, unspecified; Z88.5 Allergy status to narcotic agent; Z88.8 Allergy status to other drugs, medicaments and biological substances; Z79.01 Long term (current) use of anticoagulants; Z79.899 Other long term (current) drug therapy
CPT/HCPCS: 99283; A9270

== ENCOUNTER → 2021-08-13 | Outpatient (CLI) | payer MEDICARE, OTHER ==
[~2021-08-13] MED LIST changes: +DIAZ2 PO; +KETO10 PO; +VENL150ER PO; +Venlafaxine HCl75 MG PO
== END | disposition home or self-care (01) ==
LOC: LAB SHORT 16:25
DX: J32.9 Chronic sinusitis, unspecified (principal)
CPT/HCPCS: 87070

== ENCOUNTER 2021-08-18 15:07 | Emergency (ER) | payer MEDICARE, OTHER ==
[~2021-08-18] VITALS: Ht 160 cm; Wt 73.5 kg
[~2021-08-18 15:07] MED LIST changes: -KETO10 PO
[2021-08-18] MEDS ORDERED: KETO10 PO (17:33)
== END 2021-08-18 17:55 | disposition home or self-care (01) ==
LOC: ER 15:07
DX: G43.909 Migraine, unspecified, not intractable, without status migrainosus (principal); Z88.8 Allergy status to other drugs, medicaments and biological substances; Z88.5 Allergy status to narcotic agent; Z79.899 Other long term (current) drug therapy; Z79.01 Long term (current) use of anticoagulants; I25.2 Old myocardial infarction; I50.9 Heart failure, unspecified
CPT/HCPCS: 36415; 93005; 93010; 96374; 99284-25; A9270; J1885; J7030

== ENCOUNTER → 2021-08-23 | Outpatient (CLI) | payer MEDICARE, OTHER ==
[~2021-08-23] MED LIST changes: +KETO10 PO
== END | disposition home or self-care (01) ==
LOC: LAB 16:20 → LAB SHORT 16:20
DX: J02.9 Acute pharyngitis, unspecified (principal)
CPT/HCPCS: 87081

== ENCOUNTER → 2021-09-10 | Outpatient (CLI) | payer MEDICARE, OTHER | END | disposition home or self-care (01) | LOC: LAB SHORT 14:45 | DX: J02.9 Acute pharyngitis, unspecified (principal) | CPT/HCPCS: 87081 ==

== ENCOUNTER → 2021-09-29 | Outpatient (CLI) | payer MEDICARE, OTHER ==
[~2021-09-29] MED LIST changes: +ONDA4 SL
[2021-09-30 10:51] LABS: Candida species (DNA Probe) Negative (NEGATIVE); G. vaginalis (DNA Probe) Positive (NEGATIVE); T. vaginalis (DNA Probe) Negative (NEGATIVE)
== END ==
LOC: LAB SHORT 18:40 → LAB 18:40
PROVIDERS: Physician Assistant
DX: J02.9 Acute pharyngitis, unspecified (principal); N76.0 Acute vaginitis
CPT/HCPCS: 87081; 87480; 87510; 87660

== ENCOUNTER → 2021-11-03 | Outpatient (CLI) | payer MEDICARE, OTHER ==
[2021-11-04 14:11] LABS: Candida species (DNA Probe) Negative (NEGATIVE); G. vaginalis (DNA Probe) Positive (NEGATIVE); T. vaginalis (DNA Probe) Negative (NEGATIVE)
== END | disposition home or self-care (01) ==
LOC: LAB SHORT 12:00
PROVIDERS: Nurse Practitioner Family
DX: N76.0 Acute vaginitis (principal)
CPT/HCPCS: 87480; 87510; 87660

== ENCOUNTER → 2022-05-13 | Outpatient (CLI) | payer MEDICARE, OTHER ==
[2022-05-13 17:39] LABS: BASOPHILS ABSOLUTE AUTO 0.06 K/mm3 (0.00-0.23); BASOPHILS PERCENT AUTO 1 % (0-2); EOSINOPHILS ABSOLUTE AUTO 0.23 K/mm3 (0.00-0.68); EOSINOPHILS PERCENT AUTO 3 % (0-6); Hematocrit 37.1 % (33.0-51.0); Hemoglobin 12.7 g/dL (11.5-16.0); IMMATURE GRAN ABSOLUTE AUTO 0.03 K/mm3 (0.00-0.10); IMMATURE GRAN PERCENT AUTO 0 % (0-1); LYMPHOCYTES ABSOLUTE AUTO 1.99 K/mm3 (0.84-5.20); LYMPHOCYTES PERCENT AUTO 23 % (21-46); MONOCYTES PERCENT AUTO 8 % (4-13); Mean Corpuscular HGB 29.5 pg (26.0-34.0); Mean Corpuscular HGB Conc 34.2 g/dL (31.5-36.5); Mean Corpuscular Volume 86 fL (80-100); Mean Platelet Volume 11.2 fL (9.1-12.4); NEUTROPHILS PERCENT AUTO 65 % (41-73); Platelet Count 254 K/mm3 (150-400); RDW Coefficient Variation 13.8 % (11.7-14.2); RDW Standard Deviation 43.6 fL (35.1-46.3); Red Blood Cell Count 4.31 M/mm3 (3.80-5.20); White Blood Cell Count 8.51 K/mm3 (4.00-11.30)
[2022-05-13 18:20] LABS: Albumin/Globulin Ratio 1.3 (0.8-1.8); Bilirubin, Total 0.3 mg/dL (0.1-1.0); Bun/Creatinine Ratio 27.2 (12.0-20.0); Calcium, Blood 9.5 mg/dL (8.5-10.1); Creatinine, Blood 0.99 mg/dL (0.40-1.00); Free Thyroxine 1.02 ng/dL (0.70-1.60); Potassium, Blood 3.7 mmol/L (3.5-5.5); Thyroid Stimulating Hormone 2.48 uIU/mL (0.360-4.800); Triiodothyronine, Free 2.42 pg/mL (2.18-3.98)
[2022-05-14 10:54] LABS: Candida species (DNA Probe) Negative (NEGATIVE); G. vaginalis (DNA Probe) Positive (NEGATIVE); T. vaginalis (DNA Probe) Negative (NEGATIVE)
[2022-05-15 08:10] LABS: HBSAG SCREEN Negative (Negative); HCV ANTIBODY 0.1 (0.0-0.9); HIV AB/P24 AG SCREEN Non Reactive (Non Reactive)
[2022-05-16 19:07] LABS: CHLAMYDIA BY NAA Negative (Negative); GONOCOCCUS BY NAA Negative (Negative); TRICH VAG BY NAA Negative (Negative)
== END | disposition home or self-care (01) ==
LOC: LAB SHORT 15:15 → LAB FUT 08-13 07:50
PROVIDERS: Family Medicine; Registered Nurse Community Health
DX: Z11.3 Encounter for screening for infections with a predominantly sexual mode of transmission (principal); N89.8 Other specified noninflammatory disorders of vagina; J32.9 Chronic sinusitis, unspecified; R53.83 Other fatigue; Z20.2 Contact with and (suspected) exposure to infections with a predominantly sexual mode of transmission
CPT/HCPCS: 80053; 84439; 84443; 84481; 85025; 86592; 86803; 87340; 87389; 87480; 87510; 87660

== ENCOUNTER → 2022-05-29 | Outpatient (CLI) | payer MEDICARE, OTHER ==
[2022-05-29 17:58] LABS: International Normalized Ratio 2.11; Prothrombin Time Results 21.1 Sec (9.7-11.5)
== END ==
LOC: LAB SHORT 17:35
DX: Z51.81 Encounter for therapeutic drug level monitoring (principal); Z79.01 Long term (current) use of anticoagulants; Z95.2 Presence of prosthetic heart valve
CPT/HCPCS: 85610

== ENCOUNTER → 2022-05-30 | Outpatient (CLI) | payer MEDICARE, OTHER | END | disposition home or self-care (01) | LOC: LAB SHORT 17:50 → LAB 17:50 | DX: J02.9 Acute pharyngitis, unspecified (principal) | CPT/HCPCS: 87081 ==

== ENCOUNTER 2022-06-15 21:43 | Emergency (ER) | payer MEDICARE, OTHER ==
[~2022-06-15] VITALS: Ht 160 cm; Wt 78.9 kg
[~2022-06-15 21:43] MED LIST changes: +ACET500 PO; +ALBU8HFA2 INH; +B-12500 MC2 PO; +CO Q10100 MG PO; +Carisoprodol350 MG PO; +ENOX80I SC; -EUTHYROX88 MCG PO; +FAMC250 PO; +GABAPENTIN600 MG PO; +LEVSOD112 PO; +METO2.5 PO; +PROBIOTIC1 EA13 PO; +PSYSENPA PO; +Prozac20 MG PO; +XOPENEX HFA15 GM IH
[2022-06-15 22:15] LABS: BASOPHILS ABSOLUTE AUTO 0.09 K/mm3 (0.00-0.23); BASOPHILS PERCENT AUTO 1 % (0-2); EOSINOPHILS ABSOLUTE AUTO 0.48 K/mm3 (0.00-0.68); EOSINOPHILS PERCENT AUTO 5 % (0-6); Hematocrit 34.8 % (33.0-51.0); Hemoglobin 12.3 g/dL (11.5-16.0); IMMATURE GRAN ABSOLUTE AUTO 0.03 K/mm3 (0.00-0.10); IMMATURE GRAN PERCENT AUTO 0 % (0-1); LYMPHOCYTES ABSOLUTE AUTO 2.85 K/mm3 (0.84-5.20); LYMPHOCYTES PERCENT AUTO 30 % (21-46); MONOCYTES ABSOLUTE AUTO 0.92 K/mm3 (0.16-1.47); MONOCYTES PERCENT AUTO 10 % (4-13); Mean Corpuscular HGB 30.7 pg (26.0-34.0); Mean Corpuscular HGB Conc 35.3 g/dL (31.5-36.5); Mean Corpuscular Volume 87 fL (80-100); Mean Platelet Volume 10.3 fL (9.1-12.4); NEUTROPHILS ABSOLUTE AUTO 5.02 K/mm3 (1.96-9.15); NEUTROPHILS PERCENT AUTO 53 % (41-73); Platelet Count 320 K/mm3 (150-400); RDW Coefficient Variation 13.6 % (11.7-14.2); RDW Standard Deviation 42.7 fL (35.1-46.3); Red Blood Cell Count 4.01 M/mm3 (3.80-5.20); White Blood Cell Count 9.39 K/mm3 (4.00-11.30)
[2022-06-15 22:48] LABS: Albumin, Blood 3.8 g/dL (3.4-5.0); Albumin/Globulin Ratio 1.2 (0.8-1.8); Bilirubin, Total 0.3 mg/dL (0.1-1.0); Bun/Creatinine Ratio 29.6 (12.0-20.0); Calcium, Blood 9.3 mg/dL (8.5-10.1); Creatinine, Blood 1.52 mg/dL (0.40-1.00); Globulin, Blood 3.3 g/dL (2.2-4.0); Potassium, Blood 2.4 mmol/L (3.5-5.5); Total Protein, Blood 7.1 g/dL (6.4-8.2)
== END 2022-06-16 03:41 | disposition home or self-care (01) ==
LOC: ER 21:43
PROVIDERS: Student in an Organized Health Care Education/Training Program
DX: E87.6 Hypokalemia (principal); R07.89 Other chest pain; I50.9 Heart failure, unspecified; Z79.899 Other long term (current) drug therapy; Z88.8 Allergy status to other drugs, medicaments and biological substances; Z79.01 Long term (current) use of anticoagulants; Z79.82 Long term (current) use of aspirin
CPT/HCPCS: 36415; 80053; 84484; 85025; 93005; 93010; A9270; J3480; J7030

== ENCOUNTER 2022-06-16 14:00 | Emergency (ER) | payer MEDICARE, OTHER ==
[~2022-06-16] VITALS: Ht 160 cm; Wt 78.6 kg
[2022-06-16 15:11] LABS: BASOPHILS ABSOLUTE AUTO 0.12 K/mm3 (0.00-0.23); BASOPHILS PERCENT AUTO 2 % (0-2); EOSINOPHILS ABSOLUTE AUTO 0.45 K/mm3 (0.00-0.68); EOSINOPHILS PERCENT AUTO 6 % (0-6); Hematocrit 37.1 % (33.0-51.0); Hemoglobin 12.3 g/dL (11.5-16.0); IMMATURE GRAN ABSOLUTE AUTO 0.05 K/mm3 (0.00-0.10); IMMATURE GRAN PERCENT AUTO 1 % (0-1); LYMPHOCYTES ABSOLUTE AUTO 2.47 K/mm3 (0.84-5.20); LYMPHOCYTES PERCENT AUTO 31 % (21-46); MONOCYTES ABSOLUTE AUTO 0.82 K/mm3 (0.16-1.47); MONOCYTES PERCENT AUTO 10 % (4-13); Mean Corpuscular HGB 29.9 pg (26.0-34.0); Mean Corpuscular HGB Conc 33.2 g/dL (31.5-36.5); Mean Corpuscular Volume 90 fL (80-100); Mean Platelet Volume 10.2 fL (9.1-12.4); NEUTROPHILS ABSOLUTE AUTO 4.12 K/mm3 (1.96-9.15); NEUTROPHILS PERCENT AUTO 51 % (41-73); Platelet Count 307 K/mm3 (150-400); RDW Coefficient Variation 14.2 % (11.7-14.2); RDW Standard Deviation 46.6 fL (35.1-46.3); Red Blood Cell Count 4.11 M/mm3 (3.80-5.20); White Blood Cell Count 8.03 K/mm3 (4.00-11.30)
[2022-06-16 15:40] LABS: Magnesium, Blood 2.5 mg/dL (1.6-2.4)
[2022-06-16 15:58] LABS: Albumin, Blood 3.9 g/dL (3.4-5.0); Albumin/Globulin Ratio 1.1 (0.8-1.8); Bilirubin, Total 0.2 mg/dL (0.1-1.0); Bun/Creatinine Ratio 22.9 (12.0-20.0); Calcium, Blood 9.2 mg/dL (8.5-10.1); Creatinine, Blood 1.05 mg/dL (0.40-1.00); Globulin, Blood 3.6 g/dL (2.2-4.0); Potassium, Blood 3.3 mmol/L (3.5-5.5); Total Protein, Blood 7.5 g/dL (6.4-8.2)
== END 2022-06-16 19:10 | disposition home or self-care (01) ==
LOC: ER 14:00
PROVIDERS: Physician Assistant
DX: F41.9 Anxiety disorder, unspecified (principal); R07.9 Chest pain, unspecified; M62.838 Other muscle spasm; E87.6 Hypokalemia; I50.9 Heart failure, unspecified; Z88.8 Allergy status to other drugs, medicaments and biological substances; Z79.899 Other long term (current) drug therapy; Z79.01 Long term (current) use of anticoagulants
CPT/HCPCS: 36415; 80053; 83735; 84484; 85025; A9270; J1885

== ENCOUNTER → 2022-06-18 | Outpatient (CLI) | payer MEDICARE, OTHER ==
[2022-06-18 21:46] LABS: Bun/Creatinine Ratio 35.2 (12.0-20.0); Calcium, Blood 9.3 mg/dL (8.5-10.1); Creatinine, Blood 1.28 mg/dL (0.40-1.00); Magnesium, Blood 2.6 mg/dL (1.6-2.4); Potassium, Blood 2.7 mmol/L (3.5-5.5); Thyroid Stimulating Hormone 1.66 uIU/mL (0.360-4.800)
== END | disposition home or self-care (01) ==
LOC: LAB SHORT 16:15 → LAB 16:15
PROVIDERS: Nurse Practitioner Family
DX: E03.9 Hypothyroidism, unspecified (principal); I50.9 Heart failure, unspecified; E83.42 Hypomagnesemia; E87.6 Hypokalemia; R60.9 Edema, unspecified
CPT/HCPCS: 80048; 83735; 84443; 84484

== ENCOUNTER → 2022-06-20 | Outpatient (CLI) | payer MEDICARE, OTHER ==
[~2022-06-20] MED LIST changes: +BENZ2 PO; +CLON1 PO
[2022-06-20 15:48] LABS: International Normalized Ratio 2.71; Prothrombin Time Results 26.7 Sec (9.7-11.5)
[2022-06-20 15:50] LABS: Bun/Creatinine Ratio 28.2 (12.0-20.0); Calcium, Blood 9.7 mg/dL (8.5-10.1); Creatinine, Blood 1.63 mg/dL (0.40-1.00); Potassium, Blood 2.9 mmol/L (3.5-5.5)
== END | disposition home or self-care (01) ==
LOC: LAB SHORT 15:24 → LAB 15:24
PROVIDERS: Nurse Practitioner Family
DX: Z79.01 Long term (current) use of anticoagulants (principal); Z51.81 Encounter for therapeutic drug level monitoring; E87.6 Hypokalemia; I50.9 Heart failure, unspecified; Z95.2 Presence of prosthetic heart valve
CPT/HCPCS: 80048; 84484; 85610

== ENCOUNTER 2023-06-21 01:11 | Observation (INO) | payer MEDICARE, OTHER ==
[~2023-06-21] VITALS: Ht 162.6 cm; Wt 73.9 kg
[2023-06-21 01:56] LABS: BASOPHILS ABSOLUTE AUTO 0.07 K/mm3 (0.00-0.23); BASOPHILS PERCENT AUTO 1 % (0-2); EOSINOPHILS ABSOLUTE AUTO 0.19 K/mm3 (0.00-0.68); EOSINOPHILS PERCENT AUTO 2 % (0-6); Hematocrit 39.2 % (33.0-51.0); Hemoglobin 13.4 g/dL (11.5-16.0); IMMATURE GRAN ABSOLUTE AUTO 0.04 K/mm3 (0.00-0.10); IMMATURE GRAN PERCENT AUTO 0 % (0-1); LYMPHOCYTES ABSOLUTE AUTO 1.58 K/mm3 (0.84-5.20); LYMPHOCYTES PERCENT AUTO 15 % (21-46); MONOCYTES ABSOLUTE AUTO 1.06 K/mm3 (0.16-1.47); MONOCYTES PERCENT AUTO 10 % (4-13); Mean Corpuscular HGB 30.2 pg (26.0-34.0); Mean Corpuscular HGB Conc 34.2 g/dL (31.5-36.5); Mean Corpuscular Volume 88 fL (80-100); Mean Platelet Volume 10.5 fL (9.1-12.4); NEUTROPHILS ABSOLUTE AUTO 7.96 K/mm3 (1.96-9.15); NEUTROPHILS PERCENT AUTO 73 % (41-73); Platelet Count 225 K/mm3 (150-400); RDW Coefficient Variation 13.1 % (11.7-14.2); Red Blood Cell Count 4.44 M/mm3 (3.80-5.20)
[2023-06-21 02:03] LABS: D-Dimer, Quantitative 0.63 mg/L FEU (0.00-0.52)
[2023-06-21 02:11] LABS: Albumin, Blood 4.3 g/dL (3.4-5.0); Albumin/Globulin Ratio 1.2 (0.8-1.8); Bilirubin, Total 0.4 mg/dL (0.1-1.0); Calcium, Blood 9.4 mg/dL (8.5-10.1); Creatinine, Blood 1.18 mg/dL (0.40-1.00); Globulin, Blood 3.6 g/dL (2.2-4.0); Potassium, Blood 3.6 mmol/L (3.5-5.5); Total Protein, Blood 7.9 g/dL (6.4-8.2)
[2023-06-21] MEDS ORDERED: Methocarbamol750 MG PO ×2 (02:32)
[2023-06-21] MEDS ORDERED: ZANAFLEX413 PO (02:33)
[2023-06-21] MEDS ORDERED: EUTHYROX75 MC1 PO ×2 (02:33)
[2023-06-21] MEDS ORDERED: METOPROLOL TART25 MG PO ×2 (02:35)
[2023-06-21 02:43] LABS: Magnesium, Blood 2.7 mg/dL (1.6-2.4)
[2023-06-21 04:02] LABS: International Normalized Ratio 1.74; Prothrombin Time Results 17.7 Sec (9.7-11.5)
[2023-06-21 04:08] LABS: SARS-Cov-2 (COVID-19) PCR, MMC NEGATIVE (NEGATIVE)
[2023-06-21 04:18] LABS: Influenza A Negative (NEGATIVE); Influenza B Negative (NEGATIVE)
[2023-06-21] MEDS ORDERED: LIDOCAINE1 EACH TOP ×2 (04:33)
[2023-06-21] MEDS ORDERED: D RIBOSE PO ×2 (04:37)
[2023-06-21] MEDS ORDERED: VITAMIN D5000 UNIT PO ×2 (04:39)
[2023-06-21] MEDS ORDERED: [UNRECOGNIZED DRUG - CODE] PO ×2 (04:41)
[2023-06-21] MEDS ORDERED: ASHWAGANDHA300 MG PO ×2 (04:42)
[2023-06-21] MEDS ORDERED: POLY500 ×2 (04:42)
[2023-06-21] MEDS ORDERED: MULVITA PO ×2 (04:43)
[2023-06-21] MEDS ORDERED: L-Lysine500 M1 PO ×2 (04:43)
[2023-06-21] MEDS ORDERED: C COMPLEX1000 M1 PO ×2 (04:44)
[2023-06-21] MEDS ORDERED: XYZAL5 MG PO ×2 (04:45)
[2023-06-21 06:53] VITALS: BP 114/47
[2023-06-21 07:15] VITALS: BP 112/65
[2023-06-21 07:54] LABS: Source, Urine Clean Catch
[2023-06-21 08:03] LABS: Candida species (DNA Probe) Negative (NEGATIVE); G. vaginalis (DNA Probe) Negative (NEGATIVE); T. vaginalis (DNA Probe) Negative (NEGATIVE)
[2023-06-21 08:57] LABS: Bilirubin, Urine Neg (Neg); Blood, Urine 1+ (Neg); Glucose Qualitative, Urine Neg (Neg); Ketones, Urine Neg (Neg); Leukocyte Esterase, Urine 3+ (Neg); Nitrite, Urine Neg (Neg); Protein, Urine Neg (Neg); Urobilinogen, Urine NORM (Normal)
[2023-06-21 10:00] LABS: Appearance, Urine Clear (Clear); Color, Urine Yellow (P-Yellow)
[2023-06-21] MEDS ORDERED: METO5A PO ×2 (10:28)
--- NOTE | 2023-06-21 10:30 | NUR ---
DISCHARGE SUMMARY PATIENT AOX4. VSS. PT ABLE TO COMMUNITE NEEDS EFFECTIVELY AND OBEYS COMMANDS. SPO2>92% ON RA, BREATHING EVEN AND NON LABORED, NADN. PT EDUCATED ON DISCHARGE INSTRUCTIONS AND MEDICATIONS. PT VERBALIZES UNDERSTANDING AND QUESTIONS WERE ANSWERED. PT REPORTS NO FURTHER QUESTIONS. PT INDEPENDENTLY AMBULATED DISCHARGED FROM UNIT WITH BELONGINGS ACCOMPANIED BY SPOUSE.
[2023-06-21 11:12] LABS: Bacteria Mod /hpf; Red Blood Cells, Urine 0-2 /hpf (0-2); Squamous Epithelial Cells Many /hpf (Few)
[2023-06-21 11:13] LABS: Mucus Light (0-Heavy)
[2023-06-24 01:43] LABS: APTIMA MEDIA TYPE Urine; C. TRACHOMATIS BY TMA Negative (Negative); N. GONORRHOEAE BY TMA Negative (Negative); SPECIMEN SOURCE Urine
== END 2023-06-21 10:55 | disposition home or self-care (01) ==
LOC: ER 01:11 → ERHOLD 04:36 → EDBEDREQSVC 04:38 → EDBEDREQ 04:40 → PCU 07:15
PROVIDERS: Student in an Organized Health Care Education/Training Program; ADMIT Internal Medicine
DX: I42.2 Other hypertrophic cardiomyopathy (principal); R79.89 Other specified abnormal findings of blood chemistry; K44.9 Diaphragmatic hernia without obstruction or gangrene; F41.9 Anxiety disorder, unspecified; N18.31 Chronic kidney disease, stage 3a; F32.9 Major depressive disorder, single episode, unspecified; E06.3 Autoimmune thyroiditis; I25.2 Old myocardial infarction; Z59.02 Unsheltered homelessness; Z79.01 Long term (current) use of anticoagulants; Z79.899 Other long term (current) drug therapy; Z95.810 Presence of automatic (implantable) cardiac defibrillator
CPT/HCPCS: 36415; 71045; 71260; 76705; 80053; 81001; 83690; 83735; 84484; 85025; 85379; 85520; 85610; 85730; 87086; 87147; 87480; 87491; 87510; 87591; 87660; 87804; 87807; 93005; 93010; 96360-59; 96361; 99285-25; A9270; G0378; J1644; J7030; Q9967; U0002

== ENCOUNTER → 2023-06-22 | Outpatient (CLI) | payer MEDICARE, OTHER ==
[~2023-06-22] MED LIST changes: +AMOX500 PO; +ASHWAGANDHA300 MG PO; +C COMPLEX1000 M1 PO; +D RIBOSE PO; +EUTHYROX75 MC1 PO; +L-Lysine500 M1 PO; +LIDOCAINE1 EACH TOP; +METO5A PO; +MULVITA PO; +Methocarbamol750 MG PO; +POLY500; +VITAMIN D5000 UNIT PO; +ZANAFLEX413 PO; +[UNRECOGNIZED DRUG - CODE] PO
[2023-06-24 18:16] LABS: HEPATITIS B SURFACE ANTIBODY <3.10 IU/L
[2023-06-24 18:55] LABS: HEPATITIS A ANTIBODIES, TOTAL Negative (Negative)
[2023-06-25 08:59] LABS: C. TRACHOMATIS BY TMA Negative (Negative); N. GONORRHOEAE BY TMA Negative (Negative); SPECIMEN SOURCE Not Provided; T. VAGINALIS BY TMA Negative (Negative)
[2023-06-25 10:06] LABS: HEPATITIS C AB CIA INTERP Negative (Negative); HEPATITIS C ANTIBODY CIA INDEX 0.07 IV
[2023-06-25 14:11] LABS: HIV 1,2 COMBO ANTIGEN/ANTIBODY Negative (Negative)
[2023-06-26 05:09] LABS: HSV 1 SUBTYPE BY PCR Not Detected; HSV 2 SUBTYPE BY PCR Detected; HSV SUBTYPE SOURCE Swab
[2023-06-26 11:43] LABS: APTIMA MEDIA TYPE Unisex Swab
== END | disposition home or self-care (01) ==
LOC: LAB SHORT 18:46 → LAB 18:46
PROVIDERS: Registered Nurse Community Health
DX: Z11.59 Encounter for screening for other viral diseases (principal); N94.9 Unspecified condition associated with female genital organs and menstrual cycle
CPT/HCPCS: 86592; 86708; 86803; 87070; 87077; 87147; 87186; 87205; 87389; 87491; 87529; 87591; 87661

== ENCOUNTER 2023-06-23 09:58 | Emergency (ER) | payer MEDICARE, OTHER ==
[~2023-06-23] VITALS: Ht 160 cm; Wt 75.8 kg
[~2023-06-23 09:58] MED LIST changes: -AMOX500 PO
[2023-06-23 10:37] LABS: BASOPHILS ABSOLUTE AUTO 0.08 K/mm3 (0.00-0.23); BASOPHILS PERCENT AUTO 1 % (0-2); EOSINOPHILS ABSOLUTE AUTO 0.33 K/mm3 (0.00-0.68); EOSINOPHILS PERCENT AUTO 4 % (0-6); Hematocrit 40.2 % (33.0-51.0); Hemoglobin 13.8 g/dL (11.5-16.0); IMMATURE GRAN ABSOLUTE AUTO 0.05 K/mm3 (0.00-0.10); IMMATURE GRAN PERCENT AUTO 1 % (0-1); LYMPHOCYTES ABSOLUTE AUTO 1.66 K/mm3 (0.84-5.20); LYMPHOCYTES PERCENT AUTO 20 % (21-46); MONOCYTES ABSOLUTE AUTO 0.84 K/mm3 (0.16-1.47); MONOCYTES PERCENT AUTO 10 % (4-13); Mean Corpuscular HGB 30.3 pg (26.0-34.0); Mean Corpuscular HGB Conc 34.3 g/dL (31.5-36.5); Mean Corpuscular Volume 88 fL (80-100); Mean Platelet Volume 10.3 fL (9.1-12.4); NEUTROPHILS PERCENT AUTO 65 % (41-73); Platelet Count 246 K/mm3 (150-400); RDW Coefficient Variation 13.3 % (11.7-14.2); RDW Standard Deviation 43.2 fL (35.1-46.3); Red Blood Cell Count 4.56 M/mm3 (3.80-5.20); White Blood Cell Count 8.36 K/mm3 (4.00-11.30)
[2023-06-23 11:04] LABS: Albumin, Blood 4.3 g/dL (3.4-5.0); Albumin/Globulin Ratio 1.1 (0.8-1.8); Bilirubin, Total 0.3 mg/dL (0.1-1.0); Bun/Creatinine Ratio 25.7 (12.0-20.0); Calcium, Blood 9.8 mg/dL (8.5-10.1); Creatinine, Blood 1.13 mg/dL (0.40-1.00); Globulin, Blood 3.9 g/dL (2.2-4.0); Potassium, Blood 3.6 mmol/L (3.5-5.5); Total Protein, Blood 8.2 g/dL (6.4-8.2)
[2023-06-23 11:33] LABS: International Normalized Ratio 2.2; Prothrombin Time Results 22.1 Sec (9.7-11.5)
[2023-06-23] MEDS ORDERED: AMOX500 PO (14:40)
[2023-06-23 15:05] VITALS: BP 100/60
== END 2023-06-23 15:05 | disposition home or self-care (01) ==
LOC: ER 09:58
PROVIDERS: Physician Assistant; Student in an Organized Health Care Education/Training Program
DX: R07.9 Chest pain, unspecified (principal); R79.89 Other specified abnormal findings of blood chemistry; N39.0 Urinary tract infection, site not specified; I50.9 Heart failure, unspecified; Z79.890 Hormone replacement therapy; Z79.01 Long term (current) use of anticoagulants; Z79.899 Other long term (current) drug therapy; Z88.8 Allergy status to other drugs, medicaments and biological substances; I25.2 Old myocardial infarction; Z95.0 Presence of cardiac pacemaker; Z95.2 Presence of prosthetic heart valve; Z59.02 Unsheltered homelessness
CPT/HCPCS: 71046; 80053; 83690; 84484; 85025; 85610; 93005; 93010; 93242; 96374; 99284-25; A9270; J1790

== ENCOUNTER 2023-06-27 19:46 | Emergency (ER) | payer MEDICARE, OTHER ==
[~2023-06-27] VITALS: Ht 160 cm; Wt 72.6 kg
[~2023-06-27 19:46] MED LIST changes: +AMOX500 PO
[2023-06-27 20:12] LABS: BASOPHILS ABSOLUTE AUTO 0.07 K/mm3 (0.00-0.23); BASOPHILS PERCENT AUTO 1 % (0-2); EOSINOPHILS ABSOLUTE AUTO 0.42 K/mm3 (0.00-0.68); EOSINOPHILS PERCENT AUTO 5 % (0-6); Hemoglobin 13.8 g/dL (11.5-16.0); IMMATURE GRAN ABSOLUTE AUTO 0.06 K/mm3 (0.00-0.10); IMMATURE GRAN PERCENT AUTO 1 % (0-1); LYMPHOCYTES ABSOLUTE AUTO 2.77 K/mm3 (0.84-5.20); LYMPHOCYTES PERCENT AUTO 35 % (21-46); MONOCYTES ABSOLUTE AUTO 0.91 K/mm3 (0.16-1.47); MONOCYTES PERCENT AUTO 11 % (4-13); Mean Corpuscular HGB 30.3 pg (26.0-34.0); Mean Corpuscular HGB Conc 34.5 g/dL (31.5-36.5); Mean Corpuscular Volume 88 fL (80-100); Mean Platelet Volume 9.9 fL (9.1-12.4); NEUTROPHILS ABSOLUTE AUTO 3.76 K/mm3 (1.96-9.15); NEUTROPHILS PERCENT AUTO 47 % (41-73); Platelet Count 319 K/mm3 (150-400); RDW Coefficient Variation 13.2 % (11.7-14.2); Red Blood Cell Count 4.56 M/mm3 (3.80-5.20); White Blood Cell Count 7.99 K/mm3 (4.00-11.30)
[2023-06-27 20:33] LABS: Albumin, Blood 4.3 g/dL (3.4-5.0); Albumin/Globulin Ratio 1.2 (0.8-1.8); Bilirubin, Total 0.4 mg/dL (0.1-1.0); Bun/Creatinine Ratio 30.8 (12.0-20.0); Calcium, Blood 9.2 mg/dL (8.5-10.1); Creatinine, Blood 1.07 mg/dL (0.40-1.00); Globulin, Blood 3.6 g/dL (2.2-4.0); Potassium, Blood 3.7 mmol/L (3.5-5.5); Total Protein, Blood 7.9 g/dL (6.4-8.2)
[2023-06-27 23:36] VITALS: BP 102/78
== END 2023-06-27 23:30 | disposition home or self-care (01) ==
LOC: ER 19:46
PROVIDERS: Emergency Medicine
DX: S29.011A Strain of muscle and tendon of front wall of thorax, initial encounter (principal); I50.9 Heart failure, unspecified; I25.2 Old myocardial infarction; I42.9 Cardiomyopathy, unspecified; Z95.0 Presence of cardiac pacemaker; Z86.79 Personal history of other diseases of the circulatory system; Z79.01 Long term (current) use of anticoagulants; Z79.899 Other long term (current) drug therapy; Z88.4 Allergy status to anesthetic agent; Z88.8 Allergy status to other drugs, medicaments and biological substances; X58.XXXA Exposure to other specified factors, initial encounter
CPT/HCPCS: 76705; 80053; 83690; 85025; 93005; 93010; 99284-25

== ENCOUNTER 2023-07-08 04:40 | Observation (INO) | payer MEDICARE, OTHER ==
[~2023-07-08] VITALS: Ht 160 cm; Wt 75.6 kg
[2023-07-08 05:33] LABS: BASOPHILS ABSOLUTE AUTO 0.07 K/mm3 (0.00-0.23); BASOPHILS PERCENT AUTO 1 % (0-2); EOSINOPHILS ABSOLUTE AUTO 0.38 K/mm3 (0.00-0.68); EOSINOPHILS PERCENT AUTO 6 % (0-6); Hematocrit 34.9 % (33.0-51.0); IMMATURE GRAN ABSOLUTE AUTO 0.03 K/mm3 (0.00-0.10); IMMATURE GRAN PERCENT AUTO 1 % (0-1); LYMPHOCYTES ABSOLUTE AUTO 2.17 K/mm3 (0.84-5.20); LYMPHOCYTES PERCENT AUTO 33 % (21-46); MONOCYTES ABSOLUTE AUTO 0.68 K/mm3 (0.16-1.47); MONOCYTES PERCENT AUTO 10 % (4-13); Mean Corpuscular HGB 30.6 pg (26.0-34.0); Mean Corpuscular HGB Conc 34.4 g/dL (31.5-36.5); Mean Corpuscular Volume 89 fL (80-100); Mean Platelet Volume 10.1 fL (9.1-12.4); NEUTROPHILS ABSOLUTE AUTO 3.26 K/mm3 (1.96-9.15); NEUTROPHILS PERCENT AUTO 49 % (41-73); Platelet Count 247 K/mm3 (150-400); RDW Coefficient Variation 13.8 % (11.7-14.2); RDW Standard Deviation 44.8 fL (35.1-46.3); Red Blood Cell Count 3.92 M/mm3 (3.80-5.20); White Blood Cell Count 6.59 K/mm3 (4.00-11.30)
[2023-07-08 05:55] LABS: Albumin, Blood 3.9 g/dL (3.4-5.0); Albumin/Globulin Ratio 1.2 (0.8-1.8); Bilirubin, Total 0.5 mg/dL (0.1-1.0); Bun/Creatinine Ratio 23.3 (12.0-20.0); Calcium, Blood 9.4 mg/dL (8.5-10.1); Creatinine, Blood 0.99 mg/dL (0.40-1.00); Globulin, Blood 3.3 g/dL (2.2-4.0); Potassium, Blood 3.4 mmol/L (3.5-5.5); Total Protein, Blood 7.2 g/dL (6.4-8.2)
[2023-07-08] MEDS ORDERED: Aspirin 81 MG Chew PO ONE (06:10)
[2023-07-08 06:33] LABS: Magnesium, Blood 2.5 mg/dL (1.6-2.4)
[2023-07-08] MEDS ORDERED: NS 1,000 ML IV SCH (06:45)
[2023-07-08] MEDS ORDERED: Potassium Chloride 20 MEQ TabCR PO ONE (06:50)
[2023-07-08 07:04] LABS: Source, Urine Clean Catch
[2023-07-08 07:12] LABS: Appearance, Urine Clear (Clear); Bilirubin, Urine Neg (Neg); Blood, Urine Neg (Neg); Color, Urine Yellow (P-Yellow); Glucose Qualitative, Urine Neg (Neg); Ketones, Urine Neg (Neg); Leukocyte Esterase, Urine Neg (Neg); Nitrite, Urine Neg (Neg); Protein, Urine 1+ (Neg); Specific Gravity, Urine 1.025 (1.003-1.022); Urobilinogen, Urine NORM (Normal)
[2023-07-08 07:28] LABS: International Normalized Ratio 1.94; Prothrombin Time Results 19.6 Sec (9.7-11.5)
[2023-07-08] MEDS ORDERED: Albuterol 2.5 MG/3 ML VIAL INH PRN (07:40)
[2023-07-08] MEDS ORDERED: FLU VACC QS2023-24(6MOS UP)/PF 60 MCG/0.5 ML SYRINGE IM SCH (07:45)
[2023-07-08] MEDS ORDERED: Ondansetron HCl 2 MG / ML 2ML Vial IV PRN (07:45)
[2023-07-08] MEDS ORDERED: Acetaminophen 325 MG TABLET PO PRN (07:45)
[2023-07-08 08:04] LABS: Adenovirus Not Detected (NOT DETECT); Coronavirus 229E Not Detected (NOT DETECT); Coronavirus HKU1 Not Detected (NOT DETECT); Coronavirus NL63 Not Detected (NOT DETECT); Coronavirus OC43 Not Detected (NOT DETECT); Human Metapneumovirus Not Detected (NOT DETECT); Human Rhinovirus/Enterovirus Not Detected (NOT DETECT); Influenza A/2009-H1 Not Detected (NOT DETECT); Influenza A/H1 Not Detected (NOT DETECT); Influenza A/H3 Not Detected (NOT DETECT); Influenza B Not Detected (NOT DETECT); Parainfluenza Virus 1 Not Detected (NOT DETECT); Parainfluenza Virus 2 Not Detected (NOT DETECT); Parainfluenza Virus 3 Not Detected (NOT DETECT); SARS-Cov-2 (COVID-19), BioFire Not Detected (NOT DETECT)
[2023-07-08 08:05] LABS: Bordetella pertussis Not Detected (NOT DETECT); Chlamydophila pneumoniae Not Detected (NOT DETECT); Mycoplasma pneumoniae Not Detected (NOT DETECT); Parainfluenza Virus 4 Not Detected (NOT DETECT); Respiratory Syncytial Virus Not Detected (NOT DETECT)
[2023-07-08] MEDS ORDERED: Aspirin 81 MG Chew PO SCH (09:00)
[2023-07-08] MEDS ORDERED: Docusate Sodium 100 MG Cap PO SCH (09:00)
[2023-07-08 10:18] VITALS: BP 116/68
[2023-07-08] MEDS ORDERED: HyDROXyzine HCl 25 MG Tab PO PRN (10:25)
[2023-07-08] MEDS ORDERED: Torsemide 20 MG TAB PO PRN (10:30)
[2023-07-08] MEDS ORDERED: Metoprolol Tartrate 25 MG Tab PO SCH ×2 (11:05→21:00)
[2023-07-08] MEDS ORDERED: Gabapentin 100 MG Cap PO SCH ×2 (11:05→14:00)
[2023-07-08] MEDS ORDERED: Spironolactone 25 MG Tab PO SCH (11:05)
[2023-07-08] MEDS ORDERED: Levothyroxine Sodium 0.075 MG Tab PO SCH (11:05)
[2023-07-08] MEDS ORDERED: Lidocaine 4% 1 Patch TOP SCH ×3 (11:45→21:00)
[2023-07-08] MEDS ORDERED: Acetaminophen/Aspirin/Caffeine 250/250/65 MG PO PRN (16:05)
[2023-07-08 16:06] VITALS: BP 110/58
[2023-07-08] MEDS ORDERED: Warfarin Sodium 7.5 MG Tab PO ONE (18:00)
--- NOTE | 2023-07-08 18:15 | NUR ---
SHIFT SUMMARY: PT IS A 48 YEAR OLD FEMALE HERE ADMITTED FOR C/O CHEST PAIN AND HAVING POSITIVE TROPONIN LEVELS; SHE HAS A CARDIAC HISTORY. SHE HAS NOT COMPLAINED OF CHEST PAIN SINCE THE ER AND HASN'T DISPLAYED ANY SIGNS OR SYMPTOMS OF DISTRESS. SHE IS ALERT AND ORIENTED X4 AND INDEPENDENT. SHE HAD AN ECHO TODAY; RESULTS STILL PENDING. SHE IS IN BED, AT BEDSIDE, CALL LIGHT WITHIN REACH, NO SIGNS OR SYMPTOMS OF DISTRESS. PLAN OF CARE ONGOING.
[2023-07-08 19:17] VITALS: BP 119/59
[2023-07-08] MEDS ORDERED: Acyclovir 400 MG Tab PO SCH (21:00)
[2023-07-09 04:28] VITALS: BP 124/64
--- NOTE | 2023-07-09 04:59 | NUR ---
Shift Summary Patient is alert and oriented x 4. Respirations regular and unlabored. Lung sounds clear. Skin warm and dry. She is on Tele and her rythm is A-paced at 65. She has an IV in her left arm that is saline locked. It flushes without difficulty. She is ambulatory in the room and her is present. She is anxious. Asks for several medications then would decide that she did not want them. She asked why her medications are not like they were at home. I explained that in the hospital they may not be the same. I encouraged her to discuss any concerns regarding meds that she wants with her doctor when he makes rounds so he can explain why they may be contraindicated at this time. Also complained of a headache and not feeling good over all. PRN pain med was given and was effective. Complained of nausea but refused Zofran. Patient is aware of NPO status for stress test. Asked if she had been on Aggrenox or Dipyridamole per MD instruction. Patient denied being on either.
[2023-07-09 05:00] LABS: BASOPHILS ABSOLUTE AUTO 0.06 K/mm3 (0.00-0.23); BASOPHILS PERCENT AUTO 1 % (0-2); EOSINOPHILS ABSOLUTE AUTO 0.47 K/mm3 (0.00-0.68); EOSINOPHILS PERCENT AUTO 7 % (0-6); Hematocrit 35.1 % (33.0-51.0); Hemoglobin 11.6 g/dL (11.5-16.0); IMMATURE GRAN ABSOLUTE AUTO 0.03 K/mm3 (0.00-0.10); IMMATURE GRAN PERCENT AUTO 1 % (0-1); LYMPHOCYTES ABSOLUTE AUTO 2.54 K/mm3 (0.84-5.20); LYMPHOCYTES PERCENT AUTO 39 % (21-46); MONOCYTES ABSOLUTE AUTO 0.52 K/mm3 (0.16-1.47); MONOCYTES PERCENT AUTO 8 % (4-13); Mean Corpuscular HGB 29.9 pg (26.0-34.0); Mean Corpuscular Volume 91 fL (80-100); Mean Platelet Volume 10.5 fL (9.1-12.4); NEUTROPHILS ABSOLUTE AUTO 2.87 K/mm3 (1.96-9.15); NEUTROPHILS PERCENT AUTO 44 % (41-73); Platelet Count 246 K/mm3 (150-400); RDW Coefficient Variation 14.1 % (11.7-14.2); Red Blood Cell Count 3.88 M/mm3 (3.80-5.20); White Blood Cell Count 6.49 K/mm3 (4.00-11.30)
[2023-07-09 05:16] LABS: International Normalized Ratio 1.59; Prothrombin Time Results 16.3 Sec (9.7-11.5)
[2023-07-09 05:33] LABS: Magnesium, Blood 2.6 mg/dL (1.6-2.4)
[2023-07-09 05:34] LABS: Albumin, Blood 3.6 g/dL (3.4-5.0); Albumin/Globulin Ratio 1.2 (0.8-1.8); Bilirubin, Total 0.4 mg/dL (0.1-1.0); Bun/Creatinine Ratio 22.5 (12.0-20.0); Creatinine, Blood 0.93 mg/dL (0.40-1.00); Potassium, Blood 3.6 mmol/L (3.5-5.5); Total Protein, Blood 6.6 g/dL (6.4-8.2)
[2023-07-09 07:30] VITALS: BP 119/63
[2023-07-09] MEDS ORDERED: Lactobacil 2-S.Thermo-Bifido 1 1 Cap PO SCH (09:00)
[2023-07-09] MEDS ORDERED: Cholecalciferol 1000 Unit Tablet (=25MCG) PO SCH (09:00)
[2023-07-09] MEDS ORDERED: Enoxaparin 40 MG/0.4 ML SYR SC SCH (09:00)
[2023-07-09] MEDS ORDERED: Famotidine 20 MG Tab PO SCH (09:00)
[2023-07-09] MEDS ORDERED: Levothyroxine Sodium 0.075 MG Tab PO SCH (09:00)
[2023-07-09] MEDS ORDERED: Spironolactone 25 MG Tab PO SCH (09:00)
[2023-07-09] MEDS ORDERED: Robaxin750 MG PO (09:29)
[2023-07-09] MEDS ORDERED: METR500 PO (09:30)
[2023-07-09] MEDS ORDERED: MELATONIN5 M1 PO (09:32)
[2023-07-09] MEDS ORDERED: MINIPRESS2 M1 PO (09:32)
--- NOTE | 2023-07-09 11:08 | NUR ---
Patient is lying in bed and alert. She is immediately tearful as she tells me about her medical problems, her housing insecurity and her family unit complications. We explore possible steps of reconciliation, healthier ways to frame her situation and her Hindu belief system. I normalize her feelings and fears, and provide therapeutic listening, gentle deputy general counsel and prayer. Patient showed signs of greater hope and inner peace.
[2023-07-09] MEDS ORDERED: Melatonin 5 MG Tablet PO PRN (12:10)
[2023-07-09] MEDS ORDERED: Methocarbamol 500 MG Tab PO PRN (12:15)
[2023-07-09] MEDS ORDERED: Prazosin HCl 1 MG Cap PO PRN (12:15)
[2023-07-09] MEDS ORDERED: Calcium Carbonate 500 MG Tab Chew PO PRN (12:15)
[2023-07-09] MEDS ORDERED: ClonazePAM 0.5 MG Tab PO PRN (12:15)
[2023-07-09] MEDS ORDERED: ACYCLOVIR400 MG PO (12:37)
[2023-07-09] MEDS ORDERED: LIDOCAINE1 EACH TD (12:40)
[2023-07-09] MEDS ORDERED: POTCHL20ER PO (12:40)
[2023-07-09] MEDS ORDERED: Caffeine Citrated 60 MG/3 ML Vial ONE (13:34)
[2023-07-09] MEDS ORDERED: Regadenoson 0.4 MG/5 ML SYRINGE ONE (13:35)
[2023-07-09] MEDS ORDERED: Amoxicillin 500 MG Cap PO SCH (15:00)
[2023-07-09 15:41] VITALS: BP 126/62
[2023-07-09] MEDS ORDERED: Warfarin Sodium 7.5 MG Tab PO SCH (18:00)
--- NOTE | 2023-07-09 18:46 | NUR ---
SHIFT SUMMARY: NO EVENTS OR CHANGES WITH THE PATIENT DURING THE SHIFT. SHE HAS VOICED MULTIPLE COMPLAINTS ABOUT HER MEDICATIONS AND WHAT IS BEING ORDER. HER MEDICATION LIST HAS BEEN REVIEW AND ADVISED MULTIPLE TIMES BY DIFFERENT STAFF; INCLUDING MY SELF, CHARGE NURSE, AND CLINICAL COORDINATOR RN. SHE SPOKE WITH THE CLINICAL COORDINATOR, ADA, MYSELF, AND THE DOCTOR TODAY ABOUT HER CONCERNS/CARE. SHE COMPLETED HER STRESS TEST TODAY AND RESULTS ARE IN; NOTIFIED DR. DEMPSEY. SHE IS EATING AND DRINKING WITHOUT DIFFICULTY; BESIDES WHEN SHE VOICES HAVING AN ESOPHGEAL SPASM. SHE IS IN BED, CALL LIGHT WITH IN, NO SIGNS OR SYMPTOMS OF DISTRESS, PLAN OF CARE ONGOING.
[2023-07-09 20:00] VITALS: BP 112/79
[2023-07-09] MEDS ORDERED: MetroNIDAZOLE 500 MG Tab PO SCH (21:00)
[2023-07-10 03:56] VITALS: BP 107/59
--- NOTE | 2023-07-10 04:06 | NUR ---
Shift Summary Patient is a 48 year old female who came to the ER with a general complaint of not feeling well. She had been treated recently for an infection and was concerned about it. She was found to have an elevated troponin level and some cardiac concerns. Patient seemed less anxious tonight than last night. Respirations are regular and unlabored. Lung sounds clear. She is on room air. Skin warm and dry. She denies any chest pain. She is on tele with an atrial paced Rhythm of 63.
[2023-07-10 05:14] LABS: International Normalized Ratio 1.86; Prothrombin Time Results 18.9 Sec (9.7-11.5)
[2023-07-10] MEDS ORDERED: Levothyroxine Sodium 0.075 MG Tab PO SCH (06:00)
[2023-07-10 07:27] VITALS: BP 123/59
[2023-07-10 16:30] VITALS: BP 106/63
--- NOTE | 2023-07-10 16:30 | NUR ---
AT ~ 1515, PATIENT REPORTED TO GAIL HUTCHISON THAT SHE HAD BEEN HAVING "CHEST PAIN FOR THE PAST TWENTY MINUTES." THIS AUTHOR REQUESTED THAT TRAVEL COUNSELOR Vince SANDY DO 12 LEAD ECG. TELEMETRY WAS CALLED AND THEY NOTED NO ECTOPY OR SUSPICIOUS RHYTHMS. WHEN TRAVEL COUNSELOR AND THIS AUTHOR APPROACHED ROOM TO DO ECG, PATIENT WAS SITTING ON SOFA IN ROOM WITH A MALE GREEN END WORKER AND STATED THAT SHE NO LONGER HAD CHEST PAIN, THAT IT WAS "A COUPLE OF CHEST SPASMS IN THE LAST TWENTY MINUTES." REFUSED ECG. EDUCATED PATIENT TO CALL THE INSTANT CHEST PAIN OCCURS; VERBALIZED UNDERSTANDING OF INSTRUCTIONS.
--- NOTE | 2023-07-10 16:35 | NUR ---
PATIENT CALLED THIS AUTHOR TO ROOM USING CALL LIGHT. SHE WAS BACK IN BED, BUT STATED "WHEN I WENT FROM THERE (SOFA) TO HERE (BED), I ALMOST BLACKED OUT." EDUCATED PATIENT THAT IF SHE WAS FEELING FAINT, THAT INCREASES HER RISK FOR FALLING AND HER BED ALARM WOULD HAVE TO BE ACTIVATED. SHE ADAMANTLY REFUSED, STATING "I HAVE SENSORY ISSUES. IF YOU TURN THAT THING ON, I WILL TURN IT OFF. DO NOT TURN IT ON." EDUCATED PT TO CALL FOR ASSISTANCE PRIOR TO GETTING OOB TO ALLOW STAFF TO HELP HER. HER COMPLIANCE IS NOT EXPECTED.
--- NOTE | 2023-07-10 17:09 | NUR ---
@5840 PATIENTS VITALS TAKEN BY THIS AUTHOR. PATIENT EXPRESSED HR DROPPING TO 30'S WHEN LEAVING ROOM AND RE-ENTERING.PATIENT ASKED HOW THEY GOT THAT NUMBER AND STATING THEY WERE WATCHING VITALS CART. THIS AUTHOR CALLED TELEMETRY AND VERIFIED RATE AND RYTHM. PATIENTS RATE WAS 60'S AND RYTHM ATRIAL PACED. DISCUSSING ARTIFACT WITH TELEMETRY, THEY STATED IT COULD BE D/T ELECTRONICS. IPAD REMOVED FROM UNDERNEATH OF TELEMETRY BOX. PT ECDUCATED ON IMPORTANCE OF KEEPING ELECTRONICS AWAY FROM TELEMETRY BOX. CYDNEY ROBBINS NOTIFIED OF OBSERVATION.
[2023-07-10] MEDS ORDERED: Warfarin Sodium 5 MG Tab PO SCH (18:00)
--- NOTE | 2023-07-10 19:22 | NUR ---
SHIFT SUMMARY: PLEASE SEE PREVIOUS NOTES. A&O X 4, CONFABULATES CHEST PAIN SYMPTOMS IN A LIKELY ATTEMPT TO STAY INPATIENT SHE IS NEWLY UNSHELTERED. NO EVENTS ON TELEMETRY, ATRIAL PACED AT 60. DAILY WEIGHT 72 KG. PATIENT IS QUITE PICKY ABOUT WHICH MEDICATIONS SHE WILL TAKE WHEN. ALDACTONE NOT GIVEN D/T BP 106/63. C/O BACK PAIN; LIDOCAINE PATCH AND MULTIPLE MEDS GIVEN. INDEPENDENT IN ROOM. REFUSING BED ALARM.
[2023-07-10 20:03] VITALS: BP 107/63
[2023-07-10] MEDS ORDERED: Cephalexin Monohydrate 500 MG Cap PO SCH (21:00)
[2023-07-11 04:11] VITALS: BP 100/54
--- NOTE | 2023-07-11 04:17 | NUR ---
SHIFT SUMMARY; PATIENT VERY ANXIOUS AND AGITATED AT BEGINNING OF NOC SHIFT. THIS RN GOES THROUGH NOC MEDS WITH HER AND PATIENT DECIDES WHAT MEDICATIONS SHE WILL AND WON'T TAKE. PATIENT CONCERNED THAT SHE NORMALLY TAKES 600MG GABAPENTIN TID AND IS ONLY TAKING 200MG TID IN HOSPITAL. PATIENT ALSO REQUESTS 3 SLEEPING AIDS AT ONE TIME ON NOC SHIFT. THIS RN CLINICAL JUDGEMENT TO GIVE 2 SLEEP AIDS AND TO HOLD THIRD. THIS RN SPENDS TIME IN ROOM WITH PAITENT AND TALKS WITH HER ABOUT HER CONCERNS AND HER FEARS. PATIENT EXPRESSES MUCH RELIEF. SPOUSE SPENDS NIGHT WITH PATIENT IN ROOM.
[2023-07-11 05:21] LABS: International Normalized Ratio 1.88
[2023-07-11 07:56] VITALS: BP 108/62
--- NOTE | 2023-07-11 12:24 | NUR ---
Call back - Pt and spouse were present, watching holiness programming online. The couple provided space to vent and reflect on their predicament. Discussed resources they have utilized. Both voiced limited to no support from family. Empathic listening, acknowledgement of their situation, promised prayer provided.They voiced gratitude for the visit.
[2023-07-11] MEDS ORDERED: Gabapentin 400 MG Cap PO SCH (14:00)
[2023-07-11] MEDS ORDERED: Spironolactone 25 MG Tab PO SCH (14:00)
[2023-07-11 15:07] VITALS: BP 104/58
--- NOTE | 2023-07-11 17:16 | NUR ---
Palliative Care RN to room as requested by primary RN. Pt resting with eyes closed and appears to be sleeping. She did not wake to her name. No S/Sx of distress noted. PC RN will attempt another visit tomorrow 07/12/23.
[2023-07-11] MEDS ORDERED: Warfarin Sodium 5 MG Tab PO SCH (18:00)
--- NOTE | 2023-07-11 18:24 | NUR ---
ALERT AND ORIENTED, EMOTIONAL LIABLE, UNCONSOLABLE, PATIENT REORTS BEING UNABLE TO HANDLE ANYTHING, CANT KEEP HER A.D.D. IN ORDER AND NEEDS TO GET THINGS DONE. PATIENT REPORTED WANTING BEHAVIORAL CONSULTING, PSYCH EVAL ENTERED. NEW ORDER FOR TOX SCREEN. BOYFRIEND/? IN ROOM, AND STAYING THE NIGHT, BOTH LAYING IN THE SAME BED. REPORTED TO CHURN TENDER. NO TELE EVENTS REPORTED, INDEPENDANT IN ROOM, CALL LIGHT WITH IN REACH, WILL RELAY TO PM RN
[2023-07-11 19:42] VITALS: BP 89/57
[2023-07-11 19:44] VITALS: BP 94/46
[2023-07-11 22:30] LABS: U Amphetamine Screen Not Detected; U Barbituate Screen Not Detected; U Benzodiazapine Screen Not Detected; U Buprenorphine Screen Not Detected; U Cannabinoids Screen DETECTED; U Cocaine Screen Not Detected; U Methadone Screen Not Detected; U Methamphetamine Screen Not Detected; U Opiates Screen Not Detected; U Oxycodone Screen Not Detected; U Phencyclidine Screen Not Detected
--- NOTE | 2023-07-12 04:02 | NUR ---
SHIFT SUMMARY; PATIENT VERY TEARY THIS EVENING. SHE IS CONCERNED ABOUT BEING HOMELESS AND NOT WANTING TO LIVE ON THE STREETS. HER SPOUSE STAYS IN ROOM OVERNIGHT WITH HER. PATIENT REFUSES HER METOPROLOL "I DON'T FEEL I NEED IT MY RHYTHM IS OK" PATIENTS BLOOD PRESSURE IS SOFT AT SHIFT CHANGE EARLY IN NOC SHIFT. SHE IS UP AND WALKING IN HALLWAY. DENIES ANY DIZZYNESS OR WEAKNESS. SPOUSE WALKS WITH HER. PER TELE PAITENT REMAINS ATRIAL PACED. SHE DENIES ANY CP OR PRESSUSRE. NO ACUTE CHANGES IN CONDITION NOTED DURING SHIFT.
[2023-07-12 04:58] LABS: International Normalized Ratio 2.59; Prothrombin Time Results 25.8 Sec (9.7-11.5)
[2023-07-12 05:43] VITALS: BP 111/57
[2023-07-12 07:47] VITALS: BP 115/61
--- NOTE | 2023-07-12 12:51 | NUR ---
PT DROWSY THIS MORNING. WOKE UP AT 1100. DECLINED TO TAKE MEDICATIONS EARLIER THAN 1100.
[2023-07-12 15:28] VITALS: BP 112/56
[2023-07-12 17:31] VITALS: BP 114/67
[2023-07-12] MEDS ORDERED: Warfarin Sodium 5 MG Tab PO SCH (18:00)
[2023-07-12 19:40] VITALS: BP 106/63
--- NOTE | 2023-07-12 19:58 | NUR ---
DR. REA CALLED RN TO PLACE VERBAL ORDERS FOR MEDICATION. VERIFIED ORDER WITH MD PRIOR TO PLACING ORDERS. PLS SEE EMAR.
--- NOTE | 2023-07-12 20:00 | NUR ---
NO ACUTE CHANGES. PT REPORT HEADACHE AND GAIN IN 4 LBS OF WEIGHT IN 24 HOURS. TREATED PER EMAR. PT IS ALERT AND ORIENTED X4, INDEPENDENT IN THE ROOM, ABLE TO MAKE NEEDS KNOWN, PT BECAME VERY AGGITATED AND ANXIOUS TODAY RELATED TO FAMILY. TREATED PER EMAR. SPIRITUAL AND ANIMAL VISITS REQUESTED TODAY.
[2023-07-12] MEDS ORDERED: Prazosin HCl 1 MG Cap PO SCH (21:00)
[2023-07-12] MEDS ORDERED: HyDROXyzine HCl 25 MG Tab PO SCH (21:00)
[2023-07-12] MEDS ORDERED: Melatonin 3 MG Tab PO SCH (21:00)
[2023-07-13 02:32] LABS: International Normalized Ratio 3.13; Prothrombin Time Results 30.8 Sec (9.7-11.5)
[2023-07-13 02:41] LABS: Albumin, Blood 3.8 g/dL (3.4-5.0); Albumin/Globulin Ratio 1.2 (0.8-1.8); Bilirubin, Total 0.3 mg/dL (0.1-1.0); Bun/Creatinine Ratio 15.7 (12.0-20.0); Creatinine, Blood 1.27 mg/dL (0.40-1.00); Globulin, Blood 3.3 g/dL (2.2-4.0); Potassium, Blood 3.4 mmol/L (3.5-5.5); Total Protein, Blood 7.1 g/dL (6.4-8.2)
[2023-07-13] MEDS ORDERED: Potassium Chloride 20 MEQ TabCR PO ONE (03:05)
[2023-07-13 03:18] VITALS: BP 110/62
--- NOTE | 2023-07-13 04:55 | NUR ---
SHIFT SUMMARY ADMITTED FOR CHEST PAIN. FULL CODE. CARE MANAGEMENT IS WORKING ON EMERGENCY HOUSING FOR HER AND HER BOYFRIEND, HE IS AT BEDSIDE. TELEMETRY: PACED @ [address] CRUM IS PSYCHIATRIC CONSULT. ON RA. CONTINENT. HEART HEALTHY DIET. PT BECAME ANXIOUS ABOUT HER POTASSIUM LEVEL DURING SHIFT AND WANTED THE HOSPITALIST NOTIFIED. I DID DO SO. NEW LABS ORDERED. HOSPITALIST INFORMED OF RESULTS. ONE TIME DOSE FOR K+ GIVEN.
[2023-07-13 07:28] VITALS: BP 102/57
[2023-07-13] MEDS ORDERED: Venlafaxine HCl 75 MG CapCR PO SCH (09:00)
[2023-07-13] MEDS ORDERED: Calcium Carbon500 MG PO (12:16)
[2023-07-13] MEDS ORDERED: CEPH500 PO (12:18)
[2023-07-13] MEDS ORDERED: KLONOPIN0.5 M9 PO (12:19)
[2023-07-13] MEDS ORDERED: FAMO20 PO (12:20)
[2023-07-13] MEDS ORDERED: SPIR25 PO (12:20)
[2023-07-13] MEDS ORDERED: VENL37.5ER PO (12:21)
--- NOTE | 2023-07-13 14:35 | NUR ---
PT RESTING QUIETLY AT START OF SHIFT, S/O SLEEPING IN RM AT BS. PT UP INDEPENDENTLY IN RM AND TO BTHRM. PT REQUESTING SHOWER; SUPPLIES SET UP. S/O INSTEAD TOOK A SHOWER. SW AND EDITOR PUBLICATIONS IN TO TALK WITH PT. DR DEMPSEY LATER IN TO SEE PT, WHEN AWAKE. D/C ORDERS PLACED. MEDS FAXED TO [facility] PER PT REQUEST. PHARMACY IN TO TALK WITH PT REGARDING D/C MEDS. PT VERBALIZED UNDERSTANDING. D/C INSTRUCTIONS REVIEWED WITH PT. PT DECLINED ASSISTANCE OUT TO CAR. ALL BELONGINGS WENT WITH PT.
[2023-07-13] MEDS ORDERED: Warfarin Sodium 5 MG Tab PO ONE (18:00)
[2023-07-13] MEDS ORDERED: Potassium Chloride 20 MEQ TabCR PO SCH (18:00)
[2023-07-14] MEDS ORDERED: Famotidine 20 MG Tab PO SCH (09:00)
== END 2023-07-13 13:00 | disposition home or self-care (01) ==
LOC: ER 04:40 → MEDS 04:41 → ER 06:21 → MEDS 10:02
PROVIDERS: Emergency Medicine; Internal Medicine; Student in an Organized Health Care Education/Training Program; ADMIT Student in an Organized Health Care Education/Training Program
DX: R07.9 Chest pain, unspecified (principal); I42.2 Other hypertrophic cardiomyopathy; Z95.810 Presence of automatic (implantable) cardiac defibrillator; I10 Essential (primary) hypertension; E87.6 Hypokalemia; E03.9 Hypothyroidism, unspecified; G89.29 Other chronic pain; F25.0 Schizoaffective disorder, bipolar type; Z79.02 Long term (current) use of antithrombotics/antiplatelets; Z95.4 Presence of other heart-valve replacement; N76.0 Acute vaginitis; Z59.00 Homelessness unspecified; I25.2 Old myocardial infarction; Z79.899 Other long term (current) drug therapy
CPT/HCPCS: 0202U; 36415; 71045; 78452; 80053; 83735; 83880; 84484; 85025; 85610; 92610; 93005; 93010; 93017; 93306; 94760; 96360; 99285-25; A9270; A9500; G0378; J0706; J2785; J7030

== ENCOUNTER → 2024-01-17 | Outpatient (CLI) | payer MEDICARE, OTHER ==
[~2024-01-17] MED LIST changes: +ACYCLOVIR400 MG PO; +CEPH500 PO; +Calcium Carbon500 MG PO; +KLONOPIN0.5 M9 PO; +LIDOCAINE1 EACH TD; +METR500 PO; +MINIPRESS2 M1 PO; +Robaxin750 MG PO
== END ==
LOC: LAB 15:53 → LAB SHORT 15:53
DX: N39.0 Urinary tract infection, site not specified (principal)
CPT/HCPCS: 87086

== ENCOUNTER → 2024-01-25 | Outpatient (CLI) | payer MEDICARE, OTHER | END | disposition home or self-care (01) | LOC: LAB 17:07 → LAB SHORT 17:07 | DX: N89.8 Other specified noninflammatory disorders of vagina (principal) | CPT/HCPCS: 87070; 87077; 87186; 87205 ==

== ENCOUNTER 2024-02-28 19:04 | Emergency (ER) | payer MEDICARE, OTHER ==
[~2024-02-28] VITALS: Ht 160 cm; Wt 78.0 kg
[2024-02-28 20:03] LABS: BASOPHILS ABSOLUTE AUTO 0.06 K/mm3 (0.00-0.23); BASOPHILS PERCENT AUTO 1 % (0-2); EOSINOPHILS ABSOLUTE AUTO 0.44 K/mm3 (0.00-0.68); EOSINOPHILS PERCENT AUTO 4 % (0-6); Hematocrit 37.3 % (33.0-51.0); Hemoglobin 12.3 g/dL (11.5-16.0); IMMATURE GRAN ABSOLUTE AUTO 0.09 K/mm3 (0.00-0.10); IMMATURE GRAN PERCENT AUTO 1 % (0-1); LYMPHOCYTES ABSOLUTE AUTO 2.36 K/mm3 (0.84-5.20); LYMPHOCYTES PERCENT AUTO 22 % (21-46); MONOCYTES ABSOLUTE AUTO 0.84 K/mm3 (0.16-1.47); MONOCYTES PERCENT AUTO 8 % (4-13); Mean Corpuscular HGB 29.3 pg (26.0-34.0); Mean Corpuscular Volume 89 fL (80-100); Mean Platelet Volume 10.3 fL (9.1-12.4); NEUTROPHILS ABSOLUTE AUTO 6.85 K/mm3 (1.96-9.15); NEUTROPHILS PERCENT AUTO 64 % (41-73); Platelet Count 268 K/mm3 (150-400); RDW Coefficient Variation 13.8 % (11.7-14.2); RDW Standard Deviation 44.8 fL (35.1-46.3); White Blood Cell Count 10.64 K/mm3 (4.00-11.30)
[2024-02-28 20:19] LABS: Albumin, Blood 3.9 g/dL (3.4-5.0); Albumin/Globulin Ratio 1.3 (0.8-1.8); Bilirubin, Total 0.3 mg/dL (0.1-1.0); Bun/Creatinine Ratio 24.1 (12.0-20.0); Creatinine, Blood 0.96 mg/dL (0.40-1.00); Globulin, Blood 3.1 g/dL (2.2-4.0); Potassium, Blood 3.9 mmol/L (3.5-5.5)
[2024-02-28 20:52] LABS: Adenovirus Not Detected (NOT DETECT); Bordetella pertussis Not Detected (NOT DETECT); Chlamydophila pneumoniae Not Detected (NOT DETECT); Coronavirus 229E Not Detected (NOT DETECT); Coronavirus HKU1 Not Detected (NOT DETECT); Coronavirus NL63 Not Detected (NOT DETECT); Coronavirus OC43 Not Detected (NOT DETECT); Human Metapneumovirus Not Detected (NOT DETECT); Human Rhinovirus/Enterovirus Not Detected (NOT DETECT); Influenza A/2009-H1 Not Detected (NOT DETECT); Influenza A/H1 Not Detected (NOT DETECT); Influenza A/H3 Not Detected (NOT DETECT); Influenza B Not Detected (NOT DETECT); Mycoplasma pneumoniae Not Detected (NOT DETECT); Parainfluenza Virus 1 Not Detected (NOT DETECT); Parainfluenza Virus 2 Not Detected (NOT DETECT); Parainfluenza Virus 3 Not Detected (NOT DETECT); Parainfluenza Virus 4 Not Detected (NOT DETECT); Respiratory Syncytial Virus Not Detected (NOT DETECT); SARS-Cov-2 (COVID-19), BioFire Not Detected (NOT DETECT)
[2024-02-28 20:55] LABS: International Normalized Ratio 2.74; Prothrombin Time Results 27.2 Sec (9.7-11.5)
[2024-02-28] MEDS ORDERED: Bacitracin Zinc Oint 1GRAM UD Packet TOP ONE (22:45)
[2024-02-28 23:00] VITALS: BP 125/72
== END 2024-02-28 23:13 | disposition home or self-care (01) ==
LOC: ER 19:04
PROVIDERS: Emergency Medicine
DX: T21.12XA Burn of first degree of abdominal wall, initial encounter (principal); K44.9 Diaphragmatic hernia without obstruction or gangrene; I25.2 Old myocardial infarction; X08.8XXA Exposure to other specified smoke, fire and flames, initial encounter; Z79.01 Long term (current) use of anticoagulants; Z79.890 Hormone replacement therapy; Z79.899 Other long term (current) drug therapy; Z88.8 Allergy status to other drugs, medicaments and biological substances; I50.9 Heart failure, unspecified; Z95.0 Presence of cardiac pacemaker; Z95.2 Presence of prosthetic heart valve; Z11.52 Encounter for screening for COVID-19
CPT/HCPCS: 0202U; 71046; 80053; 84484; 85025; 85610; 93005; 93010; 99285-25

== ENCOUNTER 2024-03-05 17:32 | Emergency (ER) | payer MEDICARE, OTHER ==
[~2024-03-05] VITALS: Ht 160 cm; Wt 78.5 kg
[2024-03-05 17:57] LABS: BASOPHILS ABSOLUTE AUTO 0.06 K/mm3 (0.00-0.23); BASOPHILS PERCENT AUTO 1 % (0-2); EOSINOPHILS ABSOLUTE AUTO 0.41 K/mm3 (0.00-0.68); EOSINOPHILS PERCENT AUTO 5 % (0-6); Hematocrit 36.3 % (33.0-51.0); IMMATURE GRAN ABSOLUTE AUTO 0.05 K/mm3 (0.00-0.10); IMMATURE GRAN PERCENT AUTO 1 % (0-1); LYMPHOCYTES ABSOLUTE AUTO 1.91 K/mm3 (0.84-5.20); LYMPHOCYTES PERCENT AUTO 23 % (21-46); MONOCYTES ABSOLUTE AUTO 0.92 K/mm3 (0.16-1.47); MONOCYTES PERCENT AUTO 11 % (4-13); Mean Corpuscular HGB 28.9 pg (26.0-34.0); Mean Corpuscular HGB Conc 33.1 g/dL (31.5-36.5); Mean Corpuscular Volume 88 fL (80-100); Mean Platelet Volume 9.9 fL (9.1-12.4); NEUTROPHILS ABSOLUTE AUTO 5.04 K/mm3 (1.96-9.15); NEUTROPHILS PERCENT AUTO 60 % (41-73); Platelet Count 247 K/mm3 (150-400); RDW Coefficient Variation 13.9 % (11.7-14.2); RDW Standard Deviation 44.3 fL (35.1-46.3); Red Blood Cell Count 4.15 M/mm3 (3.80-5.20); White Blood Cell Count 8.39 K/mm3 (4.00-11.30)
[2024-03-05 18:22] LABS: Albumin, Blood 3.9 g/dL (3.4-5.0); Albumin/Globulin Ratio 1.1 (0.8-1.8); Bilirubin, Total 0.5 mg/dL (0.1-1.0); Bun/Creatinine Ratio 20.2 (12.0-20.0); Calcium, Blood 9.2 mg/dL (8.5-10.1); Creatinine, Blood 0.94 mg/dL (0.40-1.00); Globulin, Blood 3.5 g/dL (2.2-4.0); Magnesium, Blood 2.2 mg/dL (1.6-2.4); Potassium, Blood 3.9 mmol/L (3.5-5.5); Total Protein, Blood 7.4 g/dL (6.4-8.2)
[2024-03-05 19:44] LABS: Source, Urine Clean Catch
[2024-03-05 19:47] LABS: Appearance, Urine Clear (Clear); Bilirubin, Urine Neg (Neg); Blood, Urine Neg (Neg); Color, Urine Yellow (P-Yellow); Glucose Qualitative, Urine Neg (Neg); Ketones, Urine Neg (Neg); Leukocyte Esterase, Urine Neg (Neg); Nitrite, Urine Neg (Neg); Protein, Urine Neg (Neg); Specific Gravity, Urine 1.005 (1.003-1.022); Urobilinogen, Urine NORM (Normal)
[2024-03-05] MEDS ORDERED: Warfarin Sodium 5 MG Tab PO ONE (22:50)
[2024-03-05] MEDS ORDERED: ACET500 PO (22:57)
[2024-03-05 23:25] VITALS: BP 117/60
== END 2024-03-05 23:25 | disposition home or self-care (01) ==
LOC: ER 17:32
PROVIDERS: Emergency Medicine; Physician Assistant
DX: R19.7 Diarrhea, unspecified (principal); R07.9 Chest pain, unspecified; R11.2 Nausea with vomiting, unspecified; I50.9 Heart failure, unspecified; I25.2 Old myocardial infarction; Z95.0 Presence of cardiac pacemaker; Z88.8 Allergy status to other drugs, medicaments and biological substances; Z79.899 Other long term (current) drug therapy; Z79.01 Long term (current) use of anticoagulants
CPT/HCPCS: 71046; 80053; 81003; 83690; 83735; 84484; 85025; 93005; 93010; 99285-25; A9270

== ENCOUNTER → 2024-03-06 | Outpatient (CLI) | payer MEDICARE, OTHER ==
[2024-03-06 20:52] LABS: Adenovirus F 40/41 Not Detected (NOT DETECT); Astrovirus Not Detected (NOT DETECT); Campylobacter Sp Not Detected (NOT DETECT); Cryptosporidium Not Detected (NOT DETECT); Cyclospora Cayetanensis Not Detected (NOT DETECT); E. Coli O157 Not Detected (NOT DETECT); Entamoeba Histolytica Not Detected (NOT DETECT); Enteroaggregative E. coli-EAEC Not Detected (NOT DETECT); Enteropathogenic E. coli-EPEC Not Detected (NOT DETECT); Enterotoxigenic E. coli-ETEC Not Detected (NOT DETECT); Giardia Lamblia Not Detected (NOT DETECT); Norovirus GI/GII Not Detected (NOT DETECT); Plesiomonas Shigelloides Not Detected (NOT DETECT); Rotavirus A Not Detected (NOT DETECT); Salmonella Sp Not Detected (NOT DETECT); Sapovirus Not Detected (NOT DETECT); Shiga Toxin-prod E. coli-STEC Not Detected (NOT DETECT); Shigella/Enteroin E. coli-EIEC Not Detected (NOT DETECT); Vibrio Cholerae Not Detected (NOT DETECT); Vibrio Sp Not Detected (NOT DETECT); Yersinia Enterocolitica Not Detected (NOT DETECT)
== END | disposition home or self-care (01) ==
LOC: LAB 18:09 → LAB SHORT 18:09
PROVIDERS: Emergency Medicine
DX: R19.7 Diarrhea, unspecified (principal)
CPT/HCPCS: 87507

== ENCOUNTER → 2024-03-09 | Outpatient (CLI) | payer MEDICARE, OTHER | LOC: LAB 15:18 → LAB SHORT 15:18 | DX: N39.0 Urinary tract infection, site not specified (principal) | CPT/HCPCS: 87086 ==

== ENCOUNTER 2024-03-21 18:28 | Emergency (ER) | payer MEDICARE, OTHER ==
[~2024-03-21] VITALS: Ht 160 cm; Wt 82.5 kg
[2024-03-21 18:33] VITALS: BP 154/102
== END 2024-03-21 18:46 | disposition left against medical advice (07) ==
LOC: ER 18:28
DX: R45.851 Suicidal ideations (principal); Z53.29 Procedure and treatment not carried out because of patient's decision for other reasons
CPT/HCPCS: 99281

== ENCOUNTER 2024-03-29 13:29 | Emergency (ER) | payer MEDICARE, OTHER ==
[~2024-03-29] VITALS: Ht 160 cm; Wt 81.7 kg
[2024-03-29 14:17] LABS: BASOPHILS ABSOLUTE AUTO 0.08 K/mm3 (0.00-0.23); BASOPHILS PERCENT AUTO 1 % (0-2); EOSINOPHILS ABSOLUTE AUTO 0.15 K/mm3 (0.00-0.68); EOSINOPHILS PERCENT AUTO 2 % (0-6); Hematocrit 38.4 % (33.0-51.0); Hemoglobin 12.9 g/dL (11.5-16.0); IMMATURE GRAN ABSOLUTE AUTO 0.06 K/mm3 (0.00-0.10); IMMATURE GRAN PERCENT AUTO 1 % (0-1); LYMPHOCYTES ABSOLUTE AUTO 0.64 K/mm3 (0.84-5.20); LYMPHOCYTES PERCENT AUTO 6 % (21-46); MONOCYTES ABSOLUTE AUTO 0.35 K/mm3 (0.16-1.47); MONOCYTES PERCENT AUTO 4 % (4-13); Mean Corpuscular HGB 29.4 pg (26.0-34.0); Mean Corpuscular HGB Conc 33.6 g/dL (31.5-36.5); Mean Corpuscular Volume 88 fL (80-100); Mean Platelet Volume 10.2 fL (9.1-12.4); NEUTROPHILS ABSOLUTE AUTO 8.78 K/mm3 (1.96-9.15); NEUTROPHILS PERCENT AUTO 87 % (41-73); Platelet Count 281 K/mm3 (150-400); RDW Coefficient Variation 13.5 % (11.7-14.2); Red Blood Cell Count 4.39 M/mm3 (3.80-5.20); White Blood Cell Count 10.06 K/mm3 (4.00-11.30)
[2024-03-29 14:41] LABS: Albumin, Blood 3.9 g/dL (3.4-5.0); Albumin/Globulin Ratio 1.1 (0.8-1.8); Bilirubin, Total 0.6 mg/dL (0.1-1.0); Bun/Creatinine Ratio 20.2 (12.0-20.0); Calcium, Blood 9.2 mg/dL (8.5-10.1); Creatinine, Blood 1.14 mg/dL (0.40-1.00); Globulin, Blood 3.6 g/dL (2.2-4.0); Total Protein, Blood 7.5 g/dL (6.4-8.2)
[2024-03-29 15:08] LABS: Source, Urine Clean Catch
[2024-03-29 15:15] LABS: Appearance, Urine Clear (Clear); Bilirubin, Urine Neg (Neg); Blood, Urine Neg (Neg); Glucose Qualitative, Urine Neg (Neg); Ketones, Urine Neg (Neg); Leukocyte Esterase, Urine Neg (Neg); Nitrite, Urine Neg (Neg); Protein, Urine Neg (Neg); Specific Gravity, Urine 1.005 (1.003-1.022); Urobilinogen, Urine NORM (Normal)
[2024-03-29] MEDS ORDERED: METF500 (15:15)
[2024-03-29] MEDS ORDERED: MONT5TCH (15:15)
[2024-03-29 15:22] LABS: Color, Urine Pale Yellow (P-Yellow)
[2024-03-29] MEDS ORDERED: Morphine Sulfate 4 MG/1 ML Injection IV ONE (15:35)
[2024-03-29] MEDS ORDERED: Ketorolac Tromethamine 15mg Vial IV ONE (16:10)
[2024-03-29] MEDS ORDERED: HYDROmorphone HCl/Pf 1MG SYR IV ONE (17:25)
[2024-03-29] MEDS ORDERED: Cyclobenzaprine HCl 10 MG Tab PO ONE (18:30)
[2024-03-29] MEDS ORDERED: Warfarin Sodium 5 MG Tab PO ONE (20:50)
[2024-03-29] MEDS ORDERED: Acetaminophen 500 MG Tab PO ONE (20:50)
[2024-03-29] MEDS ORDERED: Methocarbamol 500 MG Tab PO PRN (20:50)
[2024-03-29] MEDS ORDERED: Gabapentin 300 MG Cap PO SCH (21:00)
[2024-03-29] MEDS ORDERED: Melatonin 5 MG Tablet PO ONE (21:10)
[2024-03-29] MEDS ORDERED: HyDROXyzine HCl 25 MG Tab PO ONE (21:10)
[2024-03-29] MEDS ORDERED: Prazosin HCL 5 MG Cap PO ONE ×2 (21:10→21:20)
[2024-03-29] MEDS ORDERED: Prazosin HCl 1 MG Cap PO ONE (21:20)
[2024-03-29] MEDS ORDERED: Famotidine 20 MG Tab PO ONE (21:30)
[2024-03-29] MEDS ORDERED: OxyCODONE HCL 5 MG TAB PO PRN (21:50)
[2024-03-29] MEDS ORDERED: AUVELITY ER 451 EACH PO (23:06)
[2024-03-29] MEDS ORDERED: Potassium Chloride 10 Meq Tablet SA PO ONE (23:15)
[2024-03-29] MEDS ORDERED: Cranberry Extract 250MG W/30 MG Vitamin C Tab PO ONE (23:15)
[2024-03-30] MEDS ORDERED: Levothyroxine Sodium 0.088 MG Tab PO ONE (08:20)
[2024-03-30] MEDS ORDERED: Ibuprofen 600 MG Tab PO ONE (08:30)
[2024-03-30] MEDS ORDERED: WARF7.5 PO (08:49)
[2024-03-30] MEDS ORDERED: Famotidine 20 MG Tab PO ONE (08:55)
[2024-03-30 09:44] VITALS: BP 122/67
== END 2024-03-30 10:05 | disposition short-term general hospital (02) ==
LOC: ER 13:29
PROVIDERS: Physician Assistant
DX: R15.9 Full incontinence of feces (principal); R32 Unspecified urinary incontinence; G89.29 Other chronic pain; M54.9 Dorsalgia, unspecified; I50.9 Heart failure, unspecified; I25.2 Old myocardial infarction; Z95.810 Presence of automatic (implantable) cardiac defibrillator
CPT/HCPCS: 80053; 81003; 85025; 86140; 96374; 96375; 99284-25; A9270; J1171; J1885; J2270

== ENCOUNTER → 2024-04-19 | Outpatient (CLI) | payer MEDICARE, OTHER ==
[~2024-04-19] MED LIST changes: +AUVELITY ER 451 EACH PO; +METF500; +MONT5TCH
== END ==
LOC: LAB 17:41 → LAB SHORT 17:41
DX: B37.0 Candidal stomatitis (principal); K13.79 Other lesions of oral mucosa
CPT/HCPCS: 87070; 87205

== ENCOUNTER → 2024-04-24 | Outpatient (CLI) | payer MEDICARE, OTHER | END | disposition home or self-care (01) | LOC: LAB 18:00 → LAB SHORT 18:00 | DX: J02.9 Acute pharyngitis, unspecified (principal); B37.0 Candidal stomatitis | CPT/HCPCS: 87081 ==

== ENCOUNTER → 2024-08-03 | Outpatient (CLI) | payer OTHER | LOC: LAB 15:35 → LAB SHORT 15:35 | DX: N64.52 Nipple discharge (principal) | CPT/HCPCS: 87070; 87205 ==

== ENCOUNTER → 2024-09-15 | Outpatient (CLI) | payer OTHER ==
[~2024-09-15] MED LIST changes: +METFORMIN HCL500 M2 PO; +NYSTATIN100000 U13
== END ==
LOC: LAB 14:00 → LAB SHORT 14:00
DX: N64.52 Nipple discharge (principal)
CPT/HCPCS: 87070; 87205

== ENCOUNTER 2024-09-17 14:00 | Observation (INO) | payer OTHER ==
[~2024-09-17] VITALS: Ht 170.2 cm; Wt 81.7 kg
[~2024-09-17 14:00] MED LIST changes: -METFORMIN HCL500 M2 PO; -NYSTATIN100000 U13
[2024-09-17] MEDS ORDERED: Haloperidol Lactate Inj. 5 MG/ML Injection IM ONE (14:20)
[2024-09-17] MEDS ORDERED: LORazepam 2 MG/ML 1ML Injection IV ONE (14:30)
[2024-09-17 14:31] LABS: BASOPHILS ABSOLUTE AUTO 0.07 K/mm3 (0.00-0.23); BASOPHILS PERCENT AUTO 1 % (0-2); EOSINOPHILS ABSOLUTE AUTO 0.34 K/mm3 (0.00-0.68); EOSINOPHILS PERCENT AUTO 4 % (0-6); Hematocrit 39.6 % (33.0-51.0); Hemoglobin 12.9 g/dL (11.5-16.0); IMMATURE GRAN ABSOLUTE AUTO 0.06 K/mm3 (0.00-0.10); IMMATURE GRAN PERCENT AUTO 1 % (0-1); LYMPHOCYTES ABSOLUTE AUTO 1.96 K/mm3 (0.84-5.20); LYMPHOCYTES PERCENT AUTO 23 % (21-46); MONOCYTES PERCENT AUTO 9 % (4-13); Mean Corpuscular HGB 28.7 pg (26.0-34.0); Mean Corpuscular HGB Conc 32.6 g/dL (31.5-36.5); Mean Corpuscular Volume 88 fL (80-100); Mean Platelet Volume 10.3 fL (9.1-12.4); NEUTROPHILS ABSOLUTE AUTO 5.27 K/mm3 (1.96-9.15); NEUTROPHILS PERCENT AUTO 62 % (41-73); Platelet Count 313 K/mm3 (150-400); RDW Coefficient Variation 15.3 % (11.7-14.2)
[2024-09-17 14:58] LABS: Ethanol (Alcohol), Blood, Med <3 mg/dL; Salicylate <1.7 mg/dL (2.8-20.0)
[2024-09-17] MEDS ORDERED: HYDROmorphone HCl/Pf 1MG SYR IV ONE (15:00)
[2024-09-17 15:01] LABS: Acetaminophen, Random <2.0 ug/mL (10.0-30.0); Alanine Aminotransfer (ALT/SGP 46 U/L (12-78); Albumin, Blood 4.3 g/dL (3.4-5.0); Albumin/Globulin Ratio 1.1 (0.8-1.8); Alk Phos 106 U/L (50-136); Anion Gap 10 mmol/L (3-11); Aspartate Aminotrans (AST/SGOT 30 U/L (12-37); Bilirubin, Total 0.4 mg/dL (0.1-1.0); Blood Urea Nitrogen 16 mg/dL (8-24); Bun/Creatinine Ratio 17.3 (12.0-20.0); CO2, Blood 22 mmol/L (21-32); Calcium, Blood 9.2 mg/dL (8.5-10.1); Chloride, Blood 109 mmol/L (98-108); Creatinine, Blood 0.93 mg/dL (0.40-1.00); Globulin, Blood 3.8 g/dL (2.2-4.0); Glomerular Filtration Rate 74 (60-); Glucose, Blood 103 mg/dL (70-99); Potassium, Blood 4.4 mmol/L (3.5-5.5); Sodium, Blood 137 mmol/L (136-145); Total Protein, Blood 8.1 g/dL (6.4-8.2)
[2024-09-17] MEDS ORDERED: Methocarbamol 500 MG Tab PO ONE (15:15)
[2024-09-17 15:16] LABS: Source, Urine Clean Catch
[2024-09-17 15:19] LABS: Appearance, Urine Clear (Clear); Bilirubin, Urine Neg (Neg); Blood, Urine Neg (Neg); Color, Urine Yellow (P-Yellow); Glucose Qualitative, Urine Neg (Neg); Ketones, Urine Neg (Neg); Leukocyte Esterase, Urine Neg (Neg); Nitrite, Urine Neg (Neg); Protein, Urine Neg (Neg); Specific Gravity, Urine 1.015 (1.003-1.022); Urobilinogen, Urine NORM (Normal)
[2024-09-17 15:31] LABS: U Amphetamine Screen Not Detected; U Barbituate Screen Not Detected; U Benzodiazapine Screen Not Detected; U Buprenorphine Screen Not Detected; U Cannabinoids Screen DETECTED; U Cocaine Screen Not Detected; U Methadone Screen Not Detected; U Methamphetamine Screen Not Detected; U Opiates Screen Not Detected; U Oxycodone Screen Not Detected; U Phencyclidine Screen Not Detected
[2024-09-17] MEDS ORDERED: Ketorolac Tromethamine 15mg Vial IV ONE (16:30)
[2024-09-17] MEDS ORDERED: ClonazePAM 1 MG Tab PO ONE (17:45)
[2024-09-17] MEDS ORDERED: OLANZapine 5 MG Tab PO ONE (20:05)
[2024-09-17] MEDS ORDERED: Acetaminophen 325 MG TABLET PO PRN (20:05)
[2024-09-17] MEDS ORDERED: Lidocaine 4% 1 Patch TOP PRN (22:15)
[2024-09-17] MEDS ORDERED: Diclofenac Sodium 100 GM TUBE TOP PRN (22:15)
[2024-09-17] MEDS ORDERED: ClonazePAM 0.5 MG Tab PO PRN (22:15)
[2024-09-17] MEDS ORDERED: HyDROXyzine HCl 25 MG Tab PO PRN (22:15)
[2024-09-17] MEDS ORDERED: Prazosin HCL 5 MG Cap PO ONE (22:20)
[2024-09-17] MEDS ORDERED: Capsaicin 0.025% Cream TOP PRN (22:20)
[2024-09-17] MEDS ORDERED: Melatonin 5 MG Tablet PO SCH (22:25)
[2024-09-17] MEDS ORDERED: PRAZOSIN HCL PO ONE (22:30)
[2024-09-18] MEDS ORDERED: Ibuprofen 400 MG Tab PO SCH
[2024-09-18 11:25] VITALS: BP 128/69
[2024-09-18] MEDS ORDERED: MONT10T PO (12:25)
[2024-09-18] MEDS ORDERED: NYSTATIN100000 U13 (12:26)
[2024-09-18] MEDS ORDERED: METFORMIN HCL500 M2 PO (12:27)
[2024-09-18] MEDS ORDERED: Acetaminophen/Aspirin/Caffeine 250/250/65 MG PO PRN (12:45)
[2024-09-18] MEDS ORDERED: MetFORMIN HCl 500 mg PO SCH (13:20)
[2024-09-18] MEDS ORDERED: Torsemide 10 MG TAB PO SCH (13:25)
[2024-09-18] MEDS ORDERED: Prazosin HCL 5 MG Cap PO SCH (13:30)
[2024-09-18] MEDS ORDERED: Potassium Chloride 10 Meq Tablet SA PO SCH (13:30)
[2024-09-18] MEDS ORDERED: Potassium Chloride 20 MEQ TabCR PO PRN (13:55)
[2024-09-18] MEDS ORDERED: Torsemide 10 MG TAB PO PRN (13:55)
[2024-09-18] MEDS ORDERED: Lidocaine 4% 1 Patch TOP PRN (13:55)
[2024-09-18] MEDS ORDERED: Prazosin HCl 1 MG Cap PO PRN (13:55)
[2024-09-18] MEDS ORDERED: Gabapentin 300 MG Cap PO SCH (21:00)
[2024-09-18] MEDS ORDERED: Prazosin HCl 1 MG Cap PO SCH (21:00)
[2024-09-18] MEDS ORDERED: Metoprolol Tartrate 25 MG Tab PO SCH (21:00)
[2024-09-18] MEDS ORDERED: Famotidine 20 MG Tab PO SCH (21:00)
[2024-09-18] MEDS ORDERED: Melatonin 5 MG Tablet PO SCH (21:00)
[2024-09-19] MEDS ORDERED: Levothyroxine Sodium 0.088 MG Tab PO SCH (06:00)
[2024-09-19] MEDS ORDERED: MetFORMIN HCl 500 mg PO SCH (06:00)
[2024-09-19] MEDS ORDERED: Montelukast Sodium 10 MG Tab PO SCH (09:00)
[2024-09-19] MEDS ORDERED: Spironolactone 25 MG Tab PO SCH (09:00)
== END 2024-09-18 16:54 | disposition home or self-care (01) ==
LOC: ER 14:00 → EOR 14:01
PROVIDERS: ADMIT Student in an Organized Health Care Education/Training Program
DX: F31.9 Bipolar disorder, unspecified (principal); R45.851 Suicidal ideations; E06.3 Autoimmune thyroiditis; I25.2 Old myocardial infarction; I50.9 Heart failure, unspecified; F43.10 Post-traumatic stress disorder, unspecified; F60.3 Borderline personality disorder; M51.379 Other intervertebral disc degeneration, lumbosacral region without mention of lumbar back pain or lower extremity pain; Z79.84 Long term (current) use of oral hypoglycemic drugs; Z79.899 Other long term (current) drug therapy; Z88.8 Allergy status to other drugs, medicaments and biological substances; Z95.0 Presence of cardiac pacemaker
CPT/HCPCS: 36415; 51701; 70450; 72131; 80053; 80320; 81003; 81025; 85025; 93005; 93010; 96374; 96375; 99285-25; A9270; G0378; G0480; J1171; J1885; J2060

== ENCOUNTER 2024-10-11 14:47 | Emergency (ER) | payer OTHER ==
[~2024-10-11] VITALS: Ht 160 cm; Wt 82.1 kg
[~2024-10-11 14:47] MED LIST changes: +METFORMIN HCL500 M2 PO; +NYSTATIN100000 U13
[2024-10-11] MEDS ORDERED: Ketorolac Tromethamine 15mg Vial IV ONE (15:05)
[2024-10-11] MEDS ORDERED: OxyCODONE 10/Acetamin 325 TABLET PO ONE (15:10)
[2024-10-11 15:33] LABS: BASOPHILS ABSOLUTE AUTO 0.06 K/mm3 (0.00-0.23); BASOPHILS PERCENT AUTO 1 % (0-2); EOSINOPHILS ABSOLUTE AUTO 0.27 K/mm3 (0.00-0.68); EOSINOPHILS PERCENT AUTO 4 % (0-6); Hematocrit 37.3 % (33.0-51.0); Hemoglobin 12.3 g/dL (11.5-16.0); IMMATURE GRAN ABSOLUTE AUTO 0.04 K/mm3 (0.00-0.10); IMMATURE GRAN PERCENT AUTO 1 % (0-1); LYMPHOCYTES ABSOLUTE AUTO 1.38 K/mm3 (0.84-5.20); LYMPHOCYTES PERCENT AUTO 21 % (21-46); MONOCYTES ABSOLUTE AUTO 0.67 K/mm3 (0.16-1.47); MONOCYTES PERCENT AUTO 10 % (4-13); Mean Corpuscular HGB 28.9 pg (26.0-34.0); Mean Corpuscular Volume 88 fL (80-100); NEUTROPHILS ABSOLUTE AUTO 4.24 K/mm3 (1.96-9.15); NEUTROPHILS PERCENT AUTO 64 % (41-73); Platelet Count 265 K/mm3 (150-400); RDW Coefficient Variation 14.5 % (11.7-14.2); RDW Standard Deviation 46.5 fL (35.1-46.3); Red Blood Cell Count 4.25 M/mm3 (3.80-5.20); White Blood Cell Count 6.66 K/mm3 (4.00-11.30)
[2024-10-11 16:16] LABS: Bun/Creatinine Ratio 18.9 (12.0-20.0); C-REACTIVE PROTEIN, EXT RANGE 1.26 mg/dL (0.000-0.300); Calcium, Blood 10.1 mg/dL (8.5-10.1); Creatinine, Blood 1.11 mg/dL (0.40-1.00); Potassium, Blood 4.4 mmol/L (3.5-5.5)
[2024-10-11] MEDS ORDERED: OMEP20ER PO (20:25)
[2024-10-11] MEDS ORDERED: HYDROmorphone HCl/Pf 1MG SYR IV ONE (20:45)
[2024-10-11] MEDS ORDERED: Lidocaine 4% 1 Patch TOP ONE (20:45)
[2024-10-11] MEDS ORDERED: Gabapentin 300 MG Cap PO ONE (21:00)
[2024-10-11] MEDS ORDERED: Warfarin Sodium 5 MG Tab PO ONE (21:00)
[2024-10-11] MEDS ORDERED: Methocarbamol 500 MG Tab PO ONE (21:05)
[2024-10-11] MEDS ORDERED: HyDROXyzine HCl 25 MG Tab PO ONE (21:05)
[2024-10-11] MEDS ORDERED: LIDO700A20 TOP (22:14)
[2024-10-11 22:21] VITALS: BP 142/83
[2024-10-12] MEDS ORDERED: Prazosin HCl 1 MG Cap PO SCH (21:00)
== END 2024-10-11 22:21 | disposition home or self-care (01) ==
LOC: ER 14:47
PROVIDERS: Emergency Medicine
DX: M54.50 Low back pain, unspecified (principal); I50.9 Heart failure, unspecified; I25.2 Old myocardial infarction; Z88.8 Allergy status to other drugs, medicaments and biological substances; Z79.899 Other long term (current) drug therapy; Z79.890 Hormone replacement therapy; Z79.01 Long term (current) use of anticoagulants; Z95.0 Presence of cardiac pacemaker
CPT/HCPCS: 80048; 85025; 85651; 86140; 96374; 99283-25; A9270; J1171; J1885

== ENCOUNTER 2024-10-15 12:54 | Emergency (ER) | payer OTHER ==
[~2024-10-15] VITALS: Ht 160 cm; Wt 82.1 kg
[~2024-10-15 12:54] MED LIST changes: +LIDO700A20 TOP
[2024-10-15] MEDS ORDERED: EXCEDRIN PM HE1 EACH (13:36)
[2024-10-15] MEDS ORDERED: ACET325 PO (13:36)
[2024-10-15] MEDS ORDERED: CLIMARA1 EACH (13:37)
[2024-10-15] MEDS ORDERED: XYZAL5 MG (13:37)
[2024-10-15] MEDS ORDERED: IBUP200 (13:37)
[2024-10-15] MEDS ORDERED: TRAM50 PO (15:29)
[2024-10-15] MEDS ORDERED: HYDROmorphone HCl/Pf 1MG SYR IM ONE (15:30)
[2024-10-15 15:52] VITALS: BP 129/68
== END 2024-10-15 15:54 | disposition home or self-care (01) ==
LOC: ER 12:54
DX: M54.50 Low back pain, unspecified (principal); M54.2 Cervicalgia; G89.29 Other chronic pain; I25.2 Old myocardial infarction; I50.9 Heart failure, unspecified; Z95.2 Presence of prosthetic heart valve; Z95.810 Presence of automatic (implantable) cardiac defibrillator; Z79.01 Long term (current) use of anticoagulants
CPT/HCPCS: 96372; 99283-25; J1171